=== PATIENT | male | born 1975 | race Caucasian/White ===

== ENCOUNTER 2021-02-04 14:28 | Emergency (ER) | payer OTHER, SELFPAY ==
--- NOTE | ~2021-02-04 | XR_ITS ---
XR chest 1V portable DATE: 02/04/2021 17:57 INDICATION: Cough, fever, shortness of breath TECHNIQUE: Portable AP chest on 02/04/2021 at 1758 hours COMPARISON: None FINDINGS: Normal heart size. No pleural effusion or pulmonary vascular congestion or pneumothorax. Th ere are patchy bilateral pulmonary infiltrates, which more prominent centrally. Differential diagnosi s includes bilateral pneumonia and pulmonary edema.. IMPRESSION: Patchy bilateral pulmonary infiltrates, greater centrally, suggesting bilateral pneumonia or pulmonary edema Reviewed, dictated and finalized at location A. IMPRESSION: Patchy bilateral pulmonary infiltrates, greater centrally, suggesti ng bilateral pneumonia or pulmonary edema
[2021-02-04 14:36] VITALS: BP 121/63; PULSE 83; RESP 18; TEMP 37; O2SAT 96
[2021-02-04 16:51] VITALS: BP 118/70; PULSE 91; RESP 18; O2SAT 99
[2021-02-04 17:44] VITALS: BP 108/84; PULSE 93; RESP 26; O2SAT 95
[2021-02-04 17:45] VITALS: BP 108/84; PULSE 84; RESP 22; TEMP 36.4; O2SAT 95
--- NOTE | 2021-02-04 17:53 | ED.URI ---
HPI - URI/Sore Throat General Chief Complaint: Upper Respiratory Infection Stated Complaint: cough and shortness of breath Time Seen by Provider: 02/04/21 17:43 Source: patient Mode of arrival: ambulatory Limitations: no limitations History of Present Illness HPI Narrative: This is a 45 year old male that presents to the ER for cold symptoms x 3 days. Reports cough, fever and sore throat. Denies chest pain or shortness of breath. Related Data Allergies Allergy/AdvReac Type Severity Reaction Status Date / Time No Known Allergies Allergy Verified 02/04/21 19:01 Review of Systems Review of Systems: Narrative: CONSTITUTIONAL: Reports fever ENT: Reports congestion, sore throat. Denies otalgia. CARDIOVASCULAR: Denies chest pain, or edema. RESPIRATORY: Reports cough. Denies dyspnea. All systems reviewed & are unremarkable except as noted in HPI and below PMFSH Past Medical History Medical History (Updated 02/04/21 @ 19:00 by Shaylee Fiore PA-C) No active medical problems Social History Social History (Updated 02/04/21 @ 17:54 by Shaylee Fiore PA-C) Smoking status: Current every day smoker Gender identity (if verbalized by the patient): Male Exam Narrative: Exam Narrative: GENERAL: Well-appearing, well-nourished, and in no acute distress. HEAD: Normocephalic, atraumatic. EYES: EOMI. ENT: Nares clear, no rhinorrhea or epistaxis. Mucous membranes moist. Oropharynx without tonsillar hypertrophy exudate or other lesions. Bilateral cerumen impaction NECK: Supple. No adenopathy or masses. CHEST: Clear to auscultation. No respiratory distress. No wheezes rales or rhonchi HEART: Regular rate and rhythm. No murmur heard. Normal peripheral pulses. EXTREMITIES: Normal range of motion. No edema. SKIN: Warm, dry, no rash. NEURO: No focal deficits. Alert and oriented x3. PSYCH: Normal mood and affect Course Vital Signs Vital signs: Vital Signs Temperature 98.6 F 02/04/21 14:36 Pulse Rate 83 02/04/21 14:36 Respiratory Rate 18 02/04/21 14:36 Blood Pressure 121/63 02/04/21 14:36 Pulse Oximetry 96 02/04/21 14:36 Temperature 97.6 F 02/04/21 17:45 Pulse Rate 84 02/04/21 17:45 Respiratory Rate 22 H 02/04/21 17:45 Blood Pressure 108/84 02/04/21 17:45 Pulse Oximetry 95 02/04/21 17:45 MDM - URI/Sore Throat MDM Narrative Medical decision making narrative: Patient presents to the emergency department for cold symptoms x3 days. He is afebrile and nontoxic-appearing. Oxygen saturation is normal on room air. CBC does show leukocytosis to 13.3. Also shows mild normocytic anemia with hemoglobin of 13.6. Metabolic panel shows hyponatremia, patient lightly hydrated while in the ED. Influenza screen is negative. Chest x-ray shows patchy bilateral infiltrates. SARS-CoV-2 was sent. Patient was updated on case findings. Will be started on antibiotics for community-acquired pneumonia, pending Covid results. He was instructed to follow-up with primary care doctor. He was given warnings to return to the ER Lab Data Attestation: I reviewed the patient's lab results. Result diagrams: 02/04/21 17:57 02/04/21 17:57 Labs: Lab Results 02/04/21 02/04/21 02/04/21 Range/Units 17:57 17:57 17:57 WBC 13.3 H (4.5-10.0) K/mm3 RBC 4.46 L (4.6-6.20) M/mm3 Hgb 13.6 L (14.0-18.0) g/dL Hct 37.7 L (42.0-52.0) % MCV 84.5 (80-100) fl MCH 30.5 (26-34) pg MCHC 36.1 H (32-36) g/dl RDW 11.6 (11.5-14.5) % Plt Count 191 (150-375) k/mm3 MPV 8.9 (7.4-10.4) fl Immature Gran % (Auto) 0.5 (0-0.5) % Neut % (Auto) 69.2 (45.5-73.1) % Lymph % (Auto) 23.4 (18.3-44.2) % [place] % (Auto) 6.3 (2.6-8.5) % Eos % (Auto) 0.2 (0-4.4) % Baso % (Auto) 0.4 (0.2-1.2) % Lymph # (Auto) 3.11 (0.9-3.2) K/mm3 [place] # (Auto) 0.8 H (0.1-0.6) K/mm3 Eos # (Auto) 0.0 (0-0.3) K/mm3 Baso # (Auto) 0.1 (0.0-0.1) K/mm3 Abs Immat Gran
[2021-02-04 18:13] LABS: Basophils Absolute Auto 0.1 K/mm3 (0.0-0.1); Basophils Percent Auto 0.4 % (0.2-1.2); Eosinophils Percent Auto 0.2 % (0-4.4); Hematocrit 37.7 % (42.0-52.0); Hemoglobin 13.6 g/dL (14.0-18.0); Immature Granulocyte Absolute 0.06 K/mm3 (0.00-0.031); Immature Granulocyte Percent A 0.5 % (0-0.5); Lymphocytes Absolute Auto 3.11 K/mm3 (0.9-3.2); Lymphocytes Percent Auto 23.4 % (18.3-44.2); Mean Corpuscular HGB Conc 36.1 g/dl (32-36); Mean Corpuscular Hemoglobin 30.5 pg (26-34); Mean Corpuscular Volume 84.5 fl (80-100); Mean Platelet Volume 8.9 fl (7.4-10.4); Monocytes Absolute Auto 0.8 K/mm3 (0.1-0.6); Monocytes Percent Auto 6.3 % (2.6-8.5); Neutrophils Absolute Auto 9.2 K/mm3 (1.3-6.7); Neutrophils Percent Auto 69.2 % (45.5-73.1); Platelet Count Result 191 k/mm3 (150-375); Red Blood Count 4.46 M/mm3 (4.6-6.20); Red Cell Distribution Width 11.6 % (11.5-14.5); White Blood Count 13.3 K/mm3 (4.5-10.0)
[2021-02-04 18:23] LABS: Alanine Aminotransferase 65 U/L (4-50); Albumin Level 3.9 g/dL (3.5-5.1); Alkaline Phosphatase 160 U/L (38-126); Anion Gap 5 mmol/L (8-16); Aspartate Amino Transferase 82 U/L (17-59); Bilirubin,Total 0.6 mg/dL (0.2-1.3); Blood Urea Nitrogen 5 mg/dL (9-20); Calcium 8.5 mg/dL (8.4-10.2); Carbon Dioxide 27 mmol/L (22-30); Chloride 97 mmol/L (98-107); Estimated CRCL calculation 132 ml/min; Estimated Glomerular Filt Rate > 60; Glucose 108 mg/dL (75-110); Potassium 3.8 mmol/L (3.4-5.0); Sodium 129 mmol/L (137-145)
[2021-02-04] MEDS: SODIUM CHLORIDE 0.9% IV 500 ML 999 ML IV CONT (18:39)
[2021-02-05 21:08] LABS: SARS-CoV-2 RNA PCR Negative
== END 2021-02-04 19:25 | disposition home or self-care (01) ==
PROVIDERS: Physician Assistant; Emergency Provider Emergency Medicine
DX: J18.9 Pneumonia, unspecified organism (principal); Z20.822 Contact with and (suspected) exposure to COVID-19; E87.1 Hypo-osmolality and hyponatremia; F17.200 Nicotine dependence, unspecified, uncomplicated
CPT/HCPCS: 36415; 71045; 80053; 85025; 87804; 96360; 99283; C9803; J7040; U0003; U0005

== ENCOUNTER 2021-02-06 05:24 | Inpatient (IN) | payer SELFPAY ==
[2021-02-06] VITALS (50 sets, daily range): BP systolic 110–144; BP diastolic 58–86; PULSE 86–124; RESP 18–32; TEMP 36.4–39.2; O2SAT 84–100; BMI 32.8
--- NOTE | ~2021-02-06 | XR_ITS ---
EXAMINATION: XR chest 1V portable EXAM DATE: 02/06/2021 06:18 INDICATION: Shortness of breath. Cough, fever. TECHNIQUE: Portable AP frontal chest x-ray was obtained. Comparison is made to prior examination from 02/04/2021. FINDINGS: There is now extensive bilateral perihilar distribution airspace disease, progression joselito red to 2 days earlier. Normal heart size. Infection and edema should be considered most likely. This would be an atypical distribution for COVID pneumonia, and other etiologies should be considered as w ell. No pneumothorax or pleural effusion. There are no osseous abnormalities identified. IMPRESSION: Progression of bilateral perihilar acute airspace disease, infection or edema. Reviewed, dictated and finalized at location A. IMPRESSION: Progression of bilateral perihilar acute airspace disease, infectio n or edema.
--- NOTE | ~2021-02-06 | XR_ITS ---
XR chest 1V portable 02/17/2021 08:16 Indication: Pneumonia. Dyspnea. Procedure: AP portable chest Comparison: Comparison to multiple prior studies sequentially, with oldest reviewed study dated 02/11. Findings: Improving bilateral airspace disease. No pleural effusion or pneumothorax. Heart size paola l. No acute osseous abnormality. Impression: 1: Improving bilateral airspace disease which may represent resolving pneumonia or edema. Reviewed, dictated and finalized at location B. Impression: 1: Improving bilateral airspace disease which may represent resolving pneumonia or edema.
--- NOTE | ~2021-02-06 | XR_ITS ---
XR chest 1V portable DATE: 02/11/2021 05:38 INDICATION: Pneumonia TECHNIQUE: Portable AP chest on 02/11/2021 at 0516 hours COMPARISON: 02/10/2021 portable AP chest at 0527 hours FINDINGS: There are persistent severe bilateral pulmonary patchy consolidating infiltrates, relativel y stable since 02/10/2021. Normal heart size. No pleural effusion or pneumothorax. IMPRESSION: Persistent severe bilateral pulmonary infiltrates, relatively stable since 02/10/2021 Reviewed, dictated and finalized at location A. IMPRESSION: Persistent severe bilateral pulmonary infiltrates, relatively stabl e since 02/10/2021
--- NOTE | ~2021-02-06 | XR_ITS ---
XR chest 1V portable DATE: 02/10/2021 05:34 INDICATION: Pneumonia TECHNIQUE: Portable AP chest on 02/10/2021 at 0527 hours COMPARISON: 02/09/2021 portable AP chest at 0732 hours FINDINGS: There are severe bilateral pulmonary infiltrates, most prominent centrally, which suggests possible pulmonary edema. Extensive bilateral pneumonia or superimposed pulmonary edema and pneumonia are not excluded. No pleural effusion or pneumothorax. Normal heart size. IMPRESSION: Severe bilateral pulmonary infiltrates, increased since 02/09/2021 Reviewed, dictated and finalized at location A.
--- NOTE | ~2021-02-06 | XR_ITS ---
EXAMINATION: XR chest 1V portable DATE: 02/09/2021 07:40 INDICATION: COVID pneumonia TECHNIQUE: frontal view of the chest was obtained. COMPARISON: Chest radiograph dated 02/08/2021 FINDINGS: Slight decrease in density of bilateral perihilar predominant airspace opacities. No pleural effusion or pneumothorax. The cardiomediastinal silhouette is normal. IMPRESSION: 1. Slight improvement in bilateral perihilar predominant opacities which could represent pulmonary ed selvin or pneumonia. Reviewed, dictated and finalized at location A. IMPRESSION: 1. Slight improvement in bilateral perihilar predominant opacities which could represent pulmonary edema or pneumonia.
--- NOTE | ~2021-02-06 | US_ITS ---
EXAMINATION: US abdomen limited DATE: 02/10/2021 11:55 INDICATION: Abnormal liver function tests. TECHNIQUE: Multiple grayscale and Doppler ultrasound images of the abdomen were obtained. COMPARISON: Chest CT 02/06/2021 FINDINGS: The visualized portions of the head of the pancreas are normal. The liver is normal without focal lesion. No liver surface nodularity. The gallbladder is normal in size. No gallstones or gallb ladder wall thickening. There was no sonographic Lal sign. The common duct is normal and measures 2 mm. IMPRESSION: 1. Normal right upper quadrant ultrasound. Reviewed, dictated and finalized at location B.
--- NOTE | ~2021-02-06 | CT_ITS ---
EXAMINATION: CTA chest PE protocol DATE: 02/15/2021 14:49 INDICATION: Elevated d-dimer. Increased shortness of breath. TECHNIQUE: Computed tomography (CT) of the chest was performed without intravenous contrast. The dose -length product was 797.63 mGy-cm. Automated exposure control and iterative reconstruction technique were employed. COMPARISON: CT dated 02/06/2021 FINDINGS: The study is technically adequate without evidence for pulmonary embolism. There is extensi ve combination of airspace consolidation and patchy groundglass opacification throughout both lungs w ith more consolidation centrally compared with prior study. There is developing bronchiectasis in bot h lungs. Mild mediastinal and hilar lymphadenopathy, likely reactive. IMPRESSION: 1. Extensive combination of airspace consolidation and peripheral groundglass opacification with deve loping bronchiectasis. Findings compatible with pneumonia. 2: No evidence for pulmonary embolism. 3: Bilateral hilar and mediastinal lymphadenopathy, likely reactive. Reviewed, dictated and finalized at location A. IMPRESSION: 1. Extensive combination of airspace consolidation and peripheral groundglass o pacification with developing bronchiectasis. Findings compatible with pneumonia . 2: No evidence for pulmonary embolism. 3: Bilateral hilar and mediastinal lymphadenopathy, likely reactive.
--- NOTE | ~2021-02-06 | XR_ITS ---
XR chest 1V portable DATE: 02/14/2021 05:34 INDICATION: Pneumonia TECHNIQUE: Portable AP chest on 02/14/2021 at 0527 hours COMPARISON: 02/13/2021 portable AP chest at 0515 hours FINDINGS: Again noted are extensive diffuse bilateral pulmonary infiltrates, more prominent centrally , relatively stable since 02/11/2021. No pleural effusion or pneumothorax. Normal heart size. IMPRESSION: Persistent severe bilateral pulmonary infiltrates Reviewed, dictated and finalized at location A.
--- NOTE | ~2021-02-06 | XR_ITS ---
XR chest 1V portable DATE: 02/13/2021 05:17 INDICATION: Pneumonia TECHNIQUE: Portable AP chest on 02/13/2021 at 0515 hours COMPARISON: 02/12/2021 portable AP chest at 0514 hours FINDINGS: There are persistent but slightly improved extensive bilateral pulmonary infiltrates since 02/12/2021. Normal heart size. No pleural effusion or pneumothorax. IMPRESSION: Severe extensive bilateral pulmonary infiltrates, slightly improved Reviewed, dictated and finalized at location A.
--- NOTE | ~2021-02-06 | XR_ITS ---
XR chest 1V portable DATE: 02/12/2021 05:36 INDICATION: Pneumonia TECHNIQUE: Portable AP chest on 02/12/2021 at 0514 hours COMPARISON: 02/11/2021 portable AP chest at 0516 hours FINDINGS: There are persistent diffuse bilateral pulmonary infiltrates, relatively stable since 2020. No pleural effusion. Normal heart size. No pneumothorax. IMPRESSION: No significant change of diffuse extensive bilateral pulmonary infiltrates since 1 Reviewed, dictated and finalized at location A. IMPRESSION: No significant change of diffuse extensive bilateral pulmonary infi ltrates since 02/11/2021
--- NOTE | ~2021-02-06 | CT_ITS ---
EXAMINATION: CTA chest PE protocol EXAM DATE: 02/06/2021 06:46 INDICATION: Dyspnea. Positive d dimer. TECHNIQUE: Spiral CTA of the chest (pulmonary arteries) was performed with 100 cc Omnipaque 350 intr avenous contrast injection. Images were acquired during the pulmonary arterial phase. Coronal maxi mum intensity projection 3D-reconstructions were created by the technologist on dedicated workstation . Axial, coronal and sagittal reformatted images were reviewed. The dose-length product (DLP) for t his examination was 736.10 mGy-cm. The exposure was tailored according to patient size (auto mA exp osure control), and iterative reconstruction (ASIR) was used as additional dose reduction technique. There is no prior study for comparison. FINDINGS: There are no pulmonary emboli in the 1st through 3rd order (central and interlobar) pulmon [place] arteries. Some loss of attenuation in the segmental pulmonary arteries from respiratory motion, some segmental regions not confidently evaluated. No intraluminal filling defects identified. No th oracic aortic dissection. There is bilateral central, perihilar distribution groundglass density likely acute airspace disease. Most likely this is acute infectious process or edema, with more likely be viral pneumonia than bact erial but COVID typically has a peripheral, not central distribution. Chronic considerations would in clude pulmonary alveolar proteinosis. There are no pleural or pericardial effusions. Tracheobronchi al tree is patent. There is no mediastinal, hilar or axillary lymphadenopathy. There is no pneumo thorax. Heart normal in size. No evidence of coronary arterial calcification. Upper abdomen is u nremarkable. The bones are unremarkable. IMPRESSION: 1. Limited basilar segmental evaluation. No central pulmonary emboli. 2. Extensive bilateral perihilar groundglass opacity, more likely infection than edema given normal heart size. Reviewed, dictated and finalized at location A. IMPRESSION: 1. Limited basilar segmental evaluation. No central pulmonary emboli. 2. Extensive bilateral perihilar groundglass opacity, more likely infection th an edema given normal heart size.
--- NOTE | ~2021-02-06 | XR_ITS ---
EXAMINATION: XR chest 1V portable DATE: 02/08/2021 09:50 INDICATION: Desaturation with increasing oxygen requirement. TECHNIQUE: frontal view of the chest was obtained. COMPARISON: Chest radiograph and CT dated 02/06/2021 FINDINGS: Persistent bilateral perihilar predominant consolidation and groundglass opacities with air bronchogr ams. No pleural effusion or pneumothorax. The cardiomediastinal silhouette is normal. Mild thoracic l evocurvature which may be accentuated by mild rightward rotation of the patient. IMPRESSION: 1. Unchanged prominent bilateral perihilar opacities which could represent pulmonary edema or pneumon ia. Reviewed, dictated and finalized at location A. IMPRESSION: 1. Unchanged prominent bilateral perihilar opacities which could represent pulm onary edema or pneumonia.
--- NOTE | 2021-02-06 05:34 | ECG_ITS ---
Measurements Intervals [place] Rate: 114 P: 21 [place]: 147 QRS: 46 QRSD: 85 T: 47 QT: 326 QTc: 449 Interpretive Statements SINUS TACHYCARDIA BASELINE ARTIFACT- I, III, AVL ABNORMAL ECG Electronically Signed On 02-06-2021 7:03:05 CDT by Guillermo Orr D.O.
[2021-02-06] MEDS: methylPREDNISolone SOD SUCC 125 MG VIAL IV PUSH (05:44)
[2021-02-06] MEDS: IPRATROPIUM BR 0.02% INH SOLN 0.5 MG/2.5 ML VIAL INHALATION ×6 (05:47→23:55)
[2021-02-06] MEDS: ALBUTEROL SULFATE NEB 2.5 MG/0.5 ML INH 5 MG INHALATION ×6 (05:47→23:56)
[2021-02-06 05:59] LABS: Basophils Absolute Auto 0.1 K/mm3 (0.0-0.1); Basophils Percent Auto 0.4 % (0.2-1.2); Eosinophils Absolute Auto 0.1 K/mm3 (0-0.3); Eosinophils Percent Auto 0.3 % (0-4.4); Hematocrit 37.4 % (42.0-52.0); Hemoglobin 13.5 g/dL (14.0-18.0); Immature Granulocyte Absolute 0.06 K/mm3 (0.00-0.031); Immature Granulocyte Percent A 0.4 % (0-0.5); Lymphocytes Absolute Auto 1.78 K/mm3 (0.9-3.2); Lymphocytes Percent Auto 10.5 % (18.3-44.2); Mean Corpuscular HGB Conc 36.1 g/dl (32-36); Mean Corpuscular Hemoglobin 30.3 pg (26-34); Mean Platelet Volume 9.4 fl (7.4-10.4); Monocytes Absolute Auto 0.5 K/mm3 (0.1-0.6); Monocytes Percent Auto 2.8 % (2.6-8.5); Neutrophils Absolute Auto 14.6 K/mm3 (1.3-6.7); Neutrophils Percent Auto 85.6 % (45.5-73.1); Platelet Count Result 196 k/mm3 (150-375); Red Blood Count 4.45 M/mm3 (4.6-6.20); Red Cell Distribution Width 11.6 % (11.5-14.5)
[2021-02-06 06:02] LABS: Alveolar/Arterial O2 Gradient 230.5 mmHg; Base Excess ABG -2.9 mEq/l (+/-2.0); Device NASAL CANNULA; Fractional Inspired Oxygen 44 %; HCO3 ABG 18.6 mEq/l (22.0-26.0); Modified Allen's Test Pass; Oxygen Content ABG 17.6 %vol (16.0-22.0); Oxygen Saturation ABG 91.8 % (95.0-100.0); Oxyhemoglobin 90.2 % THb (90.0-100.0); PCO2 ABG 24.6 mmHg (35.0-45.0); PO2 ABG 55.2 mmHg (80.0-100.0); PO2 FiO2 Ratio Arterial Blood 1.25 %; Site Drawn LEFT RADIAL; Total Hemoglobin 13.9 g/dL (12.0-18.0); pH ABG 7.496 (7.350-7.450)
--- NOTE | 2021-02-06 06:04 | ED.GENADULT ---
HPI - General Adult General Chief complaint: Shortness of Breath/Dyspnea Stated complaint: sob Time Seen by Provider: 02/06/21 05:28 History of Present Illness HPI narrative: Patient is a 45-year-old gentleman who presents to the emergency department with chief complaint of shortness of breath fever. The patient was seen in the emergency department in the last 24 hours had a negative Covid test and was diagnosed with pneumonia. The patient has been taking Zithromax using an inhaler and also taking Tessalon Perles the patient states he is continue to have shortness of breath and upon arrival to the emergency department had a room air saturation in the 80s. Patient states that he has still been continually coughing and still feels short of breath as though he cannot get a good breath of air. Related Data Allergies Allergy/AdvReac Type Severity Reaction Status Date / Time No Known Allergies Allergy Verified 02/04/21 19:01 Review of Systems Review of Systems: Narrative: A 10 system review of systems was completed on the patient and is negative except for what is stated in the HPI. Nursing and ancillary documentation was reviewed. PMFSH Past Medical History Medical History No active medical problems Social History Social History Smoking status: Current every day smoker Gender identity (if verbalized by the patient): Male Exam Narrative: Exam Narrative: GENERAL: Well-appearing, well-nourished, and in no acute distress. HEAD: Normocephalic, atraumatic. EYES: PERRLA and EOMI. ENT: Nares clear, no rhinorrhea or epistaxis. Mucous membranes moist. NECK: Supple. CHEST: Clear to auscultation. No respiratory distress. HEART: Regular rate and rhythm. No murmur heard. Normal peripheral pulses. ABDOMEN: Soft, nontender, nondistended, normal active bowel sounds. EXTREMITIES: Normal range of motion. No edema. SKIN: Warm, dry, no rash. NEURO: No focal deficits. Alert and oriented x3. PSYCH: Normal mood and affect. Course Vital Signs Vital signs: Vital Signs Temperature 38.8 C H 02/06/21 05:26 Pulse Rate 111 H 02/06/21 05:26 Respiratory Rate 23 H 02/06/21 05:26 Blood Pressure 129/86 02/06/21 05:26 Pulse Oximetry 94 02/06/21 05:26 Temperature 38.9 C H 02/06/21 07:02 Pulse Rate 117 H 02/06/21 07:02 Respiratory Rate 20 02/06/21 06:49 Blood Pressure 127/74 02/06/21 07:02 Pulse Oximetry 95 02/06/21 07:02 Medical Decision Making Vital Signs Vital Signs: Vital Signs Temperature 38.8 C H 02/06/21 05:26 Pulse Rate 111 H 02/06/21 05:26 Respiratory Rate 23 H 02/06/21 05:26 Blood Pressure 129/86 02/06/21 05:26 Pulse Oximetry 94 02/06/21 05:26 Temperature 38.9 C H 02/06/21 07:02 Pulse Rate 117 H 02/06/21 07:02 Respiratory Rate 20 02/06/21 06:49 Blood Pressure 127/74 02/06/21 07:02 Pulse Oximetry 95 02/06/21 07:02 Lab Data Result diagrams: 02/06/21 05:52 02/06/21 05:52 Labs: Lab Results 02/06/21 02/06/21 02/06/21 Range/Units 05:52 05:52 05:52 WBC 17.0 H (4.5-10.0) K/mm3 RBC 4.45 L (4.6-6.20) M/mm3 Hgb 13.5 L (14.0-18.0) g/dL Hct 37.4 L (42.0-52.0) % MCV 84.0 (80-100) fl MCH 30.3 (26-34) pg MCHC 36.1 H (32-36) g/dl RDW 11.6 (11.5-14.5) % Plt Count 196 (150-375) k/mm3 MPV 9.4 (7.4-10.4) fl Immature Gran % (Auto) 0.4 (0-0.5) % Neut % (Auto) 85.6 H (45.5-73.1) % Lymph % (Auto) 10.5 L (18.3-44.2) % [place] % (Auto) 2.8 (2.6-8.5) % Eos % (Auto) 0.3 (0-4.4) % Baso % (Auto) 0.4 (0.2-1.2) % Lymph # (Auto) 1.78 (0.9-3.2) K/mm3 [place] # (Auto) 0.5 (0.1-0.6) K/mm3 Eos # (Auto) 0.1 (0-0.3) K/mm3 Baso # (Auto) 0.1 (0.0-0.1) K/mm3 Abs Immat Gran (auto) 0.06 H (0.00-0.031) K/mm3 Absolute Neuts (auto) 14.6 H
[2021-02-06 06:10] LABS: Alanine Aminotransferase 52 U/L (4-50); Albumin Level 3.8 g/dL (3.5-5.1); Alkaline Phosphatase 170 U/L (38-126); Anion Gap 9 mmol/L (8-16); Aspartate Amino Transferase 122 U/L (17-59); Bilirubin,Total 1.3 mg/dL (0.2-1.3); Blood Urea Nitrogen 4 mg/dL (9-20); Calcium 8.6 mg/dL (8.4-10.2); Carbon Dioxide 25 mmol/L (22-30); Chloride 93 mmol/L (98-107); Estimated CRCL calculation 149 ml/min; Estimated Glomerular Filt Rate > 60; Glucose 119 mg/dL (75-110); Potassium 3.5 mmol/L (3.4-5.0); Sodium 127 mmol/L (137-145)
[2021-02-06 06:11] LABS: INR 1.1; Prothrombin Time 14.8 Seconds (11.1-14.7)
[2021-02-06 06:12] LABS: Partial Thromboplastin Time 39.9 SECONDS (22.3-36.8)
[2021-02-06 06:14] LABS: D Dimer 3.27 ug/mL (<0.48)
[2021-02-06 06:19] LABS: NT Pro B Type Natriuretic Pept 858 PG/ML (5-100)
[2021-02-06 06:21] LABS: Troponin I < 0.012 ng/mL (0.000-0.034)
[2021-02-06 06:47] LABS: Add Urine Microscopic? YES; Appearance Urine Cloudy (Clear); Bacteria Urine Trace /hpf; Bilirubin Urine Negative (Negative); Blood Urine 2+ (Negative); Color Urine Yellow (Yellow); Glucose Urine UA Negative (Negative); Granular Casts Urine 15-19 /lpf; Ketones Urine 2+ mg/dL (Negative); Leukocyte Esterase Ur Negative LEU/UL (Negative); Mucus Urine Rare /lpf; Nitrate Urine Negative (Negative); Protein Urine 2+ mg/dL (Negative); Specific Grav Ur 1.013 (1.001-1.035); Squamous Epithelial Cell Urine Rare /hpf (Few); WBC Urine 0-3 /hpf
[2021-02-06] MEDS: ACETAMINOPHEN 500 MG TABLET 1000 MG PO (07:25)
--- NOTE | 2021-02-06 08:18 | ADMGEN ---
This patient, Dakotah Christensen, was admitted to [facility] Surg Room 306-01. Patient/family oriented to hospital policies and general routines including ID bracelet, bed and alarms, visiting hours, pain management, procedures, bathroom and other care routines, personal items, smoking policy, room service/diet, and visiting hours. Information on how to activate the Rapid Response Team has been discussed. Patient/Family are encouraged to report perceived risks to care and to ask questions if they do not understand what they are told or what they should do.
[2021-02-06] MEDS: SODIUM CHLORIDE 0.9% IV 1,000 ML 125 ML IV CONT ×2 (08:25→15:45)
--- NOTE | 2021-02-06 09:06 | PM.IMHP ---
H&P: HPI History of Present Illness Date/Time: 02/06/21 09:06 Chief Complaint: shortness of breath Narrative: this is a 45-year-old male with no significant past medical history he smokes 1 pack per day of cigarettes patient presented to the emergency room the day before due to chills rigors cough dry nonproductive of sputum he was tested for COVID test results came back negative and he was discharged home on Tessalon Perles , Zithromax and albuterol inhaler. patient went home and returned to the emergency room due to worsening shortness of breath. repeated chest x-ray was significant for diffuse bilateral infiltrate of the lungs. patient states that he has had chills or rigors fevers generalized malaise fatigue poor appetite, no nausea no vomiting no diarrhea, no abdominal pain, no pain or burning with urination, no leg swelling, no hemoptysis. a CTA showed no pulmonary emboli but extensive ground-glass opacities. in the emergency room patient was saturating on 85% on room air according to his pulse ox was initially placed on 6 L of oxygen by nasal cannula. Review of Systems Review of Systems: Narrative: patient presented to the emergency room due to generalized malaise chills rigors shortness of breath dry cough for close to a week he had been seen the day before but came back due to worsening shortness of breath Constitutional: Constitutional: Reports body ache(s), Reports chills, Reports fatigue, Reports fever(s) and Reports poor appetite Eyes: Comments: no vision changes ENT: Comments: no earache no sore throat no nasal congestion Cardiovascular: Comments: no chest pain no PND no orthopnea no leg swelling Respiratory: Comments: dry cough shortness of breath Gastrointestinal: Comments: no nausea no vomiting no abdominal pain no diarrhea Genitourinary: Comments: no pain or burning with urination Musculoskeletal: Comments: muscle aches and pains Integumentary/Breasts: Comments: no rash Neurologic: Comments: no sensorimotor deficit Endocrine: Comments: no heat or cold intolerance no polydipsia polyphagia or polyuria Hematologic/Lymphatic: Comments: no lymphadenopathies PMFSH Past Medical History Medical History No active medical problems Social History Social History Years smoked: 15 Smoking status: Former smoker Smoking end date: 01/31/21 Alcohol intake: never Substance use: never Gender identity (if verbalized by the patient): Male Spiritual care concerns: No Meds Home Medications and Allergies Home Medications Medication Instructions Recorded Confirmed Type albuterol sulfate 2 inh INHALATION Q4-6H PRN #1 ea 02/04/21 02/06/21 Rx azithromycin See Rx Instructions .ROUTE 02/04/21 02/06/21 Rx .COMPLEX #6 tablet benzonatate [Tessalon Perles] 100 mg PO BID PRN #10 cap 02/04/21 02/06/21 Rx Allergies Allergy/AdvReac Type Severity Reaction Status Date / Time No Known Allergies Allergy Verified 02/06/21 08:47 Vital Signs Vital Signs - 24 hr 02/06/21 05:26 02/06/21 05:56 02/06/21 06:08 Temperature 102 F H Pulse Rate 111 H 108 H 123 H Respiratory Rate 23 H 27 H 32 H Blood Pressure 129/86 Pulse Oximetry 94 02/06/21 06:16 02/06/21 06:20 02/06/21 06:21 Temperature 102 F H Pulse Rate 119 H 114 H 120 H Respiratory Rate 26 H 24 H Blood Pressure 144/69 H Pulse Oximetry 95 95 97 02/06/21 06:30 02/06/21 06:49 02/06/21 06:50 Temperature Pulse Rate 116 H 114 H 112 H Respiratory Rate 20 Blood Pressure 141/73 H Pulse Oximetry 95 96 92 02/06/21 07:00 02/06/21 07:01 02/06/21 07:02 Temperature 102.1 F H Pulse Rate 111 H 112 H 117 H Respiratory Rate Blood Pressure 127/74 127/74 Pulse Oximetry 96 94 95 02/06/21 07:25 02/06/21 07:30 02/06/21 08:00 Temperature 102.5 F H Pulse Rate 105 H Respiratory Ra
[2021-02-06] MEDS: NICOTINE (*PBKC) 21 MG PATCH 1 PATCH TRANSDERM (10:07)
[2021-02-06] MEDS: BENZONATATE 100 MG CAPSULE PO ×3 (10:15→21:56)
[2021-02-06] MEDS: ACETAMINOPHEN 325 MG TABLET 650 MG PO ×2 (12:11→17:41)
[2021-02-06] MEDS: ALBUTEROL SULFATE NEB 2.5 MG/0.5 ML INH 20 MG (16:48)
[2021-02-06 17:32] LABS: Alanine Aminotransferase 51 U/L (4-50); Estimated CRCL calculation 147 ml/min; Estimated Glomerular Filt Rate > 60
[2021-02-06 18:01] LABS: Alveolar/Arterial O2 Gradient 623.1 mmHg; Base Excess ABG -2.8 mEq/l (+/-2.0); Fractional Inspired Oxygen 100 %; HCO3 ABG 19.8 mEq/l (22.0-26.0); Oxygen Content ABG 17.1 %vol (16.0-22.0); Oxygen Saturation ABG 93.1 % (95.0-100.0); Oxyhemoglobin 91.4 % THb (90.0-100.0); PCO2 ABG 28.6 mmHg (35.0-45.0); PO2 ABG 61.3 mmHg (80.0-100.0); PO2 FiO2 Ratio Arterial Blood 0.61 %; Total Hemoglobin 13.3 g/dL (12.0-18.0); pH ABG 7.459 (7.350-7.450)
[2021-02-06 18:02] LABS: Modified Allen's Test Pass; Site Drawn LEFT RADIAL
[2021-02-06 18:03] LABS: Device HIGH FLOW NASAL CANN
--- NOTE | 2021-02-06 18:59 | PC.NURSE ---
report given to C[place] in IMU at 1825. all questions answered. patient transferred per bed with 15 L oxygen to room 232. Jeannie (patient's ) aware of transfer and all questions answered at this time.
[2021-02-06] MEDS: REMDESIVIR 200 MG/NS 250 ML 200 MG/250 ML BAG 250 MG IVPB (21:53)
--- NOTE | 2021-02-06 22:07 | PC.NURSE ---
Jeremy Christensen (patient's brother) called and is requesting that patient be transferred to [facility]. I spoke with the patient at length and he does not want to be transferred. He is feeling better and wants to stay at [facility]. Patient will text his brother and talk to him about it.
[2021-02-07] VITALS (30 sets, daily range): BP systolic 99–130; BP diastolic 52–76; PULSE 75–117; RESP 20–38; TEMP 36.6–37.2; O2SAT 93–100
[2021-02-07] MEDS: SODIUM CHLORIDE 0.9% IV 1,000 ML 125 ML IV CONT ×3 (01:16→18:50)
[2021-02-07] MEDS: IPRATROPIUM BR 0.02% INH SOLN 0.5 MG/2.5 ML VIAL INHALATION ×5 (03:09→20:06)
[2021-02-07] MEDS: ALBUTEROL SULFATE NEB 2.5 MG/0.5 ML INH 5 MG INHALATION ×5 (03:09→20:06)
[2021-02-07 04:55] LABS: Basophils Absolute Auto 0.1 K/mm3 (0.0-0.1); Basophils Percent Auto 0.2 % (0.2-1.2); Hematocrit 33.3 % (42.0-52.0); Hemoglobin 11.8 g/dL (14.0-18.0); Immature Granulocyte Absolute 0.17 K/mm3 (0.00-0.031); Immature Granulocyte Percent A 0.7 % (0-0.5); Lymphocytes Absolute Auto 1.97 K/mm3 (0.9-3.2); Lymphocytes Percent Auto 8.6 % (18.3-44.2); Mean Corpuscular HGB Conc 35.4 g/dl (32-36); Mean Corpuscular Hemoglobin 30.3 pg (26-34); Mean Corpuscular Volume 85.6 fl (80-100); Mean Platelet Volume 9.4 fl (7.4-10.4); Monocytes Absolute Auto 0.7 K/mm3 (0.1-0.6); Neutrophils Absolute Auto 20.2 K/mm3 (1.3-6.7); Neutrophils Percent Auto 87.5 % (45.5-73.1); Platelet Count Result 230 k/mm3 (150-375); Red Blood Count 3.89 M/mm3 (4.6-6.20); Red Cell Distribution Width 11.9 % (11.5-14.5)
[2021-02-07 06:48] LABS: Anion Gap 4 mmol/L (8-16); Blood Urea Nitrogen 5 mg/dL (9-20); Calcium 8.1 mg/dL (8.4-10.2); Carbon Dioxide 28 mmol/L (22-30); Chloride 100 mmol/L (98-107); Estimated CRCL calculation 147 ml/min; Estimated Glomerular Filt Rate > 60; Glucose 138 mg/dL (75-110); Potassium 3.6 mmol/L (3.4-5.0); Sodium 132 mmol/L (137-145)
[2021-02-07 09:25] LABS: Alanine Aminotransferase 43 U/L (4-50)
[2021-02-07] MEDS: DEXAMETHASONE SOD PHOS INJ 4 MG/ML VIAL 6 MG IV PUSH (09:30)
[2021-02-07] MEDS: NICOTINE (*PBKC) 21 MG PATCH 1 PATCH TRANSDERM (09:30)
--- NOTE | 2021-02-07 10:47 | PM.IMPN ---
Progress Note: A&P Assessment and Plan (1) Acute respiratory failure with hypoxia: Code(s): J96.01 - Acute respiratory failure with hypoxia Status: Acute Assessment and Plan: PATIENT WAS ON BIPAP OVERNIGHT IMPROVED CONTINUE TO WEAN OFF OF OXYGEN TRY AND KEEP O2 SATS AT 94% ACAPELLA INCENTIVE SPIROMETER CONTINUE TO MONITOR (2) Community acquired pneumonia: Qualifiers: Laterality: unspecified laterality Qualified Code(s): J18.9 - Pneumonia, unspecified organism Code(s): J18.9 - Pneumonia, unspecified organism Status: Acute Assessment and Plan: PATIENT ON CEFTRIAXONE AND AZITHROMYCIN REMDESIVIR and DEXAMETHASONE SUPPORTIVE CARE AWAITING COVID 19 PCR (3) Tobacco dependence: Code(s): F17.200 - Nicotine dependence, unspecified, uncomplicated Status: Acute Assessment and Plan: NICOTINE PATCH Subjective Date/time seen: 02/07/21 10:47 I FEEL MUCH BETTER I HAVE BEEN COUGHING UP LOT OF STUFF Review of Systems Review of Systems: Narrative: COUGHING UP A LOT OF EXPECTORATION Constitutional: Comments: NO FEVERS NO RIGORS NO CHILLS Cardiovascular: Comments: NO CHEST PAIN NO PND NO ORTHOPNEA Respiratory: Comments: PRODUCTIVE COUGH. Gastrointestinal: Comments: NO NAUSEA NO VOMITING NO DIARRHEA NO CONSTIPATION Musculoskeletal: Comments: NO MUSCLE ACHE OR JOINT PAIN Integumentary/Breasts: Comments: NO RASHES Neurologic: Comments: NO SENSORIMOTOR DEFICIT Exam Narrative: Exam Narrative: PATIENT IS SITTING IN BED Const: General: comfortable, no acute distress, well developed, alert, awake and other (WELL-APPEARING) Nutritional Appearance: average body habitus Orientation/consciousness: patient oriented x3 HENMT: Head: normal to inspection, normocephalic and atraumatic Ears: hearing grossly normal bilaterally Face and sinus: normal facial exam Eyes: General: appearance normal, both eyes and all related structures Pupils: Equal, round and reactive pupils present EOM: EOMs intact bilaterally Neck: Neck: full ROM, no lymphadenopathy and no JVD Thyroid: thyroid normal Lymphatic: no lymphadenopathy noted Resp: Effort & Inspection: normal respiratory effort and able to speak in complete sentences Auscultation: clear to auscultation bilaterally Cardio: Jugular venous distension: no JVD Rate: regular rate Rhythm: regular rhythm Heart sounds: S1 normal heart sound present and S2 normal heart sound present GI: GI Palp: Yes Soft to palpation and Yes No hepatosplenomegaly present : General: Yes deferred Skin: Rashes: no rashes Wounds: no wounds Neuro: General: patient oriented x3 and CN's II-XI intact bilaterally Cranial nerves: Yes CN's II-XII intact bilaterally and Yes Equal, round and reactive pupils present Cognition (Neuro): normal cognition Speech: normal speech Gait exam (Neuro): Normal gait present Motor exam (neuro): 5/5 motor strength present throughout Extrem: General: normal to inspection, full ROM, no joint enlargement and no pedal edema Objective Data Vital Signs Vital Signs: Vital Signs - 24 hr 02/06/21 12:01 02/06/21 12:11 02/06/21 12:41 Temperature 100.0 F H 100 F H Pulse Rate 87 90 Respiratory Rate 22 H 20 Blood Pressure 117/64 Pulse Oximetry 96 94 02/06/21 12:51 02/06/21 13:10 02/06/21 14:45 Temperature 97.5 F L Pulse Rate 96 Respiratory Rate 20 Blood Pressure Pulse Oximetry 96 84 L 02/06/21 14:50 02/06/21 14:58 02/06/21 15:46 Temperature Pulse Rate Respiratory Rate Blood Pressure Pulse Oximetry 89 L 92 95 02/06/21 16:00 02/06/21 16:22 02/06/21 16:32 Temperature 99.2 F Pulse Rate 91 105 H 112 H Respiratory Rate 24 H 22 H 22 H Blood Pressure 110/64 Pulse Oximetry 95 92 02/06/21 16:48 02/06/21 17:40 02/06/21 17:41 Temperature 99.8 F H Pulse Rate 107 H Respiratory Rate 22 H Blood Pressure Pulse Oximetry 85 L 02/06/21 17:44 02/06/21
[2021-02-07] MEDS: SODIUM CHLORIDE 0.9% IV 250 ML 30 ML IV CONT (14:50)
[2021-02-07] MEDS: ACETAMINOPHEN 325 MG TABLET 650 MG PO (15:11)
[2021-02-07] MEDS: BENZONATATE 100 MG CAPSULE PO ×2 (15:32→21:41)
[2021-02-07] MEDS: TUBING, BLOOD PLUM PUMP TUBING 1 EACH XX (17:25)
[2021-02-07] MEDS: WATER FOR IRRIGATION, STERILE 1,000 ML BOTTLE 1000 ML (17:25)
[2021-02-07 19:39] LABS: SARS-CoV-2 RNA PCR Negative
[2021-02-07] MEDS: REMDESIVIR 100 MG/NS 250 ML 100 MG/250 ML BAG 250 MG IVPB (20:30)
[2021-02-08] VITALS (32 sets, daily range): BP systolic 114–148; BP diastolic 63–72; PULSE 66–112; RESP 18–40; TEMP 36.6–37.9; O2SAT 92–100
--- NOTE | 2021-02-08 | ECHO_ITS ---
Patient Info Name: Dakotah Christensen Age: 45 years : 1975 Gender: Male Ht: 72 in Wt: 242 lbs BSA: 2.39 m2 HR: 112 bpm BP: 124 / 66 mmHg Heart Rhythm: Sinus Rhythm Technical Quality: Poor Exam Date: 02/08/2021 12:35 PM Exam Location: [facility] Pulmonary Patient Status: Inpatient Admit Date: 02/06/2021 Staff Ordering Physician: Tali Gardner MD Development Technical Lead: Mia Baez RDCS Attending Provider: Janie Francisco MD Referring Physician: Jj PEARCE; Exam Type: CA echo dop color flow w con Study Info Complete two-dimensional, color flow and Doppler transthoracic echocardiogram is performed with contrast to opacify the left ventricle and to improve the deliniation of the left ventricle endocardial borders. Contrast/Agitated Saline Contrast/Ag. Saline: Definity Amount: 4.00 ml Summary 1. Left ventricular chamber size, wall thickness, systolic and diastolic function are normal with no regional wall motion abnormalities with an estimated ejection fraction of 60-65%. 2. The distal ascending aorta and aortic arch are not well seen but appear abnormal; there is probably moderate aortic atherosclerosis. There was some aliasing of color flow in this area, but Doppler velocities were normal suggesting no severe narrowing of the aorta. The aortic root and proximal ascending aorta appear normal. 3. No significant valve disease. 4. Normal sinus rhythm. 5. Technically difficult study; definity echo contrast used to identify endocardial borders. Left Ventricle Left ventricular chamber size, wall thickness, systolic and diastolic function are normal with no regional wall motion abnormalities with an estimated ejection fraction of 60-65%. Left ventricular chamber dimension is normal. Left ventricular systolic function is normal, estimated at 60-65%. There is no increased left ventricular wall thickness. Left ventricular septal wall motion is normal. The left ventricular diastolic function is normal. Right Ventricle Right ventricular chamber dimension is normal. Right ventricular systolic function is normal. Left Atria Left atrial chamber dimension is normal. Right Atria Right atrial chamber dimension is normal. Aortic Valve The aortic valve is trileaflet. There is no aortic valve sclerosis. There is no aortic valve stenosis. There is no aortic valve regurgitation. Pulmonic Valve The pulmonic valve is normal. There is no pulmonic valve stenosis. There is no pulmonic regurgitation. Mitral Valve The mitral valve has normal leaflets. There is no mitral valve stenosis. There is trace mitral valve regurgitation. Tricuspid Valve The tricuspid valve leaflets are normal. There is no significant tricuspid valve stenosis. There is trace tricuspid valve regurgitation. No pulmonary hypertension, estimated pulmonary arterial systolic pressure is Empty. Pericardium/Pleural The pericardium appears normal. There is no pericardial effusion. Inferior Vena Cava Normal inferior vena cava with >50% collapse upon inspiration consistent with Empty right atrial pressure, Empty. Aorta The aortic root size at the sinus of Valsalva is normal. The prox ascending aorta size is normal. The distal ascending aorta and aortic arch are not well seen but appear abnormal; there is probably moderate aortic atherosclerosis. There was some aliasing of color flow in this area, but Doppler velocities were normal suggesting no
[2021-02-08] MEDS: IPRATROPIUM BR 0.02% INH SOLN 0.5 MG/2.5 ML VIAL INHALATION ×7 (01:10→23:46)
[2021-02-08] MEDS: ALBUTEROL SULFATE NEB 2.5 MG/0.5 ML INH 5 MG INHALATION ×7 (01:10→23:46)
[2021-02-08] MEDS: SODIUM CHLORIDE 0.9% IV 1,000 ML 125 ML IV CONT (03:27)
[2021-02-08] MEDS: ACETAMINOPHEN 325 MG TABLET 650 MG PO ×4 (05:23→21:28)
[2021-02-08 05:54] LABS: Alanine Aminotransferase 50 U/L (4-50); Estimated CRCL calculation 169 ml/min; Estimated Glomerular Filt Rate > 60
[2021-02-08] MEDS: BENZONATATE 100 MG CAPSULE PO ×2 (09:06→17:04)
[2021-02-08] MEDS: DEXAMETHASONE SOD PHOS INJ 4 MG/ML VIAL 6 MG IV PUSH (09:06)
[2021-02-08] MEDS: NICOTINE (*PBKC) 21 MG PATCH 1 PATCH TRANSDERM (09:06)
[2021-02-08 10:02] LABS: Alveolar/Arterial O2 Gradient 309.1 mmHg; Base Excess ABG 1.5 mEq/l (+/-2.0); Device HIGH FLOW NASAL CANN; Fractional Inspired Oxygen 60 %; HCO3 ABG 24.8 mEq/l (22.0-26.0); Modified Allen's Test Pass; Oxygen Content ABG 19.1 %vol (16.0-22.0); Oxygen Saturation ABG 96.5 % (95.0-100.0); Oxyhemoglobin 95.4 % THb (90.0-100.0); PCO2 ABG 34.9 mmHg (35.0-45.0); PO2 ABG 80.3 mmHg (80.0-100.0); PO2 FiO2 Ratio Arterial Blood 1.34 %; Site Drawn RIGHT RADIAL; Total Hemoglobin 14.2 g/dL (12.0-18.0); pH ABG 7.469 (7.350-7.450)
--- NOTE | 2021-02-08 10:38 | PM.IMPN ---
Progress Note: A&P Assessment and Plan (1) Acute respiratory failure with hypoxia: Code(s): J96.01 - Acute respiratory failure with hypoxia Status: Acute Assessment and Plan: Patient on BiPAP at nighttime On taping L of oxygen by nasal cannula during the daytime Which switched to vancomycin and Zosyn Consulted supervisor plasma for possible transfer to intensive care unit should the patient get worse. (2) Community acquired pneumonia: Qualifiers: Laterality: unspecified laterality Qualified Code(s): J18.9 - Pneumonia, unspecified organism Code(s): J18.9 - Pneumonia, unspecified organism Status: Acute Assessment and Plan: Patient has been on Remdesivir and Dexamethasone however has tested negative for COVID x2 Was on ceftriaxone and Rocephin Will switch to Zosyn and vanc (3) Tobacco dependence: Code(s): F17.200 - Nicotine dependence, unspecified, uncomplicated Status: Acute Assessment and Plan: Nicotine patch Subjective Date/time seen: 02/08/21 10:38 I feel short of breath Review of Systems Review of Systems: ROS unobtainable: Yes unobtainable due to medical condition (The patient gets very short of breath with long sentences) Exam Narrative: Exam Narrative: Sitting in bed mild respiratory distress on high-flow nasal cannula Const: General: comfortable, well developed, alert, awake, acute distress mild and respiratory and anxious Nutritional Appearance: average body habitus Orientation/consciousness: patient oriented x3 HENMT: Head: normal to inspection, normocephalic and atraumatic Ears: hearing grossly normal bilaterally Face and sinus: normal facial exam Eyes: General: appearance normal, both eyes and all related structures Pupils: Equal, round and reactive pupils present EOM: EOMs intact bilaterally Neck: Neck: full ROM, no lymphadenopathy and no JVD Thyroid: thyroid normal Lymphatic: no lymphadenopathy noted Resp: Effort & Inspection: tachypneic Auscultation: clear to auscultation bilaterally and diminished lung sounds Cardio: Jugular venous distension: no JVD Rate: regular rate Rhythm: regular rhythm Heart sounds: S1 normal heart sound present and S2 normal heart sound present GI: GI Palp: Yes Soft to palpation and Yes No hepatosplenomegaly present : General: Yes deferred Skin: Rashes: no rashes Wounds: no wounds Neuro: General: patient oriented x3 and CN's II-XI intact bilaterally Cranial nerves: Yes CN's II-XII intact bilaterally and Yes Equal, round and reactive pupils present Cognition (Neuro): normal cognition Speech: normal speech Gait exam (Neuro): Normal gait present Motor exam (neuro): 5/5 motor strength present throughout Extrem: General: normal to inspection, full ROM, no joint enlargement and no pedal edema Objective Data Vital Signs Vital Signs: Vital Signs - 24 hr 02/07/21 12:00 02/07/21 14:00 02/07/21 14:45 Temperature 98.3 F 98.3 F Pulse Rate 87 100 94 Respiratory Rate 20 20 Blood Pressure 120/66 110/64 Pulse Oximetry 94 93 95 02/07/21 15:05 02/07/21 15:40 02/07/21 15:53 Temperature 99 F Pulse Rate 100 104 H 110 H Respiratory Rate 24 H 20 20 Blood Pressure 104/59 L Pulse Oximetry 93 02/07/21 16:00 02/07/21 16:05 02/07/21 16:30 Temperature 98.2 F 98.2 F 98 F Pulse Rate 102 H 108 H 101 H Respiratory Rate 26 H 26 H 26 H Blood Pressure 110/59 L 110/59 L 99/57 L Pulse Oximetry 93 95 93 02/07/21 18:45 02/07/21 20:00 02/07/21 20:05 Temperature 98.3 F Pulse Rate 89 96 Respiratory Rate 24 H Blood Pressure 122/76 Pulse Oximetry 94 95 02/07/21 20:06 02/07/21 20:16 02/07/21 22:00 Temperature Pulse Rate 86 90 96 Respiratory Rate 20 20 Blood Pressure Pulse Oximetry 02/07/21 23:15 02/08/21 00:00 02/08/21 01:10 Temperature 98 F Pulse Rate 97 81 91 Respiratory Rate 27 H 25 H 24 H Blood Pressure 114/67 Pulse Oximetry 95 99 92 02/08/21 01:12 02/08
--- NOTE | 2021-02-08 11:05 | WPDCNINT ---
Assessment and Plan Assessment and plan (1) Acute respiratory failure with hypoxia: Code(s): J96.01 - Acute respiratory failure with hypoxia Status: Acute Assessment and Plan: Acute respiratory failure secondary to pneumonia, possible COVID-19 but SARS-CoV-2 PCR has been negative x2 -will repeat oropharyngeal SARs swab -will place patient on Airvo -continue albuterol, Atrovent nebs, add pulmicort -switched to vancomycin and Zosyn - CTA chest and CXR and ABGs reviewed (2) Community acquired pneumonia: Qualifiers: Laterality: unspecified laterality Qualified Code(s): J18.9 - Pneumonia, unspecified organism Code(s): J18.9 - Pneumonia, unspecified organism Status: Acute Assessment and Plan: Bacterial versus viral pneumonia -repeat COVID-19 swab -continue antibiotics and bronchodilators the above (3) Tobacco dependence: Code(s): F17.200 - Nicotine dependence, unspecified, uncomplicated Status: Acute Assessment and Plan: Patient stop smoking about 12 days ago prior to which he was smoking 1 packet for 25 years -he is going to quit smoking (4) Suspected 2019 novel coronavirus infection: Code(s): Z20.822 - Contact with and (suspected) exposure to COVID-19 Status: Acute Assessment and Plan: SARS-CoV-2 PCR PCR negative x2 -will decrease swabbed him -will obtain inflammatory markers and trend if elevated (5) DVT prophylaxis: Code(s): Z29.9 - Encounter for prophylactic measures, unspecified Status: Acute Assessment and Plan: Lovenox (6) Dietary counseling and surveillance: Code(s): Z71.3 - Dietary counseling and surveillance Status: Acute Assessment and Plan: Continue heart healthy diet Additional Plan Discussed with patient updated with his condition and plan of care. Have answered all his questions, he is aware that he will be going on the Airvo. He stated he does not like the BiPAP. Also discussed with him if his oxygen requirements increased is respiratory rate increases he might need intubation to which he is agreeable Code status: Full code Critical care time spent: 47 minutes This dictation may have been done utilizing a voice recognition system. Attempts have been made to correct errors. However, there may be uncorrected grammatical, spelling, and recognition errors present. Due to a high probability of clinically significant, life threatening deterioration, the patient required my highest level of preparedness to intervene emergently and I personally spent this critical care time directly and personally managing the patient. This critical care time included obtaining a history; examining the patient; pulse oximetry; ordering and review of studies; arranging urgent treatment with development of a management plan; evaluation of patient's response to treatment; frequent reassessment; and discussions with other providers. It was exclusive of separately billable procedures and treating other patients and teaching time. Please see Assessment and Plan section and the rest of the note for further information on patient assessment and treatment Accounting Coordinator Consult Note Consult date: 02/08/21 Time Seen: 09:55 Reason for consult: Acute hypoxic respiratory failure severe pneumonia, leukocytosis HPI: Dakotah Christensen is a 45 year old male with history of tobacco abuse and no other significant medical problems presented to the ER on 02/06/2021. Patient was seen on 02/04/2021 in the ER and was negative for SARS-CoV-2 PCR PCR and was diagnosed with pneumonia in sent home on azithromycin, albuterol and Tessalon Perles, only to return on 02/06 with increasing shortness of breath. In the ER patient's O2 sats were in the 80s on room air he also complains of chills and rigors with general malaise, fatigue, poor appetite. Denies any nausea, vomiting or diarrhea. Denies any abdominal pain, chest pain, leg swelling. Chest CTA
--- NOTE | 2021-02-08 11:32 | PC.NURSE ---
Orders to transfer to ICU- report given to Gloria RN- pt transferred via bed with O2 to room ICU 1- belongings with pt; notified of transfer
[2021-02-08 12:29] LABS: Lactic Acid Reflex 2.4 mmol/L (0.7-2.1)
--- NOTE | 2021-02-08 12:30 | PC.NURSE ---
This patient, Dakotah Christensen, was received from [[id number]] on 02/08/21 at 1130, into ICU-1. Report received from HUMAIRA Cano @ [id number]. Patient/family oriented to unit policies and routines
[2021-02-08 12:32] LABS: Lactate Dehydrogenase 1136 U/L (313-618)
[2021-02-08 12:38] LABS: D Dimer 2.81 ug/mL (<0.48)
[2021-02-08] MEDS: SODIUM CHLORIDE 0.9% IV 1,000 ML 50 ML IV CONT (12:59)
[2021-02-08 15:19] LABS: Reflex Lactic Acid Yes or No Add Lactic
[2021-02-08 16:15] LABS: Lactic Acid 1.5 mmol/L (0.7-2.1)
--- NOTE | 2021-02-08 20:11 | PC.NURSE ---
02/08/21 1950 Son Obed called stating that he and his step mother would like Dakotah transferred to [facility] because they have friends and family there. Cesilia De La Rosa RN spoke with patient and he states he does not wish to transfer at this time and if he makes that decision he will let his family know and to please tell them to call him with any further concerns. Spoke with Obed who verbally disagreed and stepmother in the background stated I have a text that says differently . Explained the patient is alert and oriented and able to make his own decisions and we will follow his wishes. Son's phone call transferred into pt room.
[2021-02-08] MEDS: BUDESONIDE RESPULE NEB 0.5 MG/2 ML AMP INHALATION (20:37)
[2021-02-08] MEDS: REMDESIVIR 100 MG/NS 250 ML 100 MG/250 ML BAG 250 MG IVPB (21:28)
[2021-02-09] VITALS (35 sets, daily range): BP systolic 110–130; BP diastolic 58–78; PULSE 78–108; RESP 16–40; TEMP 37.1–38.2; O2SAT 90–100
[2021-02-09 01:17] LABS: SARS-CoV-2 RNA PCR Negative
[2021-02-09] MEDS: ACETAMINOPHEN 325 MG TABLET 650 MG PO ×4 (03:15→20:44)
[2021-02-09] MEDS: ALBUTEROL SULFATE NEB 2.5 MG/0.5 ML INH 5 MG INHALATION ×6 (03:58→23:45)
[2021-02-09] MEDS: IPRATROPIUM BR 0.02% INH SOLN 0.5 MG/2.5 ML VIAL INHALATION ×6 (03:59→23:45)
[2021-02-09] MEDS: BENZONATATE 100 MG CAPSULE PO ×2 (06:03→15:55)
[2021-02-09 06:21] LABS: Alanine Aminotransferase 80 U/L (4-50); Estimated CRCL calculation 147 ml/min; Estimated Glomerular Filt Rate > 60
[2021-02-09 06:29] LABS: CRP 8.6 mg/dL (<1.0); Lactate Dehydrogenase 1145 U/L (313-618)
[2021-02-09 06:44] LABS: D Dimer 3.91 ug/mL (<0.48)
[2021-02-09 07:52] LABS: Alanine Aminotransferase 84 U/L (4-50); Albumin Level 2.9 g/dL (3.5-5.1); Alkaline Phosphatase 117 U/L (38-126); Anion Gap 4 mmol/L (8-16); Aspartate Amino Transferase 118 U/L (17-59); Bilirubin,Total 0.5 mg/dL (0.2-1.3); Blood Urea Nitrogen 5 mg/dL (9-20); Carbon Dioxide 29 mmol/L (22-30); Chloride 96 mmol/L (98-107); Estimated CRCL calculation 169 ml/min; Estimated Glomerular Filt Rate > 60; Glucose 101 mg/dL (75-110); Magnesium 1.7 mg/dL (1.6-2.3); Phosphorus 3.1 mg/dL (2.5-4.5); Potassium 3.1 mmol/L (3.4-5.0); Sodium 129 mmol/L (137-145)
[2021-02-09 08:04] LABS: Basophils Percent Auto 0.1 % (0.2-1.2); Eosinophils Absolute Auto 0.2 K/mm3 (0-0.3); Eosinophils Percent Auto 1.8 % (0-4.4); Hematocrit 30.1 % (42.0-52.0); Hemoglobin 10.7 g/dL (14.0-18.0); Immature Granulocyte Absolute 0.12 K/mm3 (0.00-0.031); Immature Granulocyte Percent A 1.3 % (0-0.5); Lymphocytes Absolute Auto 2.09 K/mm3 (0.9-3.2); Lymphocytes Percent Auto 23.3 % (18.3-44.2); Mean Corpuscular HGB Conc 35.5 g/dl (32-36); Mean Corpuscular Hemoglobin 30.5 pg (26-34); Mean Corpuscular Volume 85.8 fl (80-100); Monocytes Absolute Auto 0.2 K/mm3 (0.1-0.6); Neutrophils Absolute Auto 6.4 K/mm3 (1.3-6.7); Neutrophils Percent Auto 71.5 % (45.5-73.1); Platelet Count Result 223 k/mm3 (150-375); Red Blood Count 3.51 M/mm3 (4.6-6.20); Red Cell Distribution Width 12.6 % (11.5-14.5)
[2021-02-09] MEDS: BUDESONIDE RESPULE NEB 0.5 MG/2 ML AMP INHALATION ×2 (08:05→19:50)
[2021-02-09 08:14] LABS: Lactic Acid Reflex 0.9 mmol/L (0.7-2.1)
--- NOTE | 2021-02-09 08:20 | WPDINTPN ---
Progress Note: A&P Assessment and Plan (1) Acute respiratory failure with hypoxia: Code(s): J96.01 - Acute respiratory failure with hypoxia Status: Acute Assessment and Plan: Acute respiratory failure secondary to pneumonia, possible COVID-19 but SARS-CoV-2 PCR has been negative x2 -repeat SARS-CoV-2 PCR negative for the 3rd time -patient is feeling better on Airvo 45% FiO2 and 40 L flow rate -continue albuterol, Atrovent nebs, add pulmicort -continue vancomycin and Zosyn (initiated on 02/08/2021) for coverage of MRSA and Pseudomonas - CTA chest and CXR and ABGs reviewed (2) Community acquired pneumonia: Qualifiers: Laterality: unspecified laterality Qualified Code(s): J18.9 - Pneumonia, unspecified organism Code(s): J18.9 - Pneumonia, unspecified organism Status: Acute Assessment and Plan: Bacterial versus viral pneumonia -continue antibiotics and bronchodilators the above -will have Infectious Disease evaluate the patient (3) Severe sepsis: Code(s): A41.9 - Sepsis, unspecified organism; R65.20 - Severe sepsis without septic shock Status: Acute Assessment and Plan: Patient presented with leukocytosis, lactic acidosis, tachypnea, tachycardia -likely source is the lungs -blood cultures negative x2 -sputum cultures pending -on vancomycin and Zosyn as above -will have infectious disease following the patient -lactic acid has resolved (4) Hyponatremia: Code(s): E87.1 - Hypo-osmolality and hyponatremia Status: Acute Assessment and Plan: Patient with polydipsia, polyuria hypo natremia, could be related to SIADH due to severe pneumonia/infection -check urine lytes, urine and serum osmolality -nephrology has been consulted (5) Suspected 2019 novel coronavirus infection: Code(s): Z20.822 - Contact with and (suspected) exposure to COVID-19 Status: Acute Assessment and Plan: SARS-CoV-2 PCR PCR negative x2 -COVID-19 swab negative for the 3rd time --elevated inflammatory markers, continue to trend, - continue droplet, airborne and contact isolation/precautions (6) Tobacco dependence: Code(s): F17.200 - Nicotine dependence, unspecified, uncomplicated Status: Acute Assessment and Plan: Patient stop smoking about 12 days ago prior to which he was smoking 1 packet for 25 years -he is going to quit smoking (7) Dietary counseling and surveillance: Code(s): Z71.3 - Dietary counseling and surveillance Status: Acute Assessment and Plan: Continue heart healthy diet (8) DVT prophylaxis: Code(s): Z29.9 - Encounter for prophylactic measures, unspecified Status: Acute Assessment and Plan: Lovenox Additional Plan Discussed with patient updated with his condition and plan of care. Have answered all his questions, he is aware that he will be going on the Airvo. He stated he does not like the BiPAP. Also discussed with him if his oxygen requirements increased is respiratory rate increases he might need intubation to which he is agreeable Code status: Full code Critical care time spent: 34 minutes This dictation may have been done utilizing a voice recognition system. Attempts have been made to correct errors. However, there may be uncorrected grammatical, spelling, and recognition errors present. Due to a high probability of clinically significant, life threatening deterioration, the patient required my highest level of preparedness to intervene emergently and I personally spent this critical care time directly and personally managing the patient. This critical care time included obtaining a history; examining the patient; pulse oximetry; ordering and review of studies; arranging urgent treatment with development of a management plan; evaluation of patient's response to treatment; frequent reassessment; and discussions with other providers. It was exclusive of separately billable proce
[2021-02-09] MEDS: DEXAMETHASONE SOD PHOS INJ 4 MG/ML VIAL 6 MG IV PUSH (08:38)
[2021-02-09] MEDS: ENOXAPARIN 40 MG/0.4 ML SYRINGE SUB-Q (08:38)
[2021-02-09] MEDS: NICOTINE (*PBKC) 21 MG PATCH 1 PATCH TRANSDERM (08:38)
[2021-02-09] MEDS: POTASSIUM CHLORIDE 20 MEQ TABLET 40 MEQ PO (08:47)
[2021-02-09 10:23] LABS: Hemoglobin A1C 5.5 % (<5.7)
[2021-02-09 10:57] LABS: Creatinine Urine 33.5 mg/dL
[2021-02-09 11:05] LABS: Potassium Urine Random 2.8 meq/L; Sodium Urine Random 60 meq/L
[2021-02-09] MEDS: ALPRAZolam (*CRX) 0.5 MG TABLET PO ×2 (11:35→20:45)
--- NOTE | 2021-02-09 12:06 | PC.NURSE ---
Updated spouse via telephone on patient condition and plan of care today.
--- NOTE | 2021-02-09 13:13 | PM.CNNEP ---
Assessment and Plan Assessment and plan (1) Hyponatremia: Code(s): E87.1 - Hypo-osmolality and hyponatremia Status: Acute Assessment and Plan: etiology possibly SIADH from significant lung disease? no medication culprits... follow-up on urine testing and osmolality for completeness, check TSH, cortisol, and SPEP/UPEP follow trend of sodium (2) Acute respiratory failure with hypoxia: Code(s): J96.01 - Acute respiratory failure with hypoxia Status: Acute Assessment and Plan: due to bacterial versus viral pneumonia on antibiotic therapy follow cultures supplemental oxygen (3) Sepsis: Code(s): A41.9 - Sepsis, unspecified organism Status: Acute Assessment and Plan: as noted by his presentation with leukocytosis, lactic acidosis, tachypnea, and tachycardia follow cultures on broad spectrum antibiotics follow hemodynamics (BP stable at this time) (4) Pneumonia: Code(s): J18.9 - Pneumonia, unspecified organism Status: Acute Assessment and Plan: bacterial versus viral? Infectious Disease consulted follow-up on culture date (5) Suspected 2019 novel coronavirus infection: Code(s): Z20.822 - Contact with and (suspected) exposure to COVID-19 Status: Acute Assessment and Plan: COVD-19 testing negative x 2 follow inflammatory markes remains on isolation Will continue to follow. History of Present Illness Reason for Consult Consult date: 02/10/21 Reason for consult: hyponatremia Chief Complaint Chief complaint: pneumonia,hypoxia History of Present Illness Narrative: The patient is a 45 year old male with a past medical history as outlined below who presented to [facility] ER with worsening shortness of breath. The patient initially presented to [facility] ER on 02/04/2021 with the same symptoms and at that time, evaluation was significant for a negative COVID-19 PCR but his chest x-ray did show evidence of pneumonia. He was discharged home on a course of azithromycin, albuterol inhaler, and Tessalon Perles. Unfortunately, he presented back to the hospital ER again on 02/06/2021 with worsening shortness of breath. Associated with the worsening shortness of breath were chills and rigors along with generalized malaise fatigue and poor appetite. He denied any nausea, vomiting, diarrhea, abdominal pain, chest pain, or lower extremity edema. Workup and evaluation emergency room demonstrated the patient to be hemodynamically stable but he was found to be quite hypoxic with oxygen saturations of 80% on room air along with tachycardia and tachypnea. Routine blood test demonstrated an elevated white blood cell count by his CBC and a low sodium level by his chemistry. His chest x-ray was suggestive of pneumonia but a CT scan of his chest with contrast demonstrated no central pulmonary emboli but extensive bilateral perihilar ground-glass opacities more likely infection and edema given his normal heart size. Given these findings, appropriate cultures were obtained, he was started on IV ceftriaxone and azithromycin, and placed on supplemental oxygen with admission to the hospital for further evaluation and treatment. Since his admission, his respiratory status deteriorated to the point where he was requiring 10 L of oxygen via nasal cannula. BiPAP was attempted but he was unable to tolerate it any more than 4 hours. He was eventually transferred to the intensive care unit for closer monitoring of his respiratory status. Although his COVID-19 testing has been negative x2, he is being treated as if he was COVID-19 positive with respiratory isolation and high-dose oxygen support. I believe at 1 point he was started on remdesivir and dexamethasone but this has since been discontinued. He remains on IV antibiotic therapy to the presumed pneumonia. Renal consultation was requested due to the a for mentioned hypo
[2021-02-09] MEDS: SODIUM CHLORIDE 0.9% IV 1,000 ML 50 ML IV CONT (14:57)
[2021-02-09] MEDS: ONDANSETRON INJ 4 MG/2 ML VIAL IV PUSH (17:29)
--- NOTE | 2021-02-09 20:25 | PC.NURSE ---
Spoke with Dr. Gardner regarding excessive coughing related to Covid. Okay to order Guaifenesin with codeine. Continue to monitor.
[2021-02-09] MEDS: REMDESIVIR 100 MG/NS 250 ML 100 MG/250 ML BAG 250 MG IVPB (20:44)
[2021-02-09] MEDS: guaiFENesin/CODEINE (*CRX) 200/20 MG 10 ML SYRUP PO (20:44)
[2021-02-10] VITALS (32 sets, daily range): BP systolic 101–132; BP diastolic 65–88; PULSE 82–112; RESP 16–37; TEMP 37.1–39.4; O2SAT 92–100
[2021-02-10] MEDS: guaiFENesin/CODEINE (*CRX) 200/20 MG 10 ML SYRUP PO ×2 (00:03→04:18)
[2021-02-10] MEDS: BENZONATATE 100 MG CAPSULE PO ×2 (02:03→13:42)
[2021-02-10] MEDS: ACETAMINOPHEN 325 MG TABLET 650 MG PO ×3 (02:03→19:39)
[2021-02-10 02:28] LABS: Hematocrit 34.8 % (42.0-52.0); Hemoglobin 11.9 g/dL (14.0-18.0); Mean Corpuscular HGB Conc 34.2 g/dl (32-36); Mean Corpuscular Hemoglobin 29.8 pg (26-34); Mean Platelet Volume 8.9 fl (7.4-10.4); Platelet Count Result 260 k/mm3 (150-375); Red Cell Distribution Width 12.6 % (11.5-14.5); White Blood Count 9.9 K/mm3 (4.5-10.0)
[2021-02-10 02:38] LABS: Lactic Acid Reflex 1.3 mmol/L (0.7-2.1)
[2021-02-10 02:39] LABS: Alanine Aminotransferase 121 U/L (4-50); Albumin Level 3.1 g/dL (3.5-5.1); Alkaline Phosphatase 141 U/L (38-126); Anion Gap 3 mmol/L (8-16); Aspartate Amino Transferase 143 U/L (17-59); Bilirubin,Total 0.7 mg/dL (0.2-1.3); Blood Urea Nitrogen 5 mg/dL (9-20); Calcium 8.1 mg/dL (8.4-10.2); Carbon Dioxide 33 mmol/L (22-30); Chloride 92 mmol/L (98-107); Estimated CRCL calculation 147 ml/min; Estimated Glomerular Filt Rate > 60; Glucose 94 mg/dL (75-110); Magnesium 1.7 mg/dL (1.6-2.3); Phosphorus 3.2 mg/dL (2.5-4.5); Potassium 3.4 mmol/L (3.4-5.0); Sodium 128 mmol/L (137-145)
[2021-02-10 03:36] LABS: Vancomycin Trough < 5.0 ug/mL (10.0-20.0)
[2021-02-10] MEDS: ALBUTEROL SULFATE NEB 2.5 MG/0.5 ML INH 5 MG INHALATION ×6 (04:23→23:53)
[2021-02-10] MEDS: IPRATROPIUM BR 0.02% INH SOLN 0.5 MG/2.5 ML VIAL INHALATION ×6 (04:24→23:53)
--- NOTE | 2021-02-10 06:47 | PC.NURSE ---
Patient intermittently confused this morning. Patient had ripped all IV's out and took off oxygen walking around bed. Patient reoriented. O2 placed back on, bed alarm on, 20g to RAC inserted. Guaifenesin and Xanax Dc'd.
[2021-02-10] MEDS: COSYNTROPIN 0.25 MG/ML VIAL IV PUSH (07:47)
[2021-02-10] MEDS: BUDESONIDE RESPULE NEB 0.5 MG/2 ML AMP INHALATION ×2 (07:50→19:54)
[2021-02-10 07:55] LABS: Alveolar/Arterial O2 Gradient 235.6 mmHg; Base Excess ABG 4.7 mEq/l (+/-2.0); Fractional Inspired Oxygen 50 %; Oxygen Content ABG 15.8 %vol (16.0-22.0); Oxygen Saturation ABG 96.7 % (95.0-100.0); Oxyhemoglobin 94.8 % THb (90.0-100.0); PCO2 ABG 36.8 mmHg (35.0-45.0); PO2 ABG 79.5 mmHg (80.0-100.0); PO2 FiO2 Ratio Arterial Blood 1.59 %; Total Hemoglobin 11.8 g/dL (12.0-18.0); pH ABG 7.499 (7.350-7.450)
[2021-02-10 07:56] LABS: Device HIGH FLOW THERAPY; Modified Allen's Test Pass; Site Drawn LEFT RADIAL
[2021-02-10] MEDS: DEXAMETHASONE SOD PHOS INJ 4 MG/ML VIAL 6 MG IV PUSH (08:26)
[2021-02-10] MEDS: POTASSIUM CHLORIDE 20 MEQ TABLET 40 MEQ PO (08:26)
[2021-02-10] MEDS: ENOXAPARIN 40 MG/0.4 ML SYRINGE SUB-Q (08:26)
[2021-02-10] MEDS: NICOTINE (*PBKC) 21 MG PATCH 1 PATCH TRANSDERM (08:26)
--- NOTE | 2021-02-10 08:31 | WPDINTPN ---
Progress Note: A&P Assessment and Plan (1) Acute respiratory failure with hypoxia: Code(s): J96.01 - Acute respiratory failure with hypoxia Status: Acute Assessment and Plan: Acute respiratory failure secondary to pneumonia, possible COVID-19 but SARS-CoV-2 PCR has been negative x2 -repeat SARS-CoV-2 PCR negative x3 -patient is feeling better on Airvo 50 % FiO2 and 45 L flow rate -continue albuterol, Atrovent nebs, add pulmicort -continue vancomycin and Zosyn (initiated on 02/08/2021) for coverage of MRSA and Pseudomonas -chest x-ray worse this morning with increased bilateral infiltrates (2) Community acquired pneumonia: Qualifiers: Laterality: unspecified laterality Qualified Code(s): J18.9 - Pneumonia, unspecified organism Code(s): J18.9 - Pneumonia, unspecified organism Status: Acute Assessment and Plan: Bacterial versus viral pneumonia -continue antibiotics and bronchodilators the above -will have Infectious Disease evaluate the patient (3) Severe sepsis: Code(s): A41.9 - Sepsis, unspecified organism; R65.20 - Severe sepsis without septic shock Status: Acute Assessment and Plan: Patient presented with leukocytosis, lactic acidosis, tachypnea, tachycardia -likely source is the lungs -leukocytosis normalized -blood cultures negative x2 -sputum cultures inconclusive as the sputum sample was contaminated -on vancomycin and Zosyn as above -will have infectious disease following the patient -lactic acid has resolved (4) Hyponatremia: Code(s): E87.1 - Hypo-osmolality and hyponatremia Status: Acute Assessment and Plan: Patient with polydipsia, polyuria hypo natremia, could be related to SIADH due to severe pneumonia/infection, possible psychogenic polydipsia. Patient has been drinking fluids for a very long time -appreciate Nephrology evaluation recommendation -discontinue all IV fluids, patient has been asked to restrict his fluid intake -will continue to monitor (5) Suspected 2019 novel coronavirus infection: Code(s): Z20.822 - Contact with and (suspected) exposure to COVID-19 Status: Acute Assessment and Plan: SARS-CoV-2 PCR PCR negative x2 -COVID-19 swab negative for the 3rd time --elevated inflammatory markers, continue to trend, - continue droplet, airborne and contact isolation/precautions (6) Tobacco dependence: Code(s): F17.200 - Nicotine dependence, unspecified, uncomplicated Status: Acute Assessment and Plan: Patient stop smoking about 12 days ago prior to which he was smoking 1 packet for 25 years -he is going to quit smoking (7) Dietary counseling and surveillance: Code(s): Z71.3 - Dietary counseling and surveillance Status: Acute Assessment and Plan: Continue heart healthy diet (8) DVT prophylaxis: Code(s): Z29.9 - Encounter for prophylactic measures, unspecified Status: Acute Assessment and Plan: Lovenox Additional Plan Discussed with patient updated with his condition and plan of care. I answered all questions, patient states he feels much better was asking when he can leave, I did update him regarding his chest x-ray being was this morning and that he has been requiring increasing oxygen levels. Also that infectious Disease is going to follow him. Code status: Full code Critical care time spent: 35 minutes This dictation may have been done utilizing a voice recognition system. Attempts have been made to correct errors. However, there may be uncorrected grammatical, spelling, and recognition errors present. Due to a high probability of clinically significant, life threatening deterioration, the patient required my highest level of preparedness to intervene emergently and I personally spent this critical care time directly and personally managing the patient. This critical care time included obtaining a history; examining the patient; pulse oxi
--- NOTE | 2021-02-10 08:32 | PM.PNNEP ---
Progress Note: A&P Assessment and Plan (1) Hyponatremia: Code(s): E87.1 - Hypo-osmolality and hyponatremia Status: Acute Assessment and Plan: he has hyponatremia. TSH is okay. cortisol level is a little low so will check a Cortrosyn stim test. Since he is drinking so much water and his sodium is on the low side I suspect that much of this is just excessive water drinking. He says he is been drinking this much fluid for the last 8 years. We do not have any labs from before to see whether not his sodium has been like this for 8 years or whether it has been normal. Normal kidneys usually can tolerate upto 16L of fluid per day and so I suspect that his serum sodium may be normal at home when he is feeling fine but now with the pulmonary disease he has a small amount of SIADH leading to lower ability to clear free water. I asked him to cut back to 3 bottles per day instead of 4. IV fluids have been discontinued. (2) Acute respiratory failure with hypoxia: Code(s): J96.01 - Acute respiratory failure with hypoxia Status: Acute Assessment and Plan: due to bacterial versus viral pneumonia on antibiotic therapy follow cultures supplemental oxygen (3) Sepsis: Code(s): A41.9 - Sepsis, unspecified organism Status: Acute Assessment and Plan: as noted by his presentation with leukocytosis, lactic acidosis, tachypnea, and tachycardia follow cultures on broad spectrum antibiotics follow hemodynamics (BP stable at this time) (4) Pneumonia: Code(s): J18.9 - Pneumonia, unspecified organism Status: Acute Assessment and Plan: bacterial versus viral? Infectious Disease consulted follow-up on culture date (5) Suspected 2019 novel coronavirus infection: Code(s): Z20.822 - Contact with and (suspected) exposure to COVID-19 Status: Acute Assessment and Plan: COVD-19 testing negative x 2 follow inflammatory markes remains on isolation Subjective Date/time seen: 02/10/21 08:32 Interval history: Patient feels about the same today. Still has cough and some shortness of breath. On high-flow nasal cannula. He drinks a lot of water. He brings his own [place] water in and drinks 4 of those bottles per day which look like there about 1L. He drinks other water as well along with his tray. He says he has been doing this for about 8 years. He is not specially thirsty but he just enjoys the water. Review of Systems Cardiovascular: Cardiovascular: Reports no additional cardiovascular complaints Respiratory: Respiratory: Reports no additional respiratory complaints Gastrointestinal: Gastrointestinal: Reports no additional gastrointestinal complaints Genitourinary: Genitourinary: Reports no additional male genitourinary complaints Exam Narrative: Exam Narrative: WDWN in NAD skin no rash head ncat lungs clear cor reg no rub abd BS+ nontender and soft ext no edema. Objective Data Vital Signs Vital Signs: Vital Signs - 24 hr 02/09/21 10:00 02/09/21 12:00 02/09/21 14:00 Temperature 37.7 C H 37.7 C H Pulse Rate 97 96 93 Respiratory Rate 32 H 40 H 32 H Blood Pressure 114/63 130/60 123/75 Pulse Oximetry 96 95 94 02/09/21 14:15 02/09/21 15:59 02/09/21 16:00 Temperature 38.2 C H 38.2 C H Pulse Rate 82 90 Respiratory Rate 20 19 Blood Pressure 127/78 Pulse Oximetry 95 02/09/21 16:59 02/09/21 17:07 02/09/21 17:14 Temperature 37.3 C Pulse Rate 92 97 Respiratory Rate 18 24 H Blood Pressure Pulse Oximetry 02/09/21 18:00 02/09/21 19:50 02/09/21 19:53 Temperature Pulse Rate 99 90 83 Respiratory Rate 26 H 30 H 33 H Blood Pressure 112/66 Pulse Oximetry 94 96 02/09/21 20:00 02/09/21 20:04 02/09/21 21:02 Temperature 37.1 C Pulse Rate 97 98 96 Respiratory Rate 24 H 23 H 26 H Blood Pressure 110/73 Pulse Oximetry 96 92 02/09/21 21:34 02/09/21 22:00 01/23
[2021-02-10 09:13] LABS: Hepatitis B Surface Antigen Negative (Negative)
[2021-02-10 09:19] LABS: HAV RESULT Negative (Negative); Hepatitis B Core IgM Result Negative (Negative)
[2021-02-10 09:30] LABS: Hepatitis C Virus Antibody Negative (Negative)
--- NOTE | 2021-02-10 12:42 | WPDINFPN2 ---
Progress Note: A&P Assessment and Plan (1) Pneumonia: Code(s): J18.9 - Pneumonia, unspecified organism Status: Acute Assessment and Plan: Lung infiltrates, pneumonia likely REC Kirsten and Demar, further studies see orders Subjective Date/time seen: 02/10/21 12:42 Objective Data Vital Signs Vital Signs: Vital Signs - 24 hr 02/09/21 14:00 02/09/21 14:15 02/09/21 15:59 Temperature 38.2 C H Pulse Rate 93 82 Respiratory Rate 32 H 20 Blood Pressure 123/75 Pulse Oximetry 94 02/09/21 16:00 02/09/21 16:59 02/09/21 17:07 Temperature 38.2 C H 37.3 C Pulse Rate 90 92 Respiratory Rate 19 18 Blood Pressure 127/78 Pulse Oximetry 95 02/09/21 17:14 02/09/21 18:00 02/09/21 19:50 Temperature Pulse Rate 97 99 90 Respiratory Rate 24 H 26 H 30 H Blood Pressure 112/66 Pulse Oximetry 94 02/09/21 19:53 02/09/21 20:00 02/09/21 20:04 Temperature 37.1 C Pulse Rate 83 97 98 Respiratory Rate 33 H 24 H 23 H Blood Pressure 110/73 Pulse Oximetry 96 96 02/09/21 21:02 02/09/21 21:34 02/09/21 22:00 Temperature Pulse Rate 96 84 94 Respiratory Rate 26 H 29 H 21 H Blood Pressure 116/58 L Pulse Oximetry 92 93 90 02/09/21 23:18 02/09/21 23:20 02/09/21 23:45 Temperature Pulse Rate 91 78 83 Respiratory Rate 25 H 18 28 H Blood Pressure Pulse Oximetry 90 92 02/09/21 23:49 02/09/21 23:56 02/10/21 00:00 Temperature 37.2 C Pulse Rate 86 87 105 H Respiratory Rate 27 H 16 19 Blood Pressure 103/76 Pulse Oximetry 100 97 02/10/21 01:30 02/10/21 02:00 02/10/21 02:03 Temperature 39.4 C H 39.4 C H Pulse Rate 103 H 105 H Respiratory Rate 30 H 35 H Blood Pressure 132/81 Pulse Oximetry 98 97 02/10/21 03:07 02/10/21 04:00 02/10/21 04:24 Temperature 37.8 C H Pulse Rate 112 H 101 H 93 Respiratory Rate 28 H 35 H 33 H Blood Pressure 115/69 Pulse Oximetry 95 95 02/10/21 04:32 02/10/21 06:00 02/10/21 06:34 Temperature 38.4 C H Pulse Rate 95 84 Respiratory Rate 29 H 28 H Blood Pressure 110/69 Pulse Oximetry 92 02/10/21 07:34 02/10/21 07:50 02/10/21 08:00 Temperature 37.6 C H 37.5 C Pulse Rate 91 94 Respiratory Rate 20 24 H Blood Pressure 101/65 Pulse Oximetry 98 98 02/10/21 08:02 02/10/21 10:00 02/10/21 11:47 Temperature Pulse Rate 98 87 89 Respiratory Rate 20 27 H 16 Blood Pressure 105/72 Pulse Oximetry 94 02/10/21 11:58 02/10/21 12:00 Temperature 37.1 C Pulse Rate 93 97 Respiratory Rate 16 21 H Blood Pressure 124/70 Pulse Oximetry 98 Intake/Output Intake/Output: Intake & Output 02/07/21 02/08/21 02/09/21 02/10/21 23:59 23:59 23:59 23:59 Intake Total 5773 8012 76661 3140 Output Total 4353 7008 50857 6200 Balance [phone] -[phone] -[id number] Meds/Results Medications: Active Medications Generic Name Dose Route Start Last Admin Trade Name Freq PRN Reason Stop Dose Admin Acetaminophen 650 mg 02/06/21 07:21 02/10/21 06:34 Acetaminophen 325 Mg Tablet PO 650 mg Q4H PRN Administration Mild Pain (1-3) or Fever Albuterol 2 puff 02/06/21 09:18 Albuterol Sulfate (*Sp) Aerosol 1 Puff INHALATION Q4-6H PRN shortness of breath or wheezing Albuterol 5 mg 02/06/21 12:00 02/10/21 11:46 Albuterol Sulfate Neb 2.5 Mg/0.5 Ml Inh INHALATION 5 mg Q4HRT JOHN Administration Benzonatate 100 mg 02/09/21 15:04 02/10/21 02:03 Benzonatate 100 Mg Capsule PO 100 mg TID PRN Administration cough Budesonide 0.5 mg 02/08/21 20:00 02/10/21 07:50 Budesonide Respule Neb 0.5 Mg/2 Ml Amp INHALATION 0.5 mg Q12HRT JOHN Administration Dexamethasone Sodium Phosphate 6 mg 02/07/21 09:00 02/10/21 08:26 Dexamethasone Sod Phos Inj 4 Mg/Ml Vial IV PUSH 02/16/21 09:01 6 mg DAILY JOHN Administration Enoxaparin Sodium 40 mg 02/09/21 09:00 02/10/21 08:26 Enoxaparin 40 Mg/0.4 Ml Syringe SUB-Q 40 mg DAILY JOHN Administration Pipe
[2021-02-10 13:51] LABS: Influenza Control Positive
[2021-02-10] MEDS: CALCIUM CARBONATE (TUMS) 500 MG (200 MG ELEMENTAL) PO ×2 (15:21→19:39)
--- NOTE | 2021-02-10 15:23 | PM.IMPN ---
Progress Note: A&P Assessment and Plan (1) Acute respiratory failure with hypoxia: Code(s): J96.01 - Acute respiratory failure with hypoxia Status: Acute (2) Suspected 2019 novel coronavirus infection: Code(s): Z20.822 - Contact with and (suspected) exposure to COVID-19 Status: Acute (3) Tobacco dependence: Code(s): F17.200 - Nicotine dependence, unspecified, uncomplicated Status: Acute (4) Community acquired pneumonia: Qualifiers: Laterality: unspecified laterality Qualified Code(s): J18.9 - Pneumonia, unspecified organism Code(s): J18.9 - Pneumonia, unspecified organism Status: Acute (5) Hyponatremia: Code(s): E87.1 - Hypo-osmolality and hyponatremia Status: Acute Subjective Date/time seen: 02/10/21 15:23 I feel well Review of Systems Review of Systems: Narrative: Patient states that he feels well. Constitutional: Comments: No fevers no rigors no chills Cardiovascular: Comments: No chest pain Respiratory: Comments: Cough productive Gastrointestinal: Comments: No nausea no vomiting no abdominal pain no diarrhea Musculoskeletal: Comments: No joint pain or muscle pain Integumentary/Breasts: Comments: No rashes Neurologic: Comments: No sensorimotor deficit Exam Narrative: Exam Narrative: Patient is standing by the side of the bed high-flow nasal cannula Airvo on Const: General: comfortable, no acute distress, well developed, alert, awake and ill appearing acutely Nutritional Appearance: average body habitus Orientation/consciousness: patient oriented x3 HENMT: Head: normal to inspection, normocephalic and atraumatic Ears: hearing grossly normal bilaterally Face and sinus: normal facial exam Eyes: General: appearance normal, both eyes and all related structures Pupils: Equal, round and reactive pupils present EOM: EOMs intact bilaterally Neck: Neck: full ROM, no lymphadenopathy and no JVD Thyroid: thyroid normal Lymphatic: no lymphadenopathy noted Resp: Effort & Inspection: normal respiratory effort and able to speak in complete sentences Auscultation: clear to auscultation bilaterally Cardio: Jugular venous distension: no JVD Rate: regular rate Rhythm: regular rhythm Heart sounds: S1 normal heart sound present and S2 normal heart sound present GI: GI Palp: Yes Soft to palpation and Yes No hepatosplenomegaly present : General: Yes deferred Skin: Rashes: no rashes Wounds: no wounds Neuro: General: patient oriented x3 and CN's II-XI intact bilaterally Cranial nerves: Yes CN's II-XII intact bilaterally and Yes Equal, round and reactive pupils present Cognition (Neuro): normal cognition Speech: normal speech Gait exam (Neuro): Normal gait present Motor exam (neuro): 5/5 motor strength present throughout Extrem: General: normal to inspection, full ROM, no joint enlargement and no pedal edema Objective Data Vital Signs Vital Signs: Vital Signs - 24 hr 02/09/21 15:59 02/09/21 16:00 02/09/21 16:59 Temperature 100.7 F H 100.7 F H 99.2 F Pulse Rate 90 Respiratory Rate 19 Blood Pressure 127/78 Pulse Oximetry 95 02/09/21 17:07 02/09/21 17:14 02/09/21 18:00 Temperature Pulse Rate 92 97 99 Respiratory Rate 18 24 H 26 H Blood Pressure 112/66 Pulse Oximetry 94 02/09/21 19:50 02/09/21 19:53 02/09/21 20:00 Temperature 98.8 F Pulse Rate 90 83 97 Respiratory Rate 30 H 33 H 24 H Blood Pressure 110/73 Pulse Oximetry 96 96 02/09/21 20:04 02/09/21 21:02 02/09/21 21:34 Temperature Pulse Rate 98 96 84 Respiratory Rate 23 H 26 H 29 H Blood Pressure Pulse Oximetry 92 93 02/09/21 22:00 02/09/21 23:18 02/09/21 23:20 Temperature Pulse Rate 94 91 78 Respiratory Rate 21 H 25 H 18 Blood Pressure 116/58 L Pulse Oximetry 90 90 92 02/09/21 23:45 02/09/21 23:49 02/09/21 23:56 Temperature Pulse Rate 83 86 87 Respiratory Rate 28 H 27 H 16 Blood Pressure Pulse
[2021-02-10] MEDS: PANTOPRAZOLE SODIUM IV 40 MG VIAL IV PUSH (15:53)
[2021-02-10 16:07] LABS: HIV 1/2 Ab P24 Ag Result Reactive (Negative)
[2021-02-10 16:12] LABS: HIV 1/2 Ab P24 Ag 3.04
[2021-02-10 16:13] LABS: HIVc Retest 1 3.04
[2021-02-10 16:14] LABS: HIVc Retest 2 3.04
--- NOTE | 2021-02-10 17:30 | CONS_ITS ---
DATE OF CONSULTATION: 02/10/2021 REASON FOR CONSULTATION: Pneumonia. HISTORY OF PRESENT ILLNESS: A 45-year-old male had pneumonia about 10 years ago. He was never told the underlying etiology for his infection nor the responsible organism. He remembers full recovery without sequelae. He has not been at this hospital in recent years. If ever, and presented to the emergency room on February 04, 3 days of fever, cough, and sore throat. He has been on variety of antimicrobials while here, and consultation requested. He is on high-flow O2. He has not required mechanical ventilation. He has not required any surgical intervention. He has a cough, which is minimally productive. No chest pain. He has dyspnea on exertion, including with speaking. He was on antibiotic of unknown identity sometime in the last month for dental infection, perhaps amoxicillin or 1 of its derivatives. The patient works for a [employer] company. Has no exposure to noxious chemicals. He enjoys motorcycle riding, also hunting and fishing, though has not done the latter so far this spring. He has had no household contacts. He has 3 dogs and a cat at home, all 4 more healthy. No close exposure to livestock nor wild animals. He has no previously lung disease except as above. He reports being exposed to tuberculosis when [place] in the past and reports every other year tuberculosis testing, which has always been negative. He reports a negative HIV test 8 years ago. PRESENT MEDICATIONS: List reviewed in full. Includes dexamethasone. HABITS: One pack per day smoker, active until the time of the present admission. No marijuana use, though his does smoke the same. He denies illicit drugs. He has had multiple tattoos, none recently. FAMILY HISTORY: Not pertinent to his present illness. SOCIAL HISTORY: . Works as above. No family at the bedside. PAST MEDICAL HISTORY: Denies any chronic medical illnesses or past surgeries except as above. REVIEW OF SYSTEMS: 14-point review otherwise negative. PHYSICAL EXAMINATION: GENERAL: Middle-aged male, who appears in mild respiratory distress, his actual age. VITAL SIGNS: Since arrival, he was afebrile on admission, T-max on the 15th, up to 39.2 and on the 17th up to 37.9. In the last 24 hours, T-max 39.4 early this morning, 124/70, 92, 21, 98% on HFNC. SKIN: Multiple tattoos, torso, arms, and legs. He has no rashes. Warm and dry. NODES: He has no cervical adenopathy. EENT: Conjunctivae are normal. There is no icterus. Pupils are equal, round, and reactive to light. Oropharynx, oral mucosa normal. Teeth in excellent repair. No sinus tenderness, erythema, edema. NECK: Without meningismus, mass, thyromegaly. There is no stridor. LUNGS: Mildly diminished breath sounds, vesicular, clear to percussion. No rales or wheezes. He has no egophony, no fremitus changes. CARDIAC: Distant S1, S2. No murmurs or gallops. He has no heaves. PMI is not displaced. ABDOMEN: Morbidly obese. No masses, tenderness, or organomegaly. He has normal bowel sounds. EXTREMITIES: No venous varicosities, calf tenderness, clubbing, cyanosis, edema. NEUROLOGIC: He is awake, alert, oriented, appropriate and cooperative. MUSCULOSKELETAL: Normal to inspection, all joints and no muscle tenderness. LABORATORY DATA: The sputum culture was rejected as inadequate. Blood cultures, no growth after 4 days incubation. No prior microbiology is available. White blood cell count on arrival 13.3, 23.0 on the 16th, now 9.9, hemoglobin 11.9, which is stable; platelets 260, differential minimal left shift. Blood gases 7.50 37, 80, 28, 97% on the supplemental O2 estimated at 50%. He has hyponatremia. BUN 5, creatinine 0.7, similar to previous values. His glucose
--- NOTE | 2021-02-10 18:30 | PM.IMPN ---
Progress Note: A&P Assessment and Plan (1) Community acquired pneumonia: Qualifiers: Laterality: unspecified laterality Qualified Code(s): J18.9 - Pneumonia, unspecified organism Code(s): J18.9 - Pneumonia, unspecified organism Status: Acute Assessment and Plan: Patient on broad-spectrum antibiotics however no resolution of infiltrates actually worsened infiltrates on repeat imaging. Patient with a positive screening for HIV Have discussed case with [facility] who is accepting the patient. Awaiting bed (2) Acute respiratory failure with hypoxia: Code(s): J96.01 - Acute respiratory failure with hypoxia Status: Acute Assessment and Plan: Continue on high-flow nasal cannula Airvo 50% saturating at 96% (3) Hyponatremia: Code(s): E87.1 - Hypo-osmolality and hyponatremia Status: Acute Assessment and Plan: Likely combination of is IADH and potomania Free water restriction Repeat BMP in the morning (4) Suspected 2019 novel coronavirus infection: Code(s): Z20.822 - Contact with and (suspected) exposure to COVID-19 Status: Acute Assessment and Plan: Patient has tested negative x2 as per our records (5) Tobacco dependence: Code(s): F17.200 - Nicotine dependence, unspecified, uncomplicated Status: Acute Assessment and Plan: Patient was a current everyday smoker at time of admission Patient is planning on quitting Nicotine patch Subjective Date/time seen: 02/10/21 18:30 Patient states that he feels fine Review of Systems Review of Systems: Narrative: Shortness of breath and cough Constitutional: Comments: No fever no chills no rigors Cardiovascular: Comments: No chest pain no PND no orthopnea Respiratory: Comments: Shortness of breath Gastrointestinal: Comments: No nausea no vomiting no diarrhea no constipation Musculoskeletal: Comments: Muscle aches or pains Integumentary/Breasts: Comments: No rashes Neurologic: Comments: No sensorimotor deficit Exam Narrative: Exam Narrative: Patient is sitting in bed acutely ill-looking Const: General: comfortable, no acute distress, well developed, alert and awake Nutritional Appearance: average body habitus Orientation/consciousness: patient oriented x3 HENMT: Head: normal to inspection, normocephalic and atraumatic Ears: hearing grossly normal bilaterally Face and sinus: normal facial exam Eyes: General: appearance normal, both eyes and all related structures Pupils: Equal, round and reactive pupils present EOM: EOMs intact bilaterally Neck: Neck: full ROM, no lymphadenopathy and no JVD Thyroid: thyroid normal Lymphatic: no lymphadenopathy noted Resp: Effort & Inspection: normal respiratory effort and able to speak in complete sentences Auscultation: clear to auscultation bilaterally Cardio: Jugular venous distension: no JVD Rate: regular rate Rhythm: regular rhythm Heart sounds: S1 normal heart sound present and S2 normal heart sound present GI: GI Palp: Yes Soft to palpation and Yes No hepatosplenomegaly present : General: Yes deferred Skin: Rashes: no rashes Wounds: no wounds Neuro: General: patient oriented x3 and CN's II-XI intact bilaterally Cranial nerves: Yes CN's II-XII intact bilaterally and Yes Equal, round and reactive pupils present Cognition (Neuro): normal cognition Speech: normal speech Gait exam (Neuro): Normal gait present Motor exam (neuro): 5/5 motor strength present throughout Extrem: General: normal to inspection, full ROM, no joint enlargement and no pedal edema Objective Data Vital Signs Vital Signs: Vital Signs - 24 hr 02/09/21 19:50 02/09/21 19:53 02/09/21 20:00 Temperature 98.8 F Pulse Rate 90 83 97 Respiratory Rate 30 H 33 H 24 H Blood Pressure 110/73 Pulse Oximetry 96 96 02/09/21 20:04 02/09/21 21:02 02/09/21 21:34 Temperature Pulse Rate 98 96 84 Respiratory Rate 23 H 26 H 29 H Blood
[2021-02-11] VITALS (34 sets, daily range): BP systolic 108–126; BP diastolic 61–75; PULSE 84–109; RESP 20–29; TEMP 37.2–38.5; O2SAT 92–99
[2021-02-11] MEDS: ACETAMINOPHEN 325 MG TABLET 650 MG PO ×6 (00:11→23:38)
[2021-02-11] MEDS: BENZONATATE 100 MG CAPSULE PO ×3 (00:11→19:29)
[2021-02-11] MEDS: ALBUTEROL SULFATE NEB 2.5 MG/0.5 ML INH 5 MG INHALATION ×5 (04:16→20:11)
[2021-02-11] MEDS: IPRATROPIUM BR 0.02% INH SOLN 0.5 MG/2.5 ML VIAL INHALATION ×5 (04:16→20:12)
[2021-02-11 04:58] LABS: Hemoglobin 10.8 g/dL (14.0-18.0); Mean Corpuscular HGB Conc 34.8 g/dl (32-36); Mean Corpuscular Hemoglobin 29.8 pg (26-34); Mean Corpuscular Volume 85.6 fl (80-100); Platelet Count Result 222 k/mm3 (150-375); Red Blood Count 3.62 M/mm3 (4.6-6.20); Red Cell Distribution Width 12.5 % (11.5-14.5); White Blood Count 8.6 K/mm3 (4.5-10.0)
[2021-02-11 05:20] LABS: Alanine Aminotransferase 93 U/L (4-50); Albumin Level 2.8 g/dL (3.5-5.1); Alkaline Phosphatase 124 U/L (38-126); Anion Gap 4 mmol/L (8-16); Aspartate Amino Transferase 98 U/L (17-59); Bilirubin,Total 0.6 mg/dL (0.2-1.3); Blood Urea Nitrogen 5 mg/dL (9-20); Calcium 7.7 mg/dL (8.4-10.2); Carbon Dioxide 30 mmol/L (22-30); Chloride 91 mmol/L (98-107); Estimated CRCL calculation 169 ml/min; Estimated Glomerular Filt Rate > 60; Glucose 117 mg/dL (75-110); Lactate Dehydrogenase 1078 U/L (313-618); Magnesium 1.6 mg/dL (1.6-2.3); Potassium 3.3 mmol/L (3.4-5.0); Sodium 125 mmol/L (137-145)
[2021-02-11 05:40] LABS: D Dimer 2.19 ug/mL (<0.48)
[2021-02-11 05:58] LABS: CRP 15.1 mg/dL (<1.0)
[2021-02-11] MEDS: NICOTINE (*PBKC) 21 MG PATCH 1 PATCH TRANSDERM (07:59)
[2021-02-11] MEDS: PANTOPRAZOLE SODIUM IV 40 MG VIAL IV PUSH (07:59)
[2021-02-11] MEDS: DEXAMETHASONE SOD PHOS INJ 4 MG/ML VIAL 6 MG IV PUSH (07:59)
[2021-02-11] MEDS: ENOXAPARIN 40 MG/0.4 ML SYRINGE SUB-Q (07:59)
--- NOTE | 2021-02-11 08:13 | P.PNNP_ITS ---
Progress Note: A&P Assessment and Plan (1) Hyponatremia: Code(s): E87.1 - Hypo-osmolality and hyponatremia Status: Acute Assessment and Plan: * he has hyponatremia. * TSH is okay. * Cortrosyn stim test was negative. * His electrophoresis is pending * Most likely this is excessive water drinking out stripping his free water excretory capacity. The pneumonia may be reducing is expiratory capacity with mild SIADH. * This sodium level dropped to 125. I talked with the patient about how dangerous low sodium can be. I asked him to cut back on fluids again. I told him that we were going to restrict his fluid to 6L intake to see if we can get that sodium coming up. * The patient understands the potential gravity of the situation. * Discussed with nursing and Dr. Gardner (2) Acute respiratory failure with hypoxia: Code(s): J96.01 - Acute respiratory failure with hypoxia Status: Acute Assessment and Plan: * due to bacterial versus viral pneumonia * on antibiotic therapy * follow cultures * supplemental oxygen * Oxygenation is better. Chest x-ray is marginally better. (3) Sepsis: Code(s): A41.9 - Sepsis, unspecified organism Status: Acute Assessment and Plan: * as noted by his presentation with leukocytosis, lactic acidosis, tachypnea, and tachycardia * follow cultures * on broad spectrum antibiotics * follow hemodynamics (BP stable at this time) (4) Pneumonia: Code(s): J18.9 - Pneumonia, unspecified organism Status: Acute Assessment and Plan: * bacterial versus viral? * HIV came back positive. Could this be PCP? * Infectious Disease consulted * follow-up on culture date (5) Suspected 2019 novel coronavirus infection: Code(s): Z20.822 - Contact with and (suspected) exposure to COVID-19 Status: Acute Assessment and Plan: * COVD-19 testing negative x 2 * follow inflammatory markes * remains on isolation Subjective Date/time seen: 02/11/21 08:13 Interval history: The patient feels a little better today. He is less short of breath. No chest pain. He is still drinking a lot of fluid. Yesterday he drink Gatorade, half a bottle each. He also has been drinking lots of water from the ice cups supplied by the hospital but also has his own supply of kiwi bottles that he has been drinking as well. His intake output is negative yet his sodium level dropped. Long discussion with the patient. His sodium level is down to 125. I suspect he is overwhelming is free water excretory capacity. The intake may not be accurate if the patient is drinking water on his own. Review of Systems Cardiovascular: Cardiovascular: Reports no additional cardiovascular complaints Respiratory: Respiratory: Reports no additional respiratory complaints Gastrointestinal: Gastrointestinal: Reports no additional gastrointestinal complaints Genitourinary: Genitourinary: Reports no additional male genitourinary complaints Exam Narrative: Exam Narrative: WDWN in NAD skin no rash head ncat lungs clear cor reg no rub abd BS+ nontender and soft ext no edema. Objective Data Vital Signs Vital Signs: Vital Signs - 24 hr 02/10/21 10:00 02/10/21 11:47 02/10/21 11:58 Temperature Pulse Rate 87 89 93 Respiratory Rate 27 H 16 16 Blood Pressure 105/72 Pulse Oximetry 94
--- NOTE | 2021-02-11 08:13 | PM.PNNEP ---
Progress Note: A&P Assessment and Plan (1) Hyponatremia: Code(s): E87.1 - Hypo-osmolality and hyponatremia Status: Acute Assessment and Plan: he has hyponatremia. TSH is okay. Cortrosyn stim test was negative. His electrophoresis is pending Most likely this is excessive water drinking out stripping his free water excretory capacity. The pneumonia may be reducing is expiratory capacity with mild SIADH. This sodium level dropped to 125. I talked with the patient about how dangerous low sodium can be. I asked him to cut back on fluids again. I told him that we were going to restrict his fluid to 6L intake to see if we can get that sodium coming up. The patient understands the potential gravity of the situation. Discussed with nursing and Dr. Gardner (2) Acute respiratory failure with hypoxia: Code(s): J96.01 - Acute respiratory failure with hypoxia Status: Acute Assessment and Plan: due to bacterial versus viral pneumonia on antibiotic therapy follow cultures supplemental oxygen Oxygenation is better. Chest x-ray is marginally better. (3) Sepsis: Code(s): A41.9 - Sepsis, unspecified organism Status: Acute Assessment and Plan: as noted by his presentation with leukocytosis, lactic acidosis, tachypnea, and tachycardia follow cultures on broad spectrum antibiotics follow hemodynamics (BP stable at this time) (4) Pneumonia: Code(s): J18.9 - Pneumonia, unspecified organism Status: Acute Assessment and Plan: bacterial versus viral? HIV came back positive. Could this be PCP? Infectious Disease consulted follow-up on culture date (5) Suspected 2019 novel coronavirus infection: Code(s): Z20.822 - Contact with and (suspected) exposure to COVID-19 Status: Acute Assessment and Plan: COVD-19 testing negative x 2 follow inflammatory markes remains on isolation Subjective Date/time seen: 02/11/21 08:13 Interval history: The patient feels a little better today. He is less short of breath. No chest pain. He is still drinking a lot of fluid. Yesterday he drink Gatorade, half a bottle each. He also has been drinking lots of water from the ice cups supplied by the hospital but also has his own supply of kiwi bottles that he has been drinking as well. His intake output is negative yet his sodium level dropped. Long discussion with the patient. His sodium level is down to 125. I suspect he is overwhelming is free water excretory capacity. The intake may not be accurate if the patient is drinking water on his own. Review of Systems Cardiovascular: Cardiovascular: Reports no additional cardiovascular complaints Respiratory: Respiratory: Reports no additional respiratory complaints Gastrointestinal: Gastrointestinal: Reports no additional gastrointestinal complaints Genitourinary: Genitourinary: Reports no additional male genitourinary complaints Exam Narrative: Exam Narrative: WDWN in NAD skin no rash head ncat lungs clear cor reg no rub abd BS+ nontender and soft ext no edema. Objective Data Vital Signs Vital Signs: Vital Signs - 24 hr 02/10/21 10:00 02/10/21 11:47 02/10/21 11:58 Temperature Pulse Rate 87 89 93 Respiratory Rate 27 H 16 16 Blood Pressure 105/72 Pulse Oximetry 94 02/10/21 12:00 02/10/21 14:00 02/10/21 16:00 Temperature 37.1 C 37.5 C Pulse Rate 97 89 92 Respiratory Rate 21 H 37 H 19 Blood Pressure 124/70 110/66 122/77 Pulse Oximetry 98 94 100 02/10/21 16:17 02/10/21 16:27 02/10/21 18:00 Temperature Pulse Rate 82 86 88 Respiratory Rate 20 20 36 H Blood Pressure 104/88 Pulse Oximetry 97 02/10/21 19:46 02/10/21 19:52 02/10/21 19:54 Temperature Pulse Rate 89 99 91 Respiratory Rate 29 H 22 H 23 H Blood Pressure Pulse Oximetry 95 96 02/10/21 20:00 02/10/21 20:10 02/10/21 22:00 Temperature 37.4 C Pulse Rate 88 8
--- NOTE | 2021-02-11 08:42 | WPDINTPN ---
Progress Note: A&P Assessment and Plan (1) Acute respiratory failure with hypoxia: Code(s): J96.01 - Acute respiratory failure with hypoxia Status: Acute Assessment and Plan: Acute respiratory failure secondary to pneumonia, possible COVID-19 but SARS-CoV-2 PCR has been negative x2 -repeat SARS-CoV-2 PCR negative x3 -patient is feeling better on Airvo 50 % FiO2 and 45 L flow rate -continue albuterol, Atrovent nebs, add pulmicort -continue vancomycin and Zosyn (initiated on 02/08/2021) for coverage of MRSA and Pseudomonas -infectious disease added azithromycin which was initiated on 02/10/2021 -chest x-ray continues to show bilateral diffuse infiltrates (2) Community acquired pneumonia: Qualifiers: Laterality: unspecified laterality Qualified Code(s): J18.9 - Pneumonia, unspecified organism Code(s): J18.9 - Pneumonia, unspecified organism Status: Acute Assessment and Plan: Bacterial versus viral pneumonia -continue antibiotics and bronchodilators the above -appreciate infectious disease evaluation and recommendation (3) Severe sepsis: Code(s): A41.9 - Sepsis, unspecified organism; R65.20 - Severe sepsis without septic shock Status: Acute Assessment and Plan: Patient presented with leukocytosis, lactic acidosis, tachypnea, tachycardia -likely source is the lungs -leukocytosis normalized -blood cultures negative x2 -sputum cultures inconclusive as the sputum sample was contaminated, sputum culture has been repeated -antibiotics as above -lactic acid has resolved (4) Hyponatremia: Code(s): E87.1 - Hypo-osmolality and hyponatremia Status: Acute Assessment and Plan: Patient with polydipsia, polyuria hypo natremia, could be related to SIADH due to severe pneumonia/infection, possible psychogenic polydipsia possible PJP pneumonia. Patient has been drinking fluids for a very long time -appreciate Nephrology evaluation recommendation -discontinue all IV fluids, patient has been asked to restrict his fluid intake -will continue to monitor -fluid restriction of 6 L has been ordered per Nephrology (5) Suspected 2019 novel coronavirus infection: Code(s): Z20.822 - Contact with and (suspected) exposure to COVID-19 Status: Acute Assessment and Plan: SARS-CoV-2 PCR PCR negative x2 -COVID-19 swab negative for the 3rd time --elevated inflammatory markers, continue to trend, - continue droplet, airborne and contact isolation/precautions (6) Tobacco dependence: Code(s): F17.200 - Nicotine dependence, unspecified, uncomplicated Status: Acute Assessment and Plan: Patient stop smoking about 12 days ago prior to which he was smoking 1 packet for 25 years -he is going to quit smoking (7) Dietary counseling and surveillance: Code(s): Z71.3 - Dietary counseling and surveillance Status: Acute Assessment and Plan: Continue heart healthy diet (8) DVT prophylaxis: Code(s): Z29.9 - Encounter for prophylactic measures, unspecified Status: Acute Assessment and Plan: Lovenox (9) HIV positive: Code(s): Z21 - Asymptomatic human immunodeficiency virus [HIV] infection status Status: Acute Assessment and Plan: Infectious disease tested patient for HIV which was positive -infectious disease following the patient closely -possible PJP pneumonia urine HIV-positive state, elevated LDH and radiographic findings Additional Plan Discussed with patient updated with his condition and plan of care. Answered all questions Code status: Full code Critical care time spent: 34 minutes This dictation may have been done utilizing a voice recognition system. Attempts have been made to correct errors. However, there may be uncorrected grammatical, spelling, and recognition errors present. Due to a high probability of clinically significant, life threatening deterioration, the patient require
[2021-02-11] MEDS: BUDESONIDE RESPULE NEB 0.5 MG/2 ML AMP INHALATION ×2 (08:56→20:12)
[2021-02-11] MEDS: POTASSIUM CHLORIDE 20 MEQ TABLET 40 MEQ PO (09:17)
--- NOTE | 2021-02-11 13:13 | PM.IMPN ---
Progress Note: A&P Assessment and Plan (1) Community acquired pneumonia: Qualifiers: Laterality: unspecified laterality Qualified Code(s): J18.9 - Pneumonia, unspecified organism Code(s): J18.9 - Pneumonia, unspecified organism Status: Acute Assessment and Plan: Patient on broad-spectrum antibiotics Unusually ground glass opacities on CT chest Covid test is negative. Pt is weaning off oxygen but is still spiking fevers today Pt has history of AIDS, AIDS related pneumonia. mycoplasma and legionella ordered (2) Acute respiratory failure with hypoxia: Code(s): J96.01 - Acute respiratory failure with hypoxia Status: Acute Assessment and Plan: Improving on 2 liters nasal cannulae (3) Hyponatremia: Code(s): E87.1 - Hypo-osmolality and hyponatremia Status: Acute Assessment and Plan: Likely combination of is IADH (4) Suspected 2019 novel coronavirus infection: Code(s): Z20.822 - Contact with and (suspected) exposure to COVID-19 Status: Acute Assessment and Plan: Patient has tested negative x2 (5) Tobacco dependence: Code(s): F17.200 - Nicotine dependence, unspecified, uncomplicated Status: Acute Assessment and Plan: Patient was a current everyday smoker Nicotine patch provided (6) HIV positive: Code(s): Z21 - Asymptomatic human immunodeficiency virus [HIV] infection status Status: Acute Assessment and Plan: HIV positive CD4 and viral load ordered Hepatitis panel ordered Subjective Date/time seen: 02/11/21 13:14 Interval history: 45-year-old male with no significant past medical history he smokes 1 pack per day of cigarettes patient presented to the emergency room the day before due to chills rigors cough dry nonproductive of sputum he was tested for COVID test results came back negative and he was discharged home on Tessalon Perles , Zithromax and albuterol inhaler. patient went home and returned to the emergency room due to worsening shortness of breath. Pt has been tested for covid twice and has been negative both times. Pt CT shows atypical pneumonia. Pt is weaning off oxygen presently on 2 liters on nasal cannulae. Pt can go to medical floor, pt awaiting medical transfer. Review of Systems Review of Systems: All systems reviewed & are unremarkable except as noted in HPI and below Exam Narrative: Exam Narrative: Pt sitting up in the bed Const: General: cooperative, comfortable, no acute distress, well developed, alert, awake, acute distress mild and respiratory, anxious and other (WELL-APPEARING) Nutritional Appearance: average body habitus Orientation/consciousness: patient oriented x3 Resp: Effort & Inspection: normal respiratory effort Neuro: General: patient oriented x3 and CN's II-XI intact bilaterally Cranial nerves: Yes CN's II-XII intact bilaterally and Yes Equal, round and reactive pupils present Cognition (Neuro): normal cognition Speech: normal speech Gait exam (Neuro): Normal gait present Motor exam (neuro): 5/5 motor strength present throughout Extrem: General: normal to inspection, full ROM, no joint enlargement and no pedal edema Objective Data Vital Signs Vital Signs: Vital Signs - 24 hr 02/10/21 14:00 02/10/21 16:00 02/10/21 16:17 Temperature 37.5 C Pulse Rate 89 92 82 Respiratory Rate 37 H 19 20 Blood Pressure 110/66 122/77 Pulse Oximetry 94 100 02/10/21 16:27 02/10/21 18:00 02/10/21 19:46 Temperature Pulse Rate 86 88 89 Respiratory Rate 20 36 H 29 H Blood Pressure 104/88 Pulse Oximetry 97 95 02/10/21 19:52 02/10/21 19:54 02/10/21 20:00 Temperature 37.4 C Pulse Rate 99 91 88 Respiratory Rate 22 H 23 H 19 Blood Pressure 122/71 Pulse Oximetry 96 99 02/10/21 20:10 02/10/21 22:00 02/10/21 23:26 Temperature Pulse Rate 89 89 82 Respiratory Rate 22 H 27 H 29 H Blood Pressure 122/65 Pulse Oximetry 96 98
[2021-02-11 16:17] LABS: Vancomycin Trough 6.1 ug/mL (10.0-20.0)
[2021-02-11 17:30] LABS: Sodium 130 mmol/L (137-145)
[2021-02-11 19:55] LABS: Pneumococcal Antigen Urine Not Detected (Not Detected)
[2021-02-12] VITALS (23 sets, daily range): BP systolic 108–125; BP diastolic 60–71; PULSE 96–113; RESP 18–26; TEMP 37.1–38.8; O2SAT 92–96
[2021-02-12] MEDS: ALBUTEROL SULFATE NEB 2.5 MG/0.5 ML INH 5 MG INHALATION ×6 (00:30→21:00)
[2021-02-12] MEDS: IPRATROPIUM BR 0.02% INH SOLN 0.5 MG/2.5 ML VIAL INHALATION ×6 (00:30→21:00)
[2021-02-12] MEDS: guaiFENesin/DEXTROMETHORPHAN 10 ML UDC 5 ML PO ×3 (01:08→15:07)
[2021-02-12] MEDS: ACETAMINOPHEN 325 MG TABLET 650 MG PO (03:29)
[2021-02-12 04:00] LABS: Add Urine Microscopic? YES; Appearance Urine Clear (Clear); Bacteria Urine Trace /hpf; Bilirubin Urine Negative (Negative); Blood Urine Negative (Negative); Color Urine Yellow (Yellow); Glucose Urine UA Negative (Negative); Ketones Urine Negative (Negative); Leukocyte Esterase Ur Negative LEU/UL (NEGATIVE); Nitrate Urine Negative (Negative); Protein Urine 1+ mg/dL (Negative); RBC Urine 0-2 /hpf (0-2); Urobilinogen Urine Negative mg/dL (<2.0); WBC Urine 0-3 /hpf (0-3)
[2021-02-12 04:57] LABS: Hemoglobin 10.7 g/dL (14.0-18.0); Mean Corpuscular HGB Conc 34.5 g/dl (32-36); Mean Corpuscular Hemoglobin 29.2 pg (26-34); Mean Corpuscular Volume 84.5 fl (80-100); Mean Platelet Volume 8.8 fl (7.4-10.4); Platelet Count Result 218 k/mm3 (150-375); Red Blood Count 3.67 M/mm3 (4.6-6.20); Red Cell Distribution Width 12.3 % (11.5-14.5); White Blood Count 9.5 K/mm3 (4.5-10.0)
[2021-02-12 05:10] LABS: Alanine Aminotransferase 98 U/L (4-50); Albumin Level 2.8 g/dL (3.5-5.1); Alkaline Phosphatase 146 U/L (38-126); Anion Gap 3 mmol/L (8-16); Aspartate Amino Transferase 124 U/L (17-59); Bilirubin,Total 0.6 mg/dL (0.2-1.3); Blood Urea Nitrogen 4 mg/dL (9-20); Calcium 7.7 mg/dL (8.4-10.2); Carbon Dioxide 29 mmol/L (22-30); Chloride 91 mmol/L (98-107); Estimated CRCL calculation 147 ml/min; Estimated Glomerular Filt Rate > 60; Glucose 106 mg/dL (75-110); Magnesium 1.6 mg/dL (1.6-2.3); Phosphorus 2.8 mg/dL (2.5-4.5); Potassium 3.5 mmol/L (3.4-5.0); Sodium 123 mmol/L (137-145)
[2021-02-12 07:31] LABS: Osmolality, Urine 203 mOsm/kg (50-1200)
[2021-02-12] MEDS: NICOTINE (*PBKC) 21 MG PATCH 1 PATCH TRANSDERM (07:52)
[2021-02-12] MEDS: PANTOPRAZOLE SODIUM IV 40 MG VIAL IV PUSH (07:54)
[2021-02-12] MEDS: DEXAMETHASONE SOD PHOS INJ 4 MG/ML VIAL 6 MG IV PUSH (07:54)
[2021-02-12] MEDS: ENOXAPARIN 40 MG/0.4 ML SYRINGE SUB-Q (07:54)
[2021-02-12] MEDS: BENZONATATE 100 MG CAPSULE PO ×2 (07:55→22:28)
[2021-02-12] MEDS: BUDESONIDE RESPULE NEB 0.5 MG/2 ML AMP INHALATION ×2 (07:57→21:00)
--- NOTE | 2021-02-12 12:34 | PCDIET ---
Weekly nutritional screen. Patient is tolerating current diet with adequate intake. Reports appetite has returned and is making do with the food. No questions or concerns at this time. No weight loss reported. No nutritional needs at this time.
[2021-02-12 14:10] LABS: Chloride Rand Ur 55 mmol/L (32-290); Chloride/Creatinine Rand Ur 167 (23-275); Creatinine Random Urine 33 mg/dL (20-320)
--- NOTE | 2021-02-12 14:31 | WPDINFPN2 ---
Progress Note: A&P Assessment and Plan (1) Pneumonia: Code(s): J18.9 - Pneumonia, unspecified organism Status: Acute Assessment and Plan: 1. Lung infiltrates and fever, suspect pneumonia 2. + HIV screen, he reports NR test 8 years ago. If this is a true infection: tattoos vs sexual contact. Total lymphocyte count on CBC repeatedly normal: argues against PJP but does not fully exclude. REC T cells and HIV quant RNA in process. Discussed with patient that his +result is not yet confirmatory for HIV infection. Nonetheless, add TMP-SMX to PipTazo and Azithro. Sputum and nasal screen are negative for MRSA, stop Vanc. Subjective Date/time seen: 02/12/21 14:31 Interval history: feels better. Minimal yellow sputum Exam Narrative: Exam Narrative: t max 38.8 Const: General: no acute distress Eyes: General: appearance normal, both eyes and all related structures Resp: Auscultation: rales, no wheezes and diminished lung sounds Other: vesicular Cardio: Rate: tachycardic Heart sounds: no gallops and no murmurs GI: Inspection: non-distended GI Palp: Yes Soft to palpation and No Tenderness to palpation present (GI) Objective Data Vital Signs Vital Signs: Vital Signs - 24 hr 02/11/21 15:14 02/11/21 15:15 02/11/21 16:15 Temperature 38.1 C H 38.1 C H 37.2 C Pulse Rate 100 Respiratory Rate 22 H Blood Pressure 110/73 Pulse Oximetry 94 02/11/21 16:36 02/11/21 16:43 02/11/21 19:29 Temperature 38.1 C H Pulse Rate 92 102 H Respiratory Rate 20 20 Blood Pressure Pulse Oximetry 95 02/11/21 19:48 02/11/21 20:12 02/11/21 20:16 Temperature Pulse Rate 97 96 105 H Respiratory Rate 21 H 20 Blood Pressure Pulse Oximetry 95 93 02/11/21 20:22 02/11/21 23:38 02/11/21 23:42 Temperature 38.5 C H 38.5 C H Pulse Rate 107 H 99 Respiratory Rate 22 H 28 H Blood Pressure 123/69 Pulse Oximetry 94 02/12/21 00:45 02/12/21 00:56 02/12/21 01:36 Temperature Pulse Rate 101 H 100 98 Respiratory Rate 25 H 26 H Blood Pressure Pulse Oximetry 94 02/12/21 01:39 02/12/21 03:29 02/12/21 04:58 Temperature 38.4 C H 38.8 C H Pulse Rate 97 Respiratory Rate 24 H Blood Pressure Pulse Oximetry 02/12/21 05:04 02/12/21 05:24 02/12/21 07:50 Temperature 37.6 C 37.4 C Pulse Rate 98 97 Respiratory Rate 24 H 22 H Blood Pressure 125/67 Pulse Oximetry 95 94 02/12/21 07:57 02/12/21 08:00 02/12/21 08:08 Temperature Pulse Rate 104 H 107 H Respiratory Rate 20 22 H Blood Pressure Pulse Oximetry 96 92 02/12/21 11:43 02/12/21 11:53 Temperature Pulse Rate 101 H 105 H Respiratory Rate 20 20 Blood Pressure Pulse Oximetry Intake/Output Intake/Output: Intake & Output 02/09/21 02/10/21 02/11/21 02/12/21 23:59 23:59 23:59 23:59 Intake Total 79725 8340 6900 3920 Output Total 41205 95282 6850 4400 [facility]9591 -1995 50 480 Meds/Results Medications: Active Medications Generic Name Dose Route Start Last Admin Trade Name Freq PRN Reason Stop Dose Admin Acetaminophen 650 mg 02/06/21 07:21 02/12/21 03:29 Acetaminophen 325 Mg Tablet PO 650 mg Q4H PRN Administration Mild Pain (1-3) or Fever Albuterol 2 puff 02/06/21 09:18 Albuterol Sulfate (*Sp) Aerosol 1 Puff INHALATION Q4-6H PRN shortness of breath or wheezing Albuterol 5 mg 02/06/21 12:00 02/12/21 11:42 Albuterol Sulfate Neb 2.5 Mg/0.5 Ml Inh INHALATION 5 mg Q4HRT JOHN Administration Benzonatate 100 mg 02/09/21 15:04 02/12/21 07:55 Benzonatate 100 Mg Capsule PO 100 mg TID PRN Administration cough Budesonide 0.5 mg 02/08/21 20:00 02/12/21 07:57 Budesonide Respule Neb 0.5 Mg/2 Ml Amp INHALATION 0.5 mg Q12HRT JOHN Administration Calcium Carbonate 200 mg 02/10/21 15:05 02/10/21 19:39 Calcium Carbonate (Tums) 500 Mg (200 Mg Elemental) PO 200 mg Q4H PRN Administration Indigestion Dexamethasone S
--- NOTE | 2021-02-12 14:39 | PM.IMPN ---
Progress Note: A&P Assessment and Plan (1) Community acquired pneumonia: Qualifiers: Laterality: unspecified laterality Qualified Code(s): J18.9 - Pneumonia, unspecified organism Code(s): J18.9 - Pneumonia, unspecified organism Status: Acute Assessment and Plan: Patient on broad-spectrum antibiotics Unusually ground glass opacities on CT chest Covid test is negative. Pt is weaning off oxygen but is still spiking fevers today Pt has history of AIDS, AIDS related pneumonia. mycoplasma and legionella ordered hivviral load pending (2) Acute respiratory failure with hypoxia: Code(s): J96.01 - Acute respiratory failure with hypoxia Status: Acute Assessment and Plan: Improving on 4 liters nasal cannulae (3) Hyponatremia: Code(s): E87.1 - Hypo-osmolality and hyponatremia Status: Acute Assessment and Plan: Likely combination of is IADH (4) Suspected 2019 novel coronavirus infection: Code(s): Z20.822 - Contact with and (suspected) exposure to COVID-19 Status: Acute Assessment and Plan: Patient has tested negative x2 (5) Tobacco dependence: Code(s): F17.200 - Nicotine dependence, unspecified, uncomplicated Status: Acute Assessment and Plan: Patient was a current everyday smoker Nicotine patch provided (6) HIV positive: Code(s): Z21 - Asymptomatic human immunodeficiency virus [HIV] infection status Status: Acute Assessment and Plan: HIV positive CD4 and viral load ordered Hepatitis panel ordered Subjective Date/time seen: 02/12/21 14:39 Interval history: 45-year-old male with no significant past medical history he smokes 1 pack per day of cigarettes patient presented to the emergency room the day before due to chills rigors cough dry nonproductive of sputum he was tested for COVID test results came back negative and he was discharged home on Tessalon Perles , Zithromax and albuterol inhaler. patient went home and returned to the emergency room due to worsening shortness of breath. Pt has been tested for covid twice and has been negative both times. Pt CT shows atypical pneumonia. Pt is weaning off oxygen presently on 4 liters on nasal cannulae. Pt can go to medical floor, pt awaiting medical transfer. Review of Systems Review of Systems: All systems reviewed & are unremarkable except as noted in HPI and below Exam Narrative: Exam Narrative: Pt sitting up in the bed Const: General: acute distress mild and respiratory HENMT: Head: normal to inspection, normocephalic and atraumatic Ears: hearing grossly normal bilaterally Face and sinus: normal facial exam Eyes: General: appearance normal, both eyes and all related structures Pupils: Equal, round and reactive pupils present EOM: EOMs intact bilaterally Neck: Neck: full ROM, no lymphadenopathy and no JVD Thyroid: thyroid normal Lymphatic: no lymphadenopathy noted Resp: Effort & Inspection: normal respiratory effort and able to speak in complete sentences Cardio: Jugular venous distension: no JVD Rate: regular rate Rhythm: regular rhythm Heart sounds: S1 normal heart sound present and S2 normal heart sound present Skin: Rashes: no rashes Wounds: no wounds Neuro: General: patient oriented x3 and CN's II-XI intact bilaterally Cranial nerves: Yes CN's II-XII intact bilaterally and Yes Equal, round and reactive pupils present Cognition (Neuro): normal cognition Speech: normal speech Gait exam (Neuro): Normal gait present Motor exam (neuro): 5/5 motor strength present throughout Extrem: General: normal to inspection, full ROM, no joint enlargement and no pedal edema Objective Data Vital Signs Vital Signs: Vital Signs - 24 hr 02/11/21 15:14 02/11/21 15:15 02/11/21 16:15 Temperature 38.1 C H 38.1 C H 37.2 C Pulse Rate 100 Respiratory Rate 22 H Blood Pressure 110/73 Pulse Oximetry 94 02/11/21 16:36 02/11/21
[2021-02-12 14:55] LABS: Legionella pneumophila Ag Ur Not Detected (Not Detected)
[2021-02-12 15:12] LABS: HIV 1 2 Ag Ab 4th Gen w Rflxs Non-reactive (Non-reactive)
--- NOTE | 2021-02-12 15:29 | P.PNNP_ITS ---
Progress Note: A&P Assessment and Plan (1) Hyponatremia: Code(s): E87.1 - Hypo-osmolality and hyponatremia Status: Acute Assessment and Plan: * he has hyponatremia. * TSH is okay. * Cortrosyn stim test was negative. * His electrophoresis is pending * His urine osmolality is 203. 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 Hormones are okay. Electrophoresis is pending. chest x-ray, chest CT do not show anything to suggest cancer. If this is still a problem 1 is lungs clear up consider further workup to look for cancer and or SPECIAL SERVICES COORDINATOR disease. * Most likely this is excessive water drinking out stripping his free water excretory capacity. * This sodium level Was 125 yesterday, marilou to 130 in the evening ( value was not called) but this morning down to 123. It is possibly to drink extra fluid overnight to bring the sodium level down. I reviewed with the nurse and with the patient again about the importance of fluid restriction. Will enhance the fluid restriction to4L per day. Repeat a sodium again at 4:00 p.m. today and the nurse will call this period * The patient understands the potential gravity of the situation. * Discussed with nursing and Dr. Gardner (2) Acute respiratory failure with hypoxia: Code(s): J96.01 - Acute respiratory failure with hypoxia Status: Acute Assessment and Plan: * due to bacterial versus viral pneumonia * on antibiotic therapy * follow cultures * supplemental oxygen * Oxygenation is better. Chest x-ray is marginally better. (3) Sepsis: Code(s): A41.9 - Sepsis, unspecified organism Status: Acute Assessment and Plan: * as noted by his presentation with leukocytosis, lactic acidosis, tachypnea, and tachycardia * follow cultures * on broad spectrum antibiotics * follow hemodynamics (BP stable at this time) (4) Pneumonia: Code(s): J18.9 - Pneumonia, unspecified organism Status: Acute Assessment and Plan: * bacterial versus viral? * HIV came back positive. Could this be PCP? TMP sulfa added. * Infectious Disease consulted * follow-up on culture date (5) Suspected 2019 novel coronavirus infection: Code(s): Z20.822 - Contact with and (suspected) exposure to COVID-19 Status: Acute Assessment and Plan: * COVD-19 testing negative x 2 * follow inflammatory markes * remains on isolation Subjective Date/time seen: 02/12/21 15:29 Interval history: The patient feels a little better today. He is less short of breath. No chest pain. He Seems to be drinking less fluid. Only about 6L of urine yesterday. Long discussion with the patient. His sodium level is down to 123. He understands the issues with the sodium level. Exam Narrative: Exam Narrative: WDWN in NAD skin no rash head ncat lungs clear cor reg no rub abd BS+ nontender and soft ext no edema. Objective Data Vital Signs Vital Signs: Vital Signs - 24 hr 02/11/21 16:15 02/11/21 16:36 02/11/21 16:43 Temperature 37.2 C Pulse Rate 92 102 H Respiratory Rate 20 20 Blood Pressure Pulse Oximetry 95 02/11/21 19:29 02/11/21 19:48 02/11/21 20:12 Temperature 38.1 C H Pulse Rate 97 96 Respiratory Rate 21 H 20
--- NOTE | 2021-02-12 15:29 | PM.PNNEP ---
Progress Note: A&P Assessment and Plan (1) Hyponatremia: Code(s): E87.1 - Hypo-osmolality and hyponatremia Status: Acute Assessment and Plan: he has hyponatremia. TSH is okay. Cortrosyn stim test was negative. His electrophoresis is pending His urine osmolality is 203. 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 The SIADH is most likely from his lung disease. Hormones are okay. Electrophoresis is pending. chest x-ray, chest CT do not show anything to suggest cancer. If this is still a problem 1 is lungs clear up consider further workup to look for cancer and or ANIMATION DIRECTOR disease. Most likely this is excessive water drinking out stripping his free water excretory capacity. This sodium level Was 125 yesterday, marilou to 130 in the evening ( value was not called) but this morning down to 123. It is possibly to drink extra fluid overnight to bring the sodium level down. I reviewed with the nurse and with the patient again about the importance of fluid restriction. Will enhance the fluid restriction to4L per day. Repeat a sodium again at 4:00 p.m. today and the nurse will call this period The patient understands the potential gravity of the situation. Discussed with nursing and Dr. Gardner (2) Acute respiratory failure with hypoxia: Code(s): J96.01 - Acute respiratory failure with hypoxia Status: Acute Assessment and Plan: due to bacterial versus viral pneumonia on antibiotic therapy follow cultures supplemental oxygen Oxygenation is better. Chest x-ray is marginally better. (3) Sepsis: Code(s): A41.9 - Sepsis, unspecified organism Status: Acute Assessment and Plan: as noted by his presentation with leukocytosis, lactic acidosis, tachypnea, and tachycardia follow cultures on broad spectrum antibiotics follow hemodynamics (BP stable at this time) (4) Pneumonia: Code(s): J18.9 - Pneumonia, unspecified organism Status: Acute Assessment and Plan: bacterial versus viral? HIV came back positive. Could this be PCP? TMP sulfa added. Infectious Disease consulted follow-up on culture date (5) Suspected 2019 novel coronavirus infection: Code(s): Z20.822 - Contact with and (suspected) exposure to COVID-19 Status: Acute Assessment and Plan: COVD-19 testing negative x 2 follow inflammatory markes remains on isolation Subjective Date/time seen: 02/12/21 15:29 Interval history: The patient feels a little better today. He is less short of breath. No chest pain. He Seems to be drinking less fluid. Only about 6L of urine yesterday. Long discussion with the patient. His sodium level is down to 123. He understands the issues with the sodium level. Exam Narrative: Exam Narrative: WDWN in NAD skin no rash head ncat lungs clear cor reg no rub abd BS+ nontender and soft ext no edema. Objective Data Vital Signs Vital Signs: Vital Signs - 24 hr 02/11/21 16:15 02/11/21 16:36 02/11/21 16:43 Temperature 37.2 C Pulse Rate 92 102 H Respiratory Rate 20 20 Blood Pressure Pulse Oximetry 95 02/11/21 19:29 02/11/21 19:48 02/11/21 20:12 Temperature 38.1 C H Pulse Rate 97 96 Respiratory Rate 21 H 20 Blood Pressure Pulse Oximetry 95 02/11/21 20:16 02/11/21 20:22 02/11/21 23:38 Temperature 38.5 C H Pulse Rate 105 H 107 H Respiratory Rate 22 H Blood Pressure Pulse Oximetry 93 02/11/21 23:42 02/12/21 00:45 02/12/21 00:56 Temperature 38.5 C H Pulse Rate 99 101 H 100 Respiratory Rate 28 H 25 H 26 H Blood Pressure 123/69 Pulse Oximetry 94 02/12/21 01:36 02/12/21 01:39 02/12/21 03:29 Temperature 38.4 C H 38.8 C H Pulse Rate 98 Respiratory Rate Blood Pressure Pulse Oximetry 94 02/12/21 04:58 02/12/21 05:04 02/12/21 05:24 Temperature 37.6 C Pu
[2021-02-12 16:14] LABS: Sodium 131 mmol/L (137-145)
--- NOTE | 2021-02-12 19:11 | PC.NURSE ---
This patient, Dakotah Christensen, was transferred to [[id number] ] on 02/12/21 at 1911. Personal belongings sent with patient. Report given to [HUMAIRA Britt @ [phone] ]. Appropriate documentation sent with patient.
[2021-02-12 20:36] LABS: Sodium 130 mmol/L (137-145)
[2021-02-13] VITALS (17 sets, daily range): BP systolic 94–104; BP diastolic 53–63; PULSE 84–117; RESP 20–28; TEMP 37–37.5; O2SAT 90–97
[2021-02-13] MEDS: IPRATROPIUM BR 0.02% INH SOLN 0.5 MG/2.5 ML VIAL INHALATION ×6 (00:09→19:47)
[2021-02-13] MEDS: ALBUTEROL SULFATE NEB 2.5 MG/0.5 ML INH 5 MG INHALATION ×6 (00:09→19:47)
[2021-02-13] MEDS: ACETAMINOPHEN 325 MG TABLET 650 MG PO (00:34)
[2021-02-13 01:31] LABS: Kappa\\Lambda Light Chains 0.34 (0.26-1.65); Lambda Light Chain 114.1 mg/L (5.7-26.3)
[2021-02-13 06:10] LABS: Hematocrit 32.2 % (42.0-52.0); Hemoglobin 11.1 g/dL (14.0-18.0); Mean Corpuscular HGB Conc 34.5 g/dl (32-36); Mean Corpuscular Hemoglobin 29.6 pg (26-34); Mean Corpuscular Volume 85.9 fl (80-100); Mean Platelet Volume 9.4 fl (7.4-10.4); Platelet Count Result 207 k/mm3 (150-375); Red Blood Count 3.75 M/mm3 (4.6-6.20); Red Cell Distribution Width 12.5 % (11.5-14.5); White Blood Count 8.8 K/mm3 (4.5-10.0)
[2021-02-13 06:28] LABS: D Dimer 1.92 ug/mL (<0.48)
[2021-02-13 06:37] LABS: Lactic Acid Reflex 1.2 mmol/L (0.7-2.1)
[2021-02-13 06:41] LABS: Alanine Aminotransferase 109 U/L (4-50); Alkaline Phosphatase 152 U/L (38-126); Anion Gap 5 mmol/L (8-16); Aspartate Amino Transferase 131 U/L (17-59); Bilirubin,Total 0.5 mg/dL (0.2-1.3); Blood Urea Nitrogen 7 mg/dL (9-20); Calcium 7.9 mg/dL (8.4-10.2); Carbon Dioxide 28 mmol/L (22-30); Chloride 94 mmol/L (98-107); Estimated CRCL calculation 130 ml/min; Estimated Glomerular Filt Rate > 60; Glucose 108 mg/dL (75-110); Lactate Dehydrogenase 1215 U/L (313-618); Magnesium 1.8 mg/dL (1.6-2.3); Potassium 3.4 mmol/L (3.4-5.0); Sodium 127 mmol/L (137-145)
[2021-02-13 06:53] LABS: Albumin 2.8 g/dL (3.8-4.8); Alpha 1 Globulin 0.5 g/dL (0.2-0.3); Alpha 2 Globulin 0.9 g/dL (0.5-0.9); Beta 1 Globulin 0.4 g/dL (0.4-0.6); Gamma Globulin 1.4 g/dL (0.8-1.7); Protein, Total 6.4 g/dL (6.1-8.1)
[2021-02-13 08:36] LABS: Ferritin > 2000.00 ng/mL (17.9-464)
[2021-02-13] MEDS: BUDESONIDE RESPULE NEB 0.5 MG/2 ML AMP INHALATION ×2 (09:07→19:47)
[2021-02-13] MEDS: guaiFENesin/DEXTROMETHORPHAN 10 ML UDC 5 ML PO ×2 (09:25→22:53)
[2021-02-13] MEDS: PANTOPRAZOLE SODIUM IV 40 MG VIAL IV PUSH (09:28)
[2021-02-13] MEDS: ENOXAPARIN 40 MG/0.4 ML SYRINGE SUB-Q (09:28)
[2021-02-13] MEDS: NICOTINE (*PBKC) 21 MG PATCH 1 PATCH TRANSDERM (09:29)
[2021-02-13] MEDS: DEXAMETHASONE SOD PHOS INJ 4 MG/ML VIAL 6 MG IV PUSH (09:29)
--- NOTE | 2021-02-13 10:40 | P.PNNP_ITS ---
Progress Note: A&P Assessment and Plan (1) Hyponatremia: Code(s): E87.1 - Hypo-osmolality and hyponatremia Status: Acute Assessment and Plan: * he has hyponatremia. * TSH is okay. * Cortrosyn stim test was negative. * His electrophoresis is pending * His urine osmolality is 203. 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 * Sodium levels: * 02/06 127 * 02/07 132 * 02/09 129 * 02/11 125 to 130 * 02/12 123 to 131 to 130 * 02/13 127 * continue 5L fluid restriction for now but restrict more if needed. (2) Acute respiratory failure with hypoxia: Code(s): J96.01 - Acute respiratory failure with hypoxia Status: Acute Assessment and Plan: * due to bacterial versus viral pneumonia * on antibiotic therapy * follow cultures * supplemental oxygen * Oxygenation is better. (3) Sepsis: Code(s): A41.9 - Sepsis, unspecified organism Status: Acute Assessment and Plan: * as noted by his presentation with leukocytosis, lactic acidosis, tachypnea, and tachycardia * follow cultures * on broad spectrum antibiotics * BP doing well (4) Pneumonia: Code(s): J18.9 - Pneumonia, unspecified organism Status: Acute Assessment and Plan: * bacterial versus viral? * HIV came back positive. Could this be PCP? TMP sulfa added. * Infectious Disease consulted * multiple cultures and serology pending. (5) Suspected 2019 novel coronavirus infection: Code(s): Z20.822 - Contact with and (suspected) exposure to COVID-19 Status: Acute Assessment and Plan: * COVD-19 testing negative x 2 * follow inflammatory markes * remains on isolation Subjective Date/time seen: 02/13/21 10:40 Interval history: The patient feels a little better today. He is less short of breath. he move out of the ICU. He is in an isolation room with negative pressure. Because of the negative pressure machine he feels like the room is very dry so was very thirsty last night. Review of Systems Cardiovascular: Cardiovascular: Reports no additional cardiovascular complaints Respiratory: Respiratory: Reports no additional respiratory complaints Gastrointestinal: Gastrointestinal: Reports no additional gastrointestinal complaints Genitourinary: Genitourinary: Reports no additional male genitourinary complaints Exam Narrative: Exam Narrative: WDWN in NAD skin no rash head ncat lungs By basilar crackles cor reg no rub abd BS+ nontender and soft ext no edema. Objective Data Vital Signs Vital Signs: Vital Signs - 24 hr 02/12/21 11:43 02/12/21 11:53 02/12/21 15:58 Temperature 37.1 C Pulse Rate 101 H 105 H 97 Respiratory Rate 20 20 24 H Blood Pressure 116/67 Pulse Oximetry 94 02/12/21 16:47 02/12/21 16:55 02/12/21 20:00 Temperature 37.7 C H Pulse Rate 96 103 H 108 H Respiratory Rate 20 20 20 Blood Pressure 108/60 Pulse Oximetry 92 02/12/21 21:05 02/12/21 21:10 02/12/21 21:25 Temperature Pulse Rate 96 96 103 H Respiratory Rate 20 20 Blood Pressure Pulse Oximetry 96 02/12/21 23:00 02/12/21 23:26 02/13/21 00:09
--- NOTE | 2021-02-13 10:40 | PM.PNNEP ---
Progress Note: A&P Assessment and Plan (1) Hyponatremia: Code(s): E87.1 - Hypo-osmolality and hyponatremia Status: Acute Assessment and Plan: he has hyponatremia. TSH is okay. Cortrosyn stim test was negative. His electrophoresis is pending His urine osmolality is 203. 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 Sodium levels: 02/06 127 /16 132 / 129 02/11 125 to 130 02/12 123 to 131 to 130 02/13 127 continue 5L fluid restriction for now but restrict more if needed. (2) Acute respiratory failure with hypoxia: Code(s): J96.01 - Acute respiratory failure with hypoxia Status: Acute Assessment and Plan: due to bacterial versus viral pneumonia on antibiotic therapy follow cultures supplemental oxygen Oxygenation is better. (3) Sepsis: Code(s): A41.9 - Sepsis, unspecified organism Status: Acute Assessment and Plan: as noted by his presentation with leukocytosis, lactic acidosis, tachypnea, and tachycardia follow cultures on broad spectrum antibiotics BP doing well (4) Pneumonia: Code(s): J18.9 - Pneumonia, unspecified organism Status: Acute Assessment and Plan: bacterial versus viral? HIV came back positive. Could this be PCP? TMP sulfa added. Infectious Disease consulted multiple cultures and serology pending. (5) Suspected 2019 novel coronavirus infection: Code(s): Z20.822 - Contact with and (suspected) exposure to COVID-19 Status: Acute Assessment and Plan: COVD-19 testing negative x 2 follow inflammatory markes remains on isolation Subjective Date/time seen: 02/13/21 10:40 Interval history: The patient feels a little better today. He is less short of breath. he move out of the ICU. He is in an isolation room with negative pressure. Because of the negative pressure machine he feels like the room is very dry so was very thirsty last night. Review of Systems Cardiovascular: Cardiovascular: Reports no additional cardiovascular complaints Respiratory: Respiratory: Reports no additional respiratory complaints Gastrointestinal: Gastrointestinal: Reports no additional gastrointestinal complaints Genitourinary: Genitourinary: Reports no additional male genitourinary complaints Exam Narrative: Exam Narrative: WDWN in NAD skin no rash head ncat lungs By basilar crackles cor reg no rub abd BS+ nontender and soft ext no edema. Objective Data Vital Signs Vital Signs: Vital Signs - 24 hr 04/21/21 11:43 02/12/21 11:53 02/12/21 15:58 Temperature 37.1 C Pulse Rate 101 H 105 H 97 Respiratory Rate 20 20 24 H Blood Pressure 116/67 Pulse Oximetry 94 02/12/21 16:47 02/12/21 16:55 02/12/21 20:00 Temperature 37.7 C H Pulse Rate 96 103 H 108 H Respiratory Rate 20 20 20 Blood Pressure 108/60 Pulse Oximetry 92 02/12/21 21:05 02/12/21 21:10 02/12/21 21:25 Temperature Pulse Rate 96 96 103 H Respiratory Rate 20 20 Blood Pressure Pulse Oximetry 96 02/12/21 23:00 02/12/21 23:26 02/13/21 00:09 Temperature 37.9 C H Pulse Rate 103 H 113 H 110 H Respiratory Rate 20 18 22 H Blood Pressure 120/71 Pulse Oximetry 93 92 02/13/21 00:23 02/13/21 03:54 02/13/21 04:00 Temperature 37.5 C Pulse Rate 117 H 91 92 Respiratory Rate 22 H 28 H 20 Blood Pressure 94/53 L Pulse Oximetry 90 02/13/21 04:05 02/13/21 09:08 02/13/21 09:25 Temperature Pulse Rate 94 106 H 104 H Respiratory Rate 26 H 24 H 22 H Blood Pressure Pulse Oximetry 93 Intake/Output Intake/Output: Intake & Output 02/10/21 02/11/21 02/12/21 02/13/21 23:59 23:59 23:59 23:59 Intake Total 8340 6900 6400 1200 Output Total 65171 6850 6800 Balance -2210 50 -400 1200 Meds/Results Medications: Active Medications Generic Name Dose Route Start Last Admin Trade Name Freq PRN Reason Stop Dose Admin
--- NOTE | 2021-02-13 17:13 | PM.IMPN ---
Progress Note: A&P Assessment and Plan (1) Community acquired pneumonia: Qualifiers: Laterality: unspecified laterality Qualified Code(s): J18.9 - Pneumonia, unspecified organism Code(s): J18.9 - Pneumonia, unspecified organism Status: Acute Assessment and Plan: Patient on broad-spectrum antibiotics Unusually ground glass opacities on CT chest Covid test is negative. Pt is weaning off oxygen but is still spiking fevers today Pt has history of AIDS, AIDS related pneumonia. mycoplasma and legionella ordered hivviral load pending pt being tested for TB ID consulted. (2) Acute respiratory failure with hypoxia: Code(s): J96.01 - Acute respiratory failure with hypoxia Status: Acute Assessment and Plan: Improvingwean off oxygen (3) Hyponatremia: Code(s): E87.1 - Hypo-osmolality and hyponatremia Status: Acute Assessment and Plan: Likely combination of is IADH (4) Suspected 2019 novel coronavirus infection: Code(s): Z20.822 - Contact with and (suspected) exposure to COVID-19 Status: Acute Assessment and Plan: Patient has tested negative x2 (5) Tobacco dependence: Code(s): F17.200 - Nicotine dependence, unspecified, uncomplicated Status: Acute Assessment and Plan: Patient was a current everyday smoker Nicotine patch provided (6) HIV positive: Code(s): Z21 - Asymptomatic human immunodeficiency virus [HIV] infection status Status: Acute Assessment and Plan: HIV positive CD4 and viral load ordered Hepatitis panel ordered Subjective Date/time seen: 02/13/21 17:13 Interval history: 45-year-old male with no significant past medical history he smokes 1 pack per day of cigarettes patient presented to the emergency room the day before due to chills rigors cough dry nonproductive of sputum he was tested for COVID test results came back negative and he was discharged home on Tessalon Perles , Zithromax and albuterol inhaler. patient went home and returned to the emergency room due to worsening shortness of breath. Pt has been tested for covid twice and has been negative both times. Pt CT shows atypical pneumonia. Pt is weaning off oxygen. Pt being teted for TB in a isolation room. Review of Systems Review of Systems: All systems reviewed & are unremarkable except as noted in HPI and below Exam Narrative: Exam Narrative: Pt sitting up in the bed Const: General: cooperative, comfortable, no acute distress, well developed, alert, awake, acute distress mild and respiratory, anxious and other (WELL-APPEARING) Nutritional Appearance: average body habitus Orientation/consciousness: patient oriented x3 HENMT: Head: normal to inspection, normocephalic and atraumatic Ears: hearing grossly normal bilaterally Face and sinus: normal facial exam Eyes: General: appearance normal, both eyes and all related structures Pupils: Equal, round and reactive pupils present EOM: EOMs intact bilaterally Neck: Neck: full ROM, no lymphadenopathy and no JVD Thyroid: thyroid normal Lymphatic: no lymphadenopathy noted Resp: Effort & Inspection: normal respiratory effort, able to speak in complete sentences and tachypneic Auscultation: clear to auscultation bilaterally and diminished lung sounds Cardio: Jugular venous distension: no JVD Rate: regular rate Rhythm: regular rhythm Heart sounds: S1 normal heart sound present and S2 normal heart sound present : General: Yes deferred Skin: Rashes: no rashes and other (tattos on arms ) Wounds: no wounds Neuro: General: patient oriented x3 and CN's II-XI intact bilaterally Cranial nerves: Yes CN's II-XII intact bilaterally and Yes Equal, round and reactive pupils present Cognition (Neuro): normal cognition Speech: normal speech Gait exam (Neuro): Normal gait present Motor exam (neuro): 5/5 motor strength present throughout Extrem: General: normal to inspection,
[2021-02-13 18:09] LABS: Sodium 128 mmol/L (137-145)
[2021-02-13] MEDS: BENZONATATE 100 MG CAPSULE PO (18:47)
[2021-02-14] VITALS (25 sets, daily range): BP systolic 99–116; BP diastolic 49–67; PULSE 91–109; RESP 20–22; TEMP 36.6–37.6; O2SAT 87–97
[2021-02-14] MEDS: ALBUTEROL SULFATE NEB 2.5 MG/0.5 ML INH 5 MG INHALATION ×6 (00:05→20:02)
[2021-02-14] MEDS: IPRATROPIUM BR 0.02% INH SOLN 0.5 MG/2.5 ML VIAL INHALATION ×6 (00:06→20:02)
[2021-02-14] MEDS: BENZONATATE 100 MG CAPSULE PO ×3 (00:12→19:53)
[2021-02-14] MEDS: ACETAMINOPHEN 325 MG TABLET 650 MG PO (04:09)
[2021-02-14] MEDS: guaiFENesin/DEXTROMETHORPHAN 10 ML UDC 5 ML PO ×3 (04:11→22:40)
[2021-02-14 05:55] LABS: Hematocrit 31.2 % (42.0-52.0); Hemoglobin 10.8 g/dL (14.0-18.0); Mean Corpuscular HGB Conc 34.6 g/dl (32-36); Mean Corpuscular Hemoglobin 29.8 pg (26-34); Mean Platelet Volume 9.3 fl (7.4-10.4); Platelet Count Result 215 k/mm3 (150-375); Red Blood Count 3.63 M/mm3 (4.6-6.20); Red Cell Distribution Width 12.7 % (11.5-14.5)
[2021-02-14 06:17] LABS: Alanine Aminotransferase 112 U/L (4-50); Albumin Level 2.9 g/dL (3.5-5.1); Alkaline Phosphatase 144 U/L (38-126); Anion Gap 5 mmol/L (8-16); Aspartate Amino Transferase 128 U/L (17-59); Bilirubin,Total 0.4 mg/dL (0.2-1.3); Blood Urea Nitrogen 6 mg/dL (9-20); Calcium 8.1 mg/dL (8.4-10.2); Carbon Dioxide 26 mmol/L (22-30); Chloride 96 mmol/L (98-107); Estimated CRCL calculation 117 ml/min; Estimated Glomerular Filt Rate > 60; Glucose 114 mg/dL (75-110); Phosphorus 3.6 mg/dL (2.5-4.5); Potassium 3.4 mmol/L (3.4-5.0); Sodium 127 mmol/L (137-145)
[2021-02-14] MEDS: BUDESONIDE RESPULE NEB 0.5 MG/2 ML AMP INHALATION ×2 (07:38→20:02)
[2021-02-14 08:10] LABS: HIV 1 RNA PCR <1.30 Log cps/mL; HIV 1 RNA PCR <20 Copies/mL
[2021-02-14] MEDS: NICOTINE (*PBKC) 21 MG PATCH 1 PATCH TRANSDERM (08:22)
[2021-02-14] MEDS: DEXAMETHASONE SOD PHOS INJ 4 MG/ML VIAL 6 MG IV PUSH (08:22)
[2021-02-14] MEDS: PANTOPRAZOLE SODIUM IV 40 MG VIAL IV PUSH (08:23)
[2021-02-14] MEDS: ENOXAPARIN 40 MG/0.4 ML SYRINGE SUB-Q (08:23)
--- NOTE | 2021-02-14 10:24 | P.PNNP_ITS ---
Progress Note: A&P Assessment and Plan (1) Hyponatremia: Code(s): E87.1 - Hypo-osmolality and hyponatremia Status: Acute Assessment and Plan: * he has hyponatremia. * TSH is okay. * Cortrosyn stim test was negative. * His electrophoresis is pending * His urine osmolality is 203. 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 * Sodium levels: * 02/06 127 * 02/07 132 * 02/09 129 * 02/11 125 to 130 * 02/12 123 to 131 to 130 * 02/13 127 to 128 * 02/14 127 * continue 5L fluid restriction for now. We are holding our own with the sodium at 127. He has such struggles restricting fluid and I feel it is a Victory just keeping him down to4L per day. Once the lungs clear up hopefully the SIADH component of his problem will improve and his sodium will improve. So will plan to just hold our own at this level of sodium is long as it is not getting worse. (2) Acute respiratory failure with hypoxia: Code(s): J96.01 - Acute respiratory failure with hypoxia Status: Acute Assessment and Plan: * due to bacterial versus viral pneumonia * on antibiotic therapy * follow cultures * supplemental oxygen * Oxygenation is better. Down to3L. (3) Sepsis: Code(s): A41.9 - Sepsis, unspecified organism Status: Acute Assessment and Plan: * as noted by his presentation with leukocytosis, lactic acidosis, tachypnea, and tachycardia * follow cultures * on broad spectrum antibiotics * BP doing well * Being tested for TB * (4) Pneumonia: Code(s): J18.9 - Pneumonia, unspecified organism Status: Acute Assessment and Plan: * bacterial versus viral? * HIV screening test came back positive. however confirmatory test is negative. * Infectious Disease consulted * multiple cultures and serology pending. (5) Suspected 2019 novel coronavirus infection: Code(s): Z20.822 - Contact with and (suspected) exposure to COVID-19 Status: Acute Assessment and Plan: * COVD-19 testing negative x 2 * follow inflammatory markes * remains on isolation Subjective Date/time seen: 02/14/21 10:24 Interval history: The patient feels about the same. Last night his oxygen decreased so his O2 was increased to5L. Now his oxygen is better so is on only 3L. He is in an isolation room with negative pressure While getting tested for TB. Review of Systems Cardiovascular: Cardiovascular: Reports no additional cardiovascular complaints Respiratory: Respiratory: Reports no additional respiratory complaints Gastrointestinal: Gastrointestinal: Reports no additional gastrointestinal complaints Genitourinary: Genitourinary: Reports no additional male genitourinary complaints Exam Narrative: Exam Narrative: WDWN in NAD skin no rash head ncat lungs decreased breath sounds at the bases. Fairly clear otherwise cor reg no rub Or gallop. abd BS+ nontender and soft ext no edema. Objective Data Vital Signs Vital Signs: Vital Signs - 24 hr 02/13/21 11:56 02/13/21 12:05 02/13/21 14:00 Temperature 37.2 C Pulse Rate 96 96 95 Respiratory Rate 24 H 22 H 20 Blood Pressure 98/54 L Pulse Oximetry 97 02/13/21 15:28 02/13/21 15:37 02/13/21 19:47 Temperature Pulse Rate 84 84 101 H
--- NOTE | 2021-02-14 10:24 | PM.PNNEP ---
Progress Note: A&P Assessment and Plan (1) Hyponatremia: Code(s): E87.1 - Hypo-osmolality and hyponatremia Status: Acute Assessment and Plan: he has hyponatremia. TSH is okay. Cortrosyn stim test was negative. His electrophoresis is pending His urine osmolality is 203. 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 Sodium levels: 02/06 127 /16 132 / 129 02/11 125 to 130 02/12 123 to 131 to 130 02/13 127 to 128 02/14 127 continue 5L fluid restriction for now. We are holding our own with the sodium at 127. He has such struggles restricting fluid and I feel it is a Victory just keeping him down to4L per day. Once the lungs clear up hopefully the SIADH component of his problem will improve and his sodium will improve. So will plan to just hold our own at this level of sodium is long as it is not getting worse. (2) Acute respiratory failure with hypoxia: Code(s): J96.01 - Acute respiratory failure with hypoxia Status: Acute Assessment and Plan: due to bacterial versus viral pneumonia on antibiotic therapy follow cultures supplemental oxygen Oxygenation is better. Down to3L. (3) Sepsis: Code(s): A41.9 - Sepsis, unspecified organism Status: Acute Assessment and Plan: as noted by his presentation with leukocytosis, lactic acidosis, tachypnea, and tachycardia follow cultures on broad spectrum antibiotics BP doing well Being tested for TB (4) Pneumonia: Code(s): J18.9 - Pneumonia, unspecified organism Status: Acute Assessment and Plan: bacterial versus viral? HIV screening test came back positive. however confirmatory test is negative. Infectious Disease consulted multiple cultures and serology pending. (5) Suspected 2019 novel coronavirus infection: Code(s): Z20.822 - Contact with and (suspected) exposure to COVID-19 Status: Acute Assessment and Plan: COVD-19 testing negative x 2 follow inflammatory markes remains on isolation Subjective Date/time seen: 02/14/21 10:24 Interval history: The patient feels about the same. Last night his oxygen decreased so his O2 was increased to5L. Now his oxygen is better so is on only 3L. He is in an isolation room with negative pressure While getting tested for TB. Review of Systems Cardiovascular: Cardiovascular: Reports no additional cardiovascular complaints Respiratory: Respiratory: Reports no additional respiratory complaints Gastrointestinal: Gastrointestinal: Reports no additional gastrointestinal complaints Genitourinary: Genitourinary: Reports no additional male genitourinary complaints Exam Narrative: Exam Narrative: WDWN in NAD skin no rash head ncat lungs decreased breath sounds at the bases. Fairly clear otherwise cor reg no rub Or gallop. abd BS+ nontender and soft ext no edema. Objective Data Vital Signs Vital Signs: Vital Signs - 24 hr 02/13/21 11:56 02/13/21 12:05 02/13/21 14:00 Temperature 37.2 C Pulse Rate 96 96 95 Respiratory Rate 24 H 22 H 20 Blood Pressure 98/54 L Pulse Oximetry 97 02/13/21 15:28 02/13/21 15:37 02/13/21 19:47 Temperature Pulse Rate 84 84 101 H Respiratory Rate 22 H 22 H 20 Blood Pressure Pulse Oximetry 02/13/21 19:55 02/13/21 20:00 02/13/21 20:08 Temperature Pulse Rate 97 Respiratory Rate 20 Blood Pressure Pulse Oximetry 92 92 02/13/21 22:00 02/14/21 00:10 02/14/21 00:22 Temperature 37.0 C Pulse Rate 96 91 98 Respiratory Rate 20 20 20 Blood Pressure 104/63 Pulse Oximetry 93 02/14/21 01:53 02/14/21 01:54 02/14/21 04:09 Temperature 37.6 C H Pulse Rate Respiratory Rate Blood Pressure Pulse Oximetry 87 L 92 02/14/21 04:35 02/14/21 04:38 02/14/21 04:49 Temperature Pulse Rate 105 H 109 H Respiratory Rate 22 H 22 H Blood Pressure Pulse Oximetry
--- NOTE | 2021-02-14 13:41 | PM.IMPN ---
Progress Note: A&P Assessment and Plan (1) Community acquired pneumonia: Qualifiers: Laterality: unspecified laterality Qualified Code(s): J18.9 - Pneumonia, unspecified organism Code(s): J18.9 - Pneumonia, unspecified organism Status: Acute Assessment and Plan: Patient on broad-spectrum antibiotics Unusually ground glass opacities on CT chest Covid test is negative. Pt is weaning off oxygen, no fever today. Mycoplasma and legionella is negative HIV is negative ID consulted. (2) Acute respiratory failure with hypoxia: Code(s): J96.01 - Acute respiratory failure with hypoxia Status: Acute Assessment and Plan: Improving wean off oxygen, sodium is 127 (3) Hyponatremia: Code(s): E87.1 - Hypo-osmolality and hyponatremia Status: Acute Assessment and Plan: Likely combination of is IADH (4) Suspected 2019 novel coronavirus infection: Code(s): Z20.822 - Contact with and (suspected) exposure to COVID-19 Status: Acute Assessment and Plan: Patient has tested negative x2 (5) Tobacco dependence: Code(s): F17.200 - Nicotine dependence, unspecified, uncomplicated Status: Acute Assessment and Plan: Patient was a current everyday smoker Nicotine patch provided (6) HIV positive: Code(s): Z21 - Asymptomatic human immunodeficiency virus [HIV] infection status Status: Inactive Subjective Date/time seen: 02/14/21 13:41 Interval history: 45-year-old male with no significant past medical history he smokes 1 pack per day of cigarettes patient presented to the emergency room the day before due to chills rigors cough dry nonproductive of sputum he was tested for COVID test results came back negative and he was discharged home on Tessalon Perles , Zithromax and albuterol inhaler. patient went home and returned to the emergency room due to worsening shortness of breath. Pt has been tested for covid twice and has been negative both times. Pt CT shows atypical pneumonia. Pt is weaning off oxygen. Doing well. Review of Systems Review of Systems: All systems reviewed & are unremarkable except as noted in HPI and below Exam Narrative: Exam Narrative: Pt sitting up in the bed Const: General: comfortable and other (WELL-APPEARING) Nutritional Appearance: average body habitus Orientation/consciousness: patient oriented x3 HENMT: Head: normal to inspection, normocephalic and atraumatic Ears: hearing grossly normal bilaterally Face and sinus: normal facial exam Eyes: General: appearance normal, both eyes and all related structures Pupils: Equal, round and reactive pupils present EOM: EOMs intact bilaterally Neck: Neck: full ROM, no lymphadenopathy and no JVD Thyroid: thyroid normal Lymphatic: no lymphadenopathy noted Resp: Effort & Inspection: normal respiratory effort, able to speak in complete sentences and tachypneic Auscultation: clear to auscultation bilaterally and diminished lung sounds Cardio: Jugular venous distension: no JVD Rate: regular rate Rhythm: regular rhythm Heart sounds: S1 normal heart sound present and S2 normal heart sound present Skin: Rashes: no rashes and other (tattos on arms ) Wounds: no wounds Neuro: General: patient oriented x3 and CN's II-XI intact bilaterally Cranial nerves: Yes CN's II-XII intact bilaterally and Yes Equal, round and reactive pupils present Cognition (Neuro): normal cognition Speech: normal speech Gait exam (Neuro): Normal gait present Motor exam (neuro): 5/5 motor strength present throughout Extrem: General: normal to inspection, full ROM, no joint enlargement and no pedal edema Objective Data Vital Signs Vital Signs: Vital Signs - 24 hr 02/13/21 14:00 02/13/21 15:28 02/13/21 15:37 Temperature 37.2 C Pulse Rate 95 84 84 Respiratory Rate 20 22 H 22 H Blood Pressure 98/54 L Pulse Oximetry 97 02/13/21 19:47 02/13/21 19:55 02/13/21 20:00 Te
--- NOTE | 2021-02-14 16:34 | WPDINFPN2 ---
Progress Note: A&P Assessment and Plan (1) Pneumonia: Code(s): J18.9 - Pneumonia, unspecified organism Status: Acute Assessment and Plan: 1. Lung infiltrates and fever, suspect pneumonia. No + micro, improving though still O2 dependent 2. + HIV screen, with p24 Ag, but Ab and viral load NR. Conclusion: false + screen, and he needs no further evaluation. REC Stop TMP-SMX. IV PipTazo and Azithro for another 2-3 days depending on his oxygenation. Subjective Date/time seen: 02/14/21 16:34 Interval history: some cough. desat to 92 % RA. No dyspnea on 3 l Exam Narrative: Exam Narrative: t max 37.9 Const: General: no acute distress Other: looks better Resp: Effort & Inspection: normal respiratory effort Auscultation: clear to auscultation bilaterally Cardio: Rate: regular rate Rhythm: regular rhythm Heart sounds: no murmurs GI: Inspection: non-distended GI Palp: Yes Soft to palpation and No Tenderness to palpation present (GI) Skin: General skin exam: normal color and no rashes or lesions noted Objective Data Vital Signs Vital Signs: Vital Signs - 24 hr 02/13/21 19:47 02/13/21 19:55 02/13/21 20:00 Temperature Pulse Rate 101 H Respiratory Rate 20 Blood Pressure Pulse Oximetry 92 92 02/13/21 20:08 02/13/21 22:00 02/14/21 00:10 Temperature 37.0 C Pulse Rate 97 96 91 Respiratory Rate 20 20 20 Blood Pressure 104/63 Pulse Oximetry 93 02/14/21 00:22 02/14/21 01:53 02/14/21 01:54 Temperature Pulse Rate 98 Respiratory Rate 20 Blood Pressure Pulse Oximetry 87 L 92 02/14/21 04:09 02/14/21 04:35 02/14/21 04:38 Temperature 37.6 C H Pulse Rate 105 H Respiratory Rate 22 H Blood Pressure Pulse Oximetry 88 L 02/14/21 04:49 02/14/21 05:05 02/14/21 05:50 Temperature 36.8 C 36.8 C Pulse Rate 109 H 103 H Respiratory Rate 22 H 20 Blood Pressure 113/49 L Pulse Oximetry 95 02/14/21 06:40 02/14/21 07:39 02/14/21 07:49 Temperature Pulse Rate 102 H Respiratory Rate 20 Blood Pressure Pulse Oximetry 91 92 02/14/21 08:00 02/14/21 12:40 02/14/21 13:00 Temperature Pulse Rate 104 H Respiratory Rate 20 Blood Pressure Pulse Oximetry 92 94 02/14/21 14:00 02/14/21 15:03 02/14/21 16:11 Temperature 36.6 C Pulse Rate 96 96 Respiratory Rate 22 H 20 Blood Pressure 99/54 L Pulse Oximetry 97 96 Intake/Output Intake/Output: Intake & Output 02/11/21 02/12/21 02/13/21 02/14/21 23:59 23:59 23:59 23:59 Intake Total 6900 6400 3550 1940 Output Total 6850 6800 1125 1000 Balance 50 -400 2425 940 Meds/Results Medications: Active Medications Generic Name Dose Route Start Last Admin Trade Name Freq PRN Reason Stop Dose Admin Acetaminophen 650 mg 02/06/21 07:21 02/14/21 04:09 Acetaminophen 325 Mg Tablet PO 650 mg Q4H PRN Administration Mild Pain (1-3) or Fever Albuterol 2 puff 02/06/21 09:18 Albuterol Sulfate (*Sp) Aerosol 1 Puff INHALATION Q4-6H PRN shortness of breath or wheezing Albuterol 5 mg 02/06/21 12:00 02/14/21 16:10 Albuterol Sulfate Neb 2.5 Mg/0.5 Ml Inh INHALATION 5 mg Q4HRT JOHN Administration Benzonatate 100 mg 02/09/21 15:04 02/14/21 08:23 Benzonatate 100 Mg Capsule PO 100 mg TID PRN Administration cough Budesonide 0.5 mg 02/08/21 20:00 02/14/21 07:38 Budesonide Respule Neb 0.5 Mg/2 Ml Amp INHALATION 0.5 mg Q12HRT PENDING SALE TO [facility] Administration Calcium Carbonate 200 mg 02/10/21 15:05 02/10/21 19:39 Calcium Carbonate (Tums) 500 Mg (200 Mg Elemental) PO 200 mg Q4H PRN Administration Indigestion Dexamethasone Sodium Phosphate 6 mg 02/07/21 09:00 02/14/21 08:22 Dexamethasone Sod Phos Inj 4 Mg/Ml Vial IV PUSH 02/16/21 09:01 6 mg DAILY JOHN Administration Enoxaparin Sodium 40 mg 02/09/21 09:00 02/14/21 08:23 Enoxaparin 40 Mg/0.4 Ml Syringe SUB-Q 40 mg DAILY JOHN Administration Guaifenesin/D
[2021-02-14 18:12] LABS: Sodium 128 mmol/L (137-145)
[2021-02-15] VITALS (25 sets, daily range): BP systolic 100–114; BP diastolic 53–63; PULSE 86–116; RESP 18–22; TEMP 36.1–37.9; O2SAT 87–98
[2021-02-15] MEDS: IPRATROPIUM BR 0.02% INH SOLN 0.5 MG/2.5 ML VIAL INHALATION ×6 (00:09→20:06)
[2021-02-15] MEDS: ALBUTEROL SULFATE NEB 2.5 MG/0.5 ML INH 5 MG INHALATION ×6 (00:09→20:06)
[2021-02-15] MEDS: BENZONATATE 100 MG CAPSULE PO ×4 (00:39→23:51)
[2021-02-15] MEDS: ACETAMINOPHEN 325 MG TABLET 650 MG PO ×2 (02:00→13:08)
[2021-02-15 06:18] LABS: CRP 4.9 mg/dL (<1.0); Lactate Dehydrogenase 1084 U/L (313-618)
[2021-02-15 06:22] LABS: D Dimer 3.92 ug/mL (<0.48)
[2021-02-15] MEDS: BUDESONIDE RESPULE NEB 0.5 MG/2 ML AMP INHALATION ×2 (08:19→20:06)
[2021-02-15] MEDS: guaiFENesin/DEXTROMETHORPHAN 10 ML UDC 5 ML PO (08:59)
[2021-02-15] MEDS: ENOXAPARIN 40 MG/0.4 ML SYRINGE SUB-Q (08:59)
[2021-02-15] MEDS: PANTOPRAZOLE SODIUM IV 40 MG VIAL IV PUSH (08:59)
[2021-02-15] MEDS: DEXAMETHASONE SOD PHOS INJ 4 MG/ML VIAL 6 MG IV PUSH (09:01)
[2021-02-15 09:05] LABS: Anion Gap 4 mmol/L (8-16); Blood Urea Nitrogen 8 mg/dL (9-20); Calcium 8.4 mg/dL (8.4-10.2); Carbon Dioxide 26 mmol/L (22-30); Chloride 97 mmol/L (98-107); Estimated CRCL calculation 106 ml/min; Estimated Glomerular Filt Rate > 60; Glucose 100 mg/dL (75-110); Potassium 3.7 mmol/L (3.4-5.0); Sodium 127 mmol/L (137-145)
--- NOTE | 2021-02-15 09:45 | P.PNNP_ITS ---
Progress Note: A&P Assessment and Plan (1) Hyponatremia: Code(s): E87.1 - Hypo-osmolality and hyponatremia Status: Acute Assessment and Plan: * he has hyponatremia. * TSH is okay. * Cortrosyn stim test was negative. * His electrophoresis is pending * His urine osmolality is 203. 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 * Sodium levels: * 02/06 127 * 02/07 132 * 02/09 129 * 02/11 125 to 130 * 02/12 123 to 131 to 130 * 02/13 127 to 128 * 02/14 127 to 128 * 02/15 127 * continue 5L fluid restriction for now. Pulmonary situation seems to be improving. Hopefully the component of SIADH will improve as well and he will be able to tolerate more fluid intake. (2) Acute respiratory failure with hypoxia: Code(s): J96.01 - Acute respiratory failure with hypoxia Status: Acute Assessment and Plan: * due to bacterial versus viral pneumonia * on antibiotic therapy * follow cultures * supplemental oxygen * Oxygenation is about the same. He is on 3L nasal cannula. (3) Sepsis: Code(s): A41.9 - Sepsis, unspecified organism Status: Acute Assessment and Plan: * as noted by his presentation with leukocytosis, lactic acidosis, tachypnea, and tachycardia * follow cultures * on broad spectrum antibiotics * BP doing well * Off isolation now. * ID on the case. * (4) Pneumonia: Code(s): J18.9 - Pneumonia, unspecified organism Status: Acute Assessment and Plan: * bacterial versus viral? * HIV screening test came back positive. however confirmatory test is negative. * Infectious Disease consulted * multiple cultures and serology pending. (5) Suspected 2019 novel coronavirus infection: Code(s): Z20.822 - Contact with and (suspected) exposure to COVID-19 Status: Acute Assessment and Plan: * COVD-19 testing negative x 2 Subjective Date/time seen: 02/15/21 09:45 Interval history: The patient feels about the same. He coughed a lot last night. He still drinking 4L of fluid but was very thirsty last night after he coughed. Review of Systems Cardiovascular: Cardiovascular: Reports no additional cardiovascular complaints Respiratory: Respiratory: Reports no additional respiratory complaints Gastrointestinal: Gastrointestinal: Reports no additional gastrointestinal complaints Genitourinary: Genitourinary: Reports no additional male genitourinary complaints Exam 2 Narrative: Exam Narrative: WDWN in NAD skin no rash or subcu nodules head ncat lungs decreased breath sounds at the bases. Fairly clear otherwise cor reg no rub or gallop. abd BS+ nontender and soft ext no edema or cyanosis Objective Data Vital Signs Vital Signs: Vital Signs - 24 hr 02/14/21 12:40 02/14/21 13:00 02/14/21 14:00 Temperature 36.6 C Pulse Rate 104 H 96 Respiratory Rate 20 22 H Blood Pressure 99/54 L Pulse Oximetry 94 97 02/14/21 15:03 02/14/21 16:11 02/14/21 18:15 Temperature Pulse Rate 96 Respiratory Rate 20 Blood Pressure Pulse Oximetry 96 93 02/14/21 20:00 02/14/21 20:02 02/14/21 20:06 Temperature Pulse Rate 104 H 104 H Respiratory Rate 20 Bl
--- NOTE | 2021-02-15 09:45 | PM.PNNEP ---
Progress Note: A&P Assessment and Plan (1) Hyponatremia: Code(s): E87.1 - Hypo-osmolality and hyponatremia Status: Acute Assessment and Plan: he has hyponatremia. TSH is okay. Cortrosyn stim test was negative. His electrophoresis is pending His urine osmolality is 203. 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 Sodium levels: 02/06 127 /16 132 /18 129 / 125 to 130 02/12 123 to 131 to 130 02/13 127 to 128 02/14 127 to 128 02/15 127 continue 5L fluid restriction for now. Pulmonary situation seems to be improving. Hopefully the component of SIADH will improve as well and he will be able to tolerate more fluid intake. (2) Acute respiratory failure with hypoxia: Code(s): J96.01 - Acute respiratory failure with hypoxia Status: Acute Assessment and Plan: due to bacterial versus viral pneumonia on antibiotic therapy follow cultures supplemental oxygen Oxygenation is about the same. He is on 3L nasal cannula. (3) Sepsis: Code(s): A41.9 - Sepsis, unspecified organism Status: Acute Assessment and Plan: as noted by his presentation with leukocytosis, lactic acidosis, tachypnea, and tachycardia follow cultures on broad spectrum antibiotics BP doing well Off isolation now. ID on the case. (4) Pneumonia: Code(s): J18.9 - Pneumonia, unspecified organism Status: Acute Assessment and Plan: bacterial versus viral? HIV screening test came back positive. however confirmatory test is negative. Infectious Disease consulted multiple cultures and serology pending. (5) Suspected 2019 novel coronavirus infection: Code(s): Z20.822 - Contact with and (suspected) exposure to COVID-19 Status: Acute Assessment and Plan: COVD-19 testing negative x 2 Subjective Date/time seen: 02/15/21 09:45 Interval history: The patient feels about the same. He coughed a lot last night. He still drinking 4L of fluid but was very thirsty last night after he coughed. Review of Systems Cardiovascular: Cardiovascular: Reports no additional cardiovascular complaints Respiratory: Respiratory: Reports no additional respiratory complaints Gastrointestinal: Gastrointestinal: Reports no additional gastrointestinal complaints Genitourinary: Genitourinary: Reports no additional male genitourinary complaints Exam Narrative: Exam Narrative: WDWN in NAD skin no rash or subcu nodules head ncat lungs decreased breath sounds at the bases. Fairly clear otherwise cor reg no rub or gallop. abd BS+ nontender and soft ext no edema or cyanosis Objective Data Vital Signs Vital Signs: Vital Signs - 24 hr 02/14/21 12:40 02/14/21 13:00 02/14/21 14:00 Temperature 36.6 C Pulse Rate 104 H 96 Respiratory Rate 20 22 H Blood Pressure 99/54 L Pulse Oximetry 94 97 02/14/21 15:03 02/14/21 16:11 02/14/21 18:15 Temperature Pulse Rate 96 Respiratory Rate 20 Blood Pressure Pulse Oximetry 96 93 02/14/21 20:00 02/14/21 20:02 02/14/21 20:06 Temperature Pulse Rate 104 H 104 H Respiratory Rate 20 Blood Pressure Pulse Oximetry 96 92 02/14/21 20:15 02/14/21 22:00 02/15/21 00:10 Temperature 37.4 C Pulse Rate 101 H 101 H 101 H Respiratory Rate 20 20 20 Blood Pressure 116/67 Pulse Oximetry 94 02/15/21 00:21 02/15/21 00:22 02/15/21 00:48 Temperature Pulse Rate 98 101 H Respiratory Rate 20 Blood Pressure Pulse Oximetry 87 L 95 02/15/21 02:00 02/15/21 04:40 02/15/21 04:51 Temperature 37.7 C H Pulse Rate 105 H 116 H Respiratory Rate 22 H 20 Blood Pressure Pulse Oximetry 90 02/15/21 05:28 02/15/21 06:00 02/15/21 07:45 Temperature 36.4 C 36.3 C L Pulse Rate 102 H 110 H Respiratory Rate 22 H 20 Blood Pressure 106/57 L 110/60 Pulse Oximetry 93 96 02/15/21 08:20 02/15/21 08:33 Temperature Pul
[2021-02-15 10:04] LABS: Ferritin > 2000.00 ng/mL (17.9-464)
--- NOTE | 2021-02-15 12:59 | PM.IMPN ---
Progress Note: A&P Assessment and Plan (1) Community acquired pneumonia: Qualifiers: Laterality: unspecified laterality Qualified Code(s): J18.9 - Pneumonia, unspecified organism Code(s): J18.9 - Pneumonia, unspecified organism Status: Acute Assessment and Plan: Patient on broad-spectrum antibiotics zosyn and azithromycin Unusual ground glass opacities on CT chest on admission will repeat today ctchest Covid test is negative. legionella is negative HIV is negative ID consulted. TB test not ordered MYcoplasm is high in keeping with atypical pneumonia, pt is being treated with IV azithromycin. I will consult pulmology for recommendations Tessalricardo abdalla wit codeine given for cough Breathing treatment given for cough (2) Acute respiratory failure with hypoxia: Code(s): J96.01 - Acute respiratory failure with hypoxia Status: Acute Assessment and Plan: Improving wean off oxygen, sodium is 127 (3) Hyponatremia: Code(s): E87.1 - Hypo-osmolality and hyponatremia Status: Acute Assessment and Plan: Likely combination of is IAD (4) Suspected 2019 novel coronavirus infection: Code(s): Z20.822 - Contact with and (suspected) exposure to COVID-19 Status: Acute Assessment and Plan: Patient has tested negative x2 (5) Tobacco dependence: Code(s): F17.200 - Nicotine dependence, unspecified, uncomplicated Status: Acute Assessment and Plan: Patient was a current everyday smoker Nicotine patch provided Subjective Date/time seen: 02/15/21 12:59 Interval history: 45-year-old male with no significant past medical history he smokes 1 pack per day of cigarettes patient presented to the emergency room the day before due to chills rigors cough dry nonproductive of sputum he was tested for COVID test results came back negative and he was discharged home on Tessalon Perles , Zithromax and albuterol inhaler. patient went home and returned to the emergency room due to worsening shortness of breath. Pt has been tested for covid twice and has been negative both times. Pt CT shows atypical pneumonia. Pt does not feel well today coughing alot. HR is high, pt having low grade fever, will reorder blood culture, And CT chest. Pt seen by ID and nephrology. Review of Systems Review of Systems: All systems reviewed & are unremarkable except as noted in HPI and below Exam Narrative: Exam Narrative: Pt sitting up in the bed, younger man coughing alot looks tired Const: Nutritional Appearance: average body habitus Orientation/consciousness: patient oriented x3 HENMT: Head: normal to inspection, normocephalic and atraumatic Ears: hearing grossly normal bilaterally Eyes: General: appearance normal, both eyes and all related structures Pupils: Equal, round and reactive pupils present EOM: EOMs intact bilaterally Neck: Neck: full ROM, no lymphadenopathy and no JVD Thyroid: thyroid normal Lymphatic: no lymphadenopathy noted Resp: Effort & Inspection: able to speak in complete sentences Auscultation: clear to auscultation bilaterally and diminished lung sounds Cardio: Jugular venous distension: no JVD Rate: regular rate Rhythm: regular rhythm Heart sounds: S1 normal heart sound present and S2 normal heart sound present Skin: Rashes: no rashes and other (tattos on arms ) Wounds: no wounds Neuro: General: patient oriented x3 and CN's II-XI intact bilaterally Cranial nerves: Yes CN's II-XII intact bilaterally and Yes Equal, round and reactive pupils present Cognition (Neuro): normal cognition Speech: normal speech Gait exam (Neuro): Normal gait present Motor exam (neuro): 5/5 motor strength present throughout Extrem: General: normal to inspection, full ROM, no joint enlargement and no pedal edema Objective Data Vital Signs Vital Signs: Vital Signs - 24 hr 02/14/21 13:00 02/14/21 14:00 02/14/21 15:03 Temperature
--- NOTE | 2021-02-15 14:33 | PM.CNPUL ---
Assessment and Plan Assessment and plan (1) Atypical pneumonia: Code(s): J18.9 - Pneumonia, unspecified organism Status: Acute Assessment and Plan: This patient has atypical pneumonia and the differential includes diffuse alveolar hemorrhage, eosinophilic pneumonia, atypical fungal infection such as blastomycosis sees, Histoplasma is less likely but still possible as well as other atypical bacteria and viruses. His PCR for COVID-19 is negative. He did get some days of systemic corticosteroids which may have led to some clinical improvement but the diagnosis is still invasive at this point. My recommendation is he have a bronchoscopy with bronchial alveolar lavage as well as possible transbronchial biopsies. This can be done early next week and the patient is in agreement. Otherwise I have no further recommendations at this time. (2) Acute respiratory failure with hypoxia: Code(s): J96.01 - Acute respiratory failure with hypoxia Status: Acute History of Present Illness History of Present Illness Consult date: 02/15/21 Chief complaint: pneumonia,hypoxia Narrative: this is a very pleasant 45-year-old male who presents with symptoms of nonproductive cough, fevers, chills and diffuse weakness. He also began to have shortness of breath. He recently presented to the emergency department and was sent home on antibiotics. He did not get well and in fact got worse and presented to the emergency department with hypoxemic respiratory failure. He was originally admitted to the intensive care unit and was placed on noninvasive ventilation for short brief period but later improved. But his x-rays showed worsening pneumonia over the days since his admission. He had an HIV test which was originally positive but is now deemed to be a false-positive and so he does not have HIV as assessed by Infectious Diseases. He denies illicit drug use and denies any risk factors for HIV. He did start smoking cigarettes again approximately 2-3 weeks prior to his illness. He denies any recent exposure to birds or exotic animals, denies any recent travel or recent sick contacts, denies any exposure to mold. He has been smoking cigarettes on and off for multiple years. He has no prior history of lung disease. He did have oral or dental surgery about a month or 2 ago. Since his admission he has been on multiple antibiotics and is currently on azithromycin plus Zosyn. His COVID test was negative and corticosteroids were discontinued. A CT scan of the chest done this admission shows bilateral symmetric ground-glass opacities that are centrally based rather than peripheral. This picture can be consistent with diffuse alveolar hemorrhage sometimes And only about 2/3 of the patient's present with hemoptysis leaving a 3rd with no hemoptysis symptoms. He does have a consistent drop in his hemoglobin from about 13 on admission to about 10 currently. He did have leukocytosis on admission which has resolved. Review of Systems Review of Systems: All systems reviewed & are unremarkable except as noted in HPI and below PMFSH Past Medical History Medical History (Updated 02/15/21 @ 14:40 by Nicho Lozano MD) HIV positive False Positive Test No active medical problems Social History Social History Years smoked: 15 Smoking status: Former smoker Smoking end date: 01/31/21 Alcohol intake: never Substance use: never Gender identity (if verbalized by the patient): Male Spiritual care concerns: No Meds Home Medications and Allergies Home Medications Medication Instructions Recorded Confirmed Type albuterol sulfate 2 inh INHALATION Q4-6H PRN #1 ea 02/04/21 02/06/21 Rx azithromycin See Rx Instructions .ROUTE 02/04/21 02/06/21 Rx .COMPLEX #6 tablet benzonatate [Tessalon Perles] 100 mg PO BID PRN #10 cap 02/04/21 02/06/21 Rx Allergies Allerg
[2021-02-15] MEDS: guaiFENesin/CODEINE (*CRX) 200/20 MG 10 ML SYRUP PO ×2 (15:36→20:51)
[2021-02-16] VITALS (17 sets, daily range): BP systolic 96–112; BP diastolic 51–68; PULSE 76–119; RESP 20–24; TEMP 36.4–38; O2SAT 92–95
[2021-02-16] MEDS: ALBUTEROL SULFATE NEB 2.5 MG/0.5 ML INH 5 MG INHALATION ×6 (00:16→19:54)
[2021-02-16] MEDS: IPRATROPIUM BR 0.02% INH SOLN 0.5 MG/2.5 ML VIAL INHALATION ×3 (00:16→08:45)
[2021-02-16] MEDS: BENZONATATE 100 MG CAPSULE PO (04:57)
[2021-02-16 06:19] LABS: Hematocrit 31.9 % (42.0-52.0); Hemoglobin 10.8 g/dL (14.0-18.0); Mean Corpuscular HGB Conc 33.9 g/dl (32-36); Mean Corpuscular Hemoglobin 29.4 pg (26-34); Mean Corpuscular Volume 86.9 fl (80-100); Mean Platelet Volume 9.4 fl (7.4-10.4); Platelet Count Result 226 k/mm3 (150-375); Red Blood Count 3.67 M/mm3 (4.6-6.20); Red Cell Distribution Width 12.7 % (11.5-14.5); White Blood Count 11.5 K/mm3 (4.5-10.0)
[2021-02-16 06:31] LABS: Anion Gap 3 mmol/L (8-16); Blood Urea Nitrogen 6 mg/dL (9-20); Calcium 7.9 mg/dL (8.4-10.2); Carbon Dioxide 29 mmol/L (22-30); Chloride 93 mmol/L (98-107); Estimated CRCL calculation 117 ml/min; Estimated Glomerular Filt Rate > 60; Glucose 103 mg/dL (75-110); Potassium 3.8 mmol/L (3.4-5.0); Sodium 125 mmol/L (137-145)
--- NOTE | 2021-02-16 08:33 | P.PNNP_ITS ---
Progress Note: A&P Assessment and Plan (1) Hyponatremia: Code(s): E87.1 - Hypo-osmolality and hyponatremia Status: Acute Assessment and Plan: * he has hyponatremia. * TSH is okay. * Cortrosyn stim test was negative. * His electrophoresis is pending * His urine osmolality is 203. 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 * Sodium levels: * 02/06 127 * 02/07 132 * 02/09 129 * 02/11 125 to 130 * 02/12 123 to 131 to 130 * 02/13 127 to 128 * 02/14 127 to 128 * 02/15 127 * 02/16 125 * continue 4L fluid restriction for now. I reiterated to the patient that he should not be sneaking fluid. Said it would be okay to turn off the water in his bathroom to decrease his temptation. I talked with the nurse but she told me the problem is the extra water his brings in. She discussed with the as well. * Will check another sodium this afternoon. (2) Acute respiratory failure with hypoxia: Code(s): J96.01 - Acute respiratory failure with hypoxia Status: Acute Assessment and Plan: * due to bacterial versus viral pneumonia * on antibiotic therapy * follow cultures * supplemental oxygen * Oxygenation is about the same. He is on 3L nasal cannula. (3) Sepsis: Code(s): A41.9 - Sepsis, unspecified organism Status: Acute Assessment and Plan: * as noted by his presentation with leukocytosis, lactic acidosis, tachypnea, and tachycardia * follow cultures * on broad spectrum antibiotics * BP doing well * Off isolation now. * ID and pulmonary on the case. * (4) Pneumonia: Code(s): J18.9 - Pneumonia, unspecified organism Status: Acute Assessment and Plan: * bacterial versus viral? * HIV screening test came back positive. however confirmatory test is negative. * Infectious Disease consulted * multiple cultures and serology pending. (5) Suspected 2019 novel coronavirus infection: Code(s): Z20.822 - Contact with and (suspected) exposure to COVID-19 Status: Acute Assessment and Plan: * COVD-19 testing negative x 2 Subjective Date/time seen: 02/16/21 08:33 Interval history: The patient feels about the same. He coughed a lot last night. Patient was frustrated yesterday about his slow recovery. Eager to get more testing done. He still drinking 4L of fluid on paper, however his brings large containers of fluid when she visits. Review of Systems Cardiovascular: Cardiovascular: Reports no additional cardiovascular complain ts Respiratory: Respiratory: Reports no additional respiratory complaints Gastrointestinal: Gastrointestinal: Reports no additional gastrointestinal complaints Genitourinary: Genitourinary: Reports no additional male genitourinary complaints Exam Narrative: Exam Narrative: WDWN in NAD skin no rash or subcu nodules head ncat lungs decreased breath sounds at the bases. Fairly clear otherwise cor reg no rub or gallop. abd BS+ nontender and soft ext no edema or cyanosis Objective Data Vital Signs Vital Signs: Vital Signs - 24 hr 02/15/21 12:00 02/15/21 12:39 02/15/21 12:52 Temperature 37.9 C H Pulse Rate 94 97 100 Respiratory Rate 20 20 20 Blood Pressure 106/63 Pulse Oximetry 97 02/15/21 13:08 02/15/21 14:05 02/15/21
--- NOTE | 2021-02-16 08:33 | PM.PNNEP ---
Progress Note: A&P Assessment and Plan (1) Hyponatremia: Code(s): E87.1 - Hypo-osmolality and hyponatremia Status: Acute Assessment and Plan: he has hyponatremia. TSH is okay. Cortrosyn stim test was negative. His electrophoresis is pending His urine osmolality is 203. 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 Sodium levels: 02/06 127 / 132 / 129 02/11 125 to 130 02/12 123 to 131 to 130 02/13 127 to 128 02/14 127 to 128 02/15 127 02/16 125 continue 4L fluid restriction for now. I reiterated to the patient that he should not be sneaking fluid. Said it would be okay to turn off the water in his bathroom to decrease his temptation. I talked with the nurse but she told me the problem is the extra water his brings in. She discussed with the as well. Will check another sodium this afternoon. (2) Acute respiratory failure with hypoxia: Code(s): J96.01 - Acute respiratory failure with hypoxia Status: Acute Assessment and Plan: due to bacterial versus viral pneumonia on antibiotic therapy follow cultures supplemental oxygen Oxygenation is about the same. He is on 3L nasal cannula. (3) Sepsis: Code(s): A41.9 - Sepsis, unspecified organism Status: Acute Assessment and Plan: as noted by his presentation with leukocytosis, lactic acidosis, tachypnea, and tachycardia follow cultures on broad spectrum antibiotics BP doing well Off isolation now. ID and pulmonary on the case. (4) Pneumonia: Code(s): J18.9 - Pneumonia, unspecified organism Status: Acute Assessment and Plan: bacterial versus viral? HIV screening test came back positive. however confirmatory test is negative. Infectious Disease consulted multiple cultures and serology pending. (5) Suspected 2019 novel coronavirus infection: Code(s): Z20.822 - Contact with and (suspected) exposure to COVID-19 Status: Acute Assessment and Plan: COVD-19 testing negative x 2 Subjective Date/time seen: 02/16/21 08:33 Interval history: The patient feels about the same. He coughed a lot last night. Patient was frustrated yesterday about his slow recovery. Eager to get more testing done. He still drinking 4L of fluid on paper, however his brings large containers of fluid when she visits. Review of Systems Cardiovascular: Cardiovascular: Reports no additional cardiovascular complaints Respiratory: Respiratory: Reports no additional respiratory complaints Gastrointestinal: Gastrointestinal: Reports no additional gastrointestinal complaints Genitourinary: Genitourinary: Reports no additional male genitourinary complaints Exam Narrative: Exam Narrative: WDWN in NAD skin no rash or subcu nodules head ncat lungs decreased breath sounds at the bases. Fairly clear otherwise cor reg no rub or gallop. abd BS+ nontender and soft ext no edema or cyanosis Objective Data Vital Signs Vital Signs: Vital Signs - 24 hr 02/15/21 12:00 02/15/21 12:39 02/15/21 12:52 Temperature 37.9 C H Pulse Rate 94 97 100 Respiratory Rate 20 20 20 Blood Pressure 106/63 Pulse Oximetry 97 02/15/21 13:08 02/15/21 14:05 02/15/21 14:20 Temperature 37.9 C H 36.6 C 36.1 C L Pulse Rate Respiratory Rate Blood Pressure Pulse Oximetry 02/15/21 16:00 02/15/21 16:06 02/15/21 16:17 Temperature 36.6 C Pulse Rate 93 103 H 102 H Respiratory Rate 18 20 20 Blood Pressure 114/60 Pulse Oximetry 97 02/15/21 20:00 02/15/21 20:06 02/15/21 20:21 Temperature Pulse Rate 86 91 Respiratory Rate 20 20 Blood Pressure Pulse Oximetry 98 98 02/15/21 21:46 02/16/21 00:16 02/16/21 00:25 Temperature 36.3 C L Pulse Rate 86 98 95 Respiratory Rate 18 22 H 24 H Blood Pressure 100/53 L Pulse Oximetry 98 02/16/21 04:37 02/16/21 04:49 02/16/21 06:00 Temper
[2021-02-16] MEDS: BUDESONIDE RESPULE NEB 0.5 MG/2 ML AMP INHALATION ×2 (08:46→19:54)
[2021-02-16] MEDS: DORNASE ALFA INH SOLN 1 MG/ML 2.5 ML AMP 2.5 MG INHALATION ×2 (08:53→19:55)
[2021-02-16] MEDS: NICOTINE (*PBKC) 21 MG PATCH 1 PATCH TRANSDERM (09:57)
[2021-02-16] MEDS: PANTOPRAZOLE SODIUM IV 40 MG VIAL IV PUSH (09:58)
--- NOTE | 2021-02-16 10:33 | PM.IMPN ---
Progress Note: A&P Assessment and Plan (1) Community acquired pneumonia: Qualifiers: Laterality: unspecified laterality Qualified Code(s): J18.9 - Pneumonia, unspecified organism Code(s): J18.9 - Pneumonia, unspecified organism Status: Acute Assessment and Plan: Patient on broad-spectrum antibiotics zosyn and azithromycin Unusual ground glass opacities on CT chest on admission will repeat today ctchest Covid test is negative. legionella is negative HIV is negative ID consulted. TB test not ordered MYcoplasm is high in keeping with atypical pneumonia, pt is being treated with IV azithromycin. I will consult pulmonology for recommendations pulmonology recommends bronchoscopy as ct chest looked worse since admission Bc and sputum cultures are pending Tessalon Perles, Robitussin wit codeine given for cough Breathing treatment given for cough (2) Acute respiratory failure with hypoxia: Code(s): J96.01 - Acute respiratory failure with hypoxia Status: Acute Assessment and Plan: Improving wean off oxygen, sodium is 125 (3) Hyponatremia: Code(s): E87.1 - Hypo-osmolality and hyponatremia Status: Acute Assessment and Plan: Likely combination of is IADH (4) Suspected 2019 novel coronavirus infection: Code(s): Z20.822 - Contact with and (suspected) exposure to COVID-19 Status: Acute Assessment and Plan: Patient has tested negative x2 (5) Tobacco dependence: Code(s): F17.200 - Nicotine dependence, unspecified, uncomplicated Status: Acute Assessment and Plan: Patient was a current everyday smoker Nicotine patch provided Subjective Date/time seen: 02/16/21 10:33 Interval history: 45-year-old male with no significant past medical history he smokes 1 pack per day of cigarettes patient presented to the emergency room the day before due to chills rigors cough dry nonproductive of sputum he was tested for COVID test results came back negative and he was discharged home on Tessalon Perles, Zithromax and albuterol inhaler. patient went home and returned to the emergency room due to worsening shortness of breath. Pt has been tested for covid twice and has been negative both times. Pt CT shows atypical pneumonia. Pt appears slightly better today. No fever, Pt is frustrated that his ct chest is worse when he feels better, wants to talk more to Pulmonology, explained that his pneumonia is atypical and bronchoscopy will give us better idea of the cause of the pneumonia. No obvious risks apart from starting smoking recently Review of Systems Review of Systems: All systems reviewed & are unremarkable except as noted in HPI and below Exam Narrative: Exam Narrative: Pt sitting up in the bed, younger man coughing alot looks tired Const: General: other (WELL-APPEARING) HENMT: Head: normal to inspection, normocephalic and atraumatic Resp: Effort & Inspection: able to speak in complete sentences Auscultation: clear to auscultation bilaterally and diminished lung sounds Cardio: Jugular venous distension: no JVD Rate: regular rate Rhythm: regular rhythm Heart sounds: S1 normal heart sound present and S2 normal heart sound present Skin: Rashes: no rashes and other (tattos on arms ) Wounds: no wounds Neuro: General: patient oriented x3 and CN's II-XI intact bilaterally Cranial nerves: Yes CN's II-XII intact bilaterally and Yes Equal, round and reactive pupils present Cognition (Neuro): normal cognition Speech: normal speech Gait exam (Neuro): Normal gait present Motor exam (neuro): 5/5 motor strength present throughout Extrem: General: normal to inspection, full ROM, no joint enlargement and no pedal edema Objective Data Vital Signs Vital Signs: Vital Signs - 24 hr 02/15/21 12:00 02/15/21 12:39 02/15/21 12:52 Temperature 37.9 C H Pulse Rate 94 97 100 Respiratory Rate 20 20 20 Blood Pressure 106/63 Pulse Oximetry
--- NOTE | 2021-02-16 12:46 | PM.PNPUL ---
Progress Note: A&P Assessment and Plan (1) Atypical pneumonia: Code(s): J18.9 - Pneumonia, unspecified organism Status: Acute Assessment and Plan: This patient has atypical pneumonia and the differential includes diffuse alveolar hemorrhage, eosinophilic pneumonia, atypical fungal infection such as blastomycosis sees, Histoplasma is less likely but still possible as well as other atypical bacteria and viruses. His PCR for COVID-19 is negative. He did get some days of systemic corticosteroids which may have led to some clinical improvement but the diagnosis is still invasive at this point. My recommendation is he have a bronchoscopy with bronchial alveolar lavage as well as possible transbronchial biopsies. This can be done early next week and the patient is in agreement. Otherwise I have no further recommendations at this time. Subjective Date/time seen: 02/16/21 12:46 Interval history: the patient has no changes since yesterday. I reviewed his CT Of the chest that was repeated yesterday. The central bilateral opacities have of Ultmann and have become more interstitial and peribronchial whereas the ground-glass opacities have move more peripheral. The differential remains the same and his diagnosis remains elusive. Review of Systems Review of Systems: All systems reviewed & are unremarkable except as noted in HPI and below Exam Narrative: Exam Narrative: Pt sitting up in the bed, younger man coughing alot looks tired Const: Nutritional Appearance: average body habitus Orientation/consciousness: patient oriented x3 HENMT: Head: normal to inspection, normocephalic and atraumatic Ears: hearing grossly normal bilaterally Eyes: General: appearance normal, both eyes and all related structures Pupils: Equal, round and reactive pupils present EOM: EOMs intact bilaterally Neck: Neck: full ROM, no lymphadenopathy and no JVD Thyroid: thyroid normal Lymphatic: no lymphadenopathy noted Resp: Effort & Inspection: normal respiratory effort and able to speak in complete sentences Auscultation: clear to auscultation bilaterally and diminished lung sounds Cardio: Jugular venous distension: no JVD Rate: regular rate Rhythm: regular rhythm Heart sounds: S1 normal heart sound present and S2 normal heart sound present Skin: Rashes: no rashes and other (tattos on arms ) Wounds: no wounds Neuro: General: patient oriented x3 and CN's II-XI intact bilaterally Cranial nerves: Yes CN's II-XII intact bilaterally and Yes Equal, round and reactive pupils present Cognition (Neuro): normal cognition Speech: normal speech Gait exam (Neuro): Normal gait present Motor exam (neuro): 5/5 motor strength present throughout Extrem: General: normal to inspection, full ROM, no joint enlargement and no pedal edema Objective Data Vital Signs Vital Signs: Vital Signs - 24 hr 02/15/21 12:52 02/15/21 13:08 02/15/21 14:05 Temperature 37.9 C H 36.6 C Pulse Rate 100 Respiratory Rate 20 Blood Pressure Pulse Oximetry 02/15/21 14:20 02/15/21 16:00 02/15/21 16:06 Temperature 36.1 C L 36.6 C Pulse Rate 93 103 H Respiratory Rate 18 20 Blood Pressure 114/60 Pulse Oximetry 97 02/15/21 16:17 02/15/21 20:00 02/15/21 20:06 Temperature Pulse Rate 102 H 86 Respiratory Rate 20 20 Blood Pressure Pulse Oximetry 98 98 02/15/21 20:21 02/15/21 21:46 02/16/21 00:16 Temperature 36.3 C L Pulse Rate 91 86 98 Respiratory Rate 20 18 22 H Blood Pressure 100/53 L Pulse Oximetry 98 02/16/21 00:25 02/16/21 04:37 02/16/21 04:49 Temperature Pulse Rate 95 91 97 Respiratory Rate 24 H 20 20 Blood Pressure Pulse Oximetry 02/16/21 06:00 02/16/21 08:48 02/16/21 09:10 Temperature 36.4 C Pulse Rate 103 H 76 78 Respiratory Rate 20 20 20 Blood Pressure 112/68 Pulse Oximetry 95 93 02/16/21 12:32 Temperature Pulse Rate 104 H Respiratory Rate 20 Blood Pressure Pulse Oximetry
[2021-02-16] MEDS: guaiFENesin/CODEINE (*CRX) 200/20 MG 10 ML SYRUP PO ×2 (12:53→20:29)
[2021-02-16] MEDS: SODIUM CHLORIDE 0.9% IV 1,000 ML 70 ML IV CONT (12:53)
[2021-02-16 16:11] LABS: Sodium 127 mmol/L (137-145)
[2021-02-16] MEDS: ACETAMINOPHEN 325 MG TABLET 650 MG PO (20:29)
[2021-02-17] VITALS (18 sets, daily range): BP systolic 102–107; BP diastolic 53–68; PULSE 94–113; RESP 16–20; TEMP 36.8–37.7; O2SAT 91–98
[2021-02-17] MEDS: ALBUTEROL SULFATE NEB 2.5 MG/0.5 ML INH 5 MG INHALATION ×6 (00:42→20:06)
[2021-02-17 01:46] LABS: Absolute CD4 Count 1129 cells/uL (490-1740); Lymphocytes, Absolute 2712 cells/uL (850-3900); Percent CD4 Cells 42 % (30-61)
[2021-02-17 06:02] LABS: Creatinine, Random Urine 14 mg/dL (20-320)
[2021-02-17 06:18] LABS: Hematocrit 33.3 % (42.0-52.0); Hemoglobin 11.5 g/dL (14.0-18.0); Mean Corpuscular HGB Conc 34.5 g/dl (32-36); Mean Corpuscular Hemoglobin 29.6 pg (26-34); Mean Corpuscular Volume 85.6 fl (80-100); Mean Platelet Volume 9.4 fl (7.4-10.4); Platelet Count Result 228 k/mm3 (150-375); Red Blood Count 3.89 M/mm3 (4.6-6.20); Red Cell Distribution Width 12.5 % (11.5-14.5)
[2021-02-17 06:26] LABS: Anion Gap 4 mmol/L (8-16); Blood Urea Nitrogen 6 mg/dL (9-20); Calcium 7.6 mg/dL (8.4-10.2); Carbon Dioxide 26 mmol/L (22-30); Chloride 95 mmol/L (98-107); Estimated CRCL calculation 130 ml/min; Estimated Glomerular Filt Rate > 60; Glucose 111 mg/dL (75-110); Phosphorus 3.1 mg/dL (2.5-4.5); Potassium 3.8 mmol/L (3.4-5.0); Sodium 125 mmol/L (137-145)
[2021-02-17] MEDS: SODIUM CHLORIDE 0.9% IV 1,000 ML 70 ML IV CONT ×2 (07:34→23:13)
[2021-02-17] MEDS: NICOTINE (*PBKC) 21 MG PATCH 1 PATCH TRANSDERM (08:24)
[2021-02-17] MEDS: DORNASE ALFA INH SOLN 1 MG/ML 2.5 ML AMP 2.5 MG INHALATION ×2 (08:39→20:06)
[2021-02-17] MEDS: BUDESONIDE RESPULE NEB 0.5 MG/2 ML AMP INHALATION ×2 (08:39→20:05)
--- NOTE | 2021-02-17 09:20 | PM.PNPUL ---
Progress Note: A&P Assessment and Plan (1) Atypical pneumonia: Code(s): J18.9 - Pneumonia, unspecified organism Status: Acute Assessment and Plan: Patient improving clinically and now on RA. CXR today has improved as well. We discussed benefits and risks of bronchoscopy with biopsies and at this time given his clinical improvement he wishes to defer on bronchoscopy. OWTN-Bckbp-0 negative, Flu swab negative, Urine legionella negative, urine strept negative. I sent blasto antibody and urine histo antigen today. I will send RF, MITRA extended autoimmune panel, ANCA and hypersensitivity assay looking for additional etiologies of pulmonary infiltrates. Continue zosyn (started 02/08) and azithromycin (started 02/10) for now. Also recieved ceftriaxone, vanco and septra during this hospitalization. Will follow with you. Subjective Date/time seen: 02/17/21 09:20 Interval history: Patient states he is better today and near normal, some MONTIEL, no rest SOB, slept well last night, Currently on 1 L sats 95% and I turned to RA and sats 93%. CXR improved bilateral infiltrates. WBC 13.0K. Review of Systems Review of Systems: All systems reviewed & are unremarkable except as noted in HPI and below Eyes: Eyes: Reports no additional eye complaints ENT: Reports system reviewed and no additional complaints, except as documented and Reports sinus pressure Cardiovascular: Cardiovascular: Reports no additional cardiovascular complaints Respiratory: Respiratory: Reports as per HPI, Reports no additional respiratory complaints, Denies dyspnea and Reports dyspnea on exertion Gastrointestinal: Gastrointestinal: Reports no additional gastrointestinal complaints Musculoskeletal: Musculoskeletal: Reports no additional musculoskeletal complaints Integumentary/Breasts: Skin/Breast: Reports system reviewed and no additional complaints, except as docu Neurologic: Reports system reviewed and no additional complaints, except as documented Psychiatric: Psychiatric: Reports no additional psychiatric complaints Endocrine: Endocrine: Reports no additional endocrine complaints Exam Const: General: cooperative and healthy appearing Orientation/consciousness: oriented to person, oriented to place and oriented to time HENMT: Head: normal to inspection Ears: hearing grossly normal bilaterally Mouth: Yes Normal oral and palatal mucosa present Throat: tonsils absent Eyes: General: appearance normal, both eyes and all related structures Neck: Neck: normal visual inspection Chest: Chest palpation & inspection: normal inspection of the chest Resp: Effort & Inspection: normal respiratory effort Auscultation: no crackles, no rales, no rhonchi and no wheezes Cardio: Jugular venous distension: no JVD GI: Inspection: normal to inspection Skin: General skin exam: normal color Neuro: General: oriented to person, oriented to place and oriented to time Extrem: General: normal to inspection Psych: Appearance: grossly normal Objective Data Vital Signs Vital Signs: Vital Signs - 24 hr 02/16/21 12:32 02/16/21 12:47 02/16/21 14:00 Temperature 37.1 C Pulse Rate 104 H 98 108 H Respiratory Rate 20 20 20 Blood Pressure 108/67 Pulse Oximetry 92 02/16/21 16:20 02/16/21 16:29 02/16/21 19:54 Temperature Pulse Rate 99 99 105 H Respiratory Rate 20 Blood Pressure Pulse Oximetry 93 02/16/21 20:00 02/16/21 20:12 02/16/21 20:29 Temperature 38.0 C H Pulse Rate 101 H Respiratory Rate 20 Blood Pressure Pulse Oximetry 94 02/16/21 22:00 02/17/21 00:00 02/17/21 00:42 Temperature 38.0 C H 36.9 C Pulse Rate 119 H 96 97 Respiratory Rate 20 20 20 Blood Pressure 96/51 L 102/64 Pulse Oximetry 94 92 02/17/21 00:51 02/17/21 04:44 02/17/21 04:55 Temperature Pulse Rate 94 95 100 Respiratory Rate 20 20 20 Blood Pressure Pulse Oximetry 02/17/21 06:00 02/17/21 07:45 02/17/21 08:39 Temperat
[2021-02-17 10:24] LABS: Rheumatoid Factor 73.4 IU/ML (<12)
--- NOTE | 2021-02-17 12:38 | WPDINFPN2 ---
Progress Note: A&P Assessment and Plan (1) Pneumonia: Code(s): J18.9 - Pneumonia, unspecified organism Status: Acute Assessment and Plan: 1. Lung infiltrates and fever, suspect pneumonia.Improving status, though WBC up slightly. 2. + HIV screen, false +. CD4 panel is normal. REC IV PipTazo #10, Azithro #7. Stop and place on 4 days more therapy orally. F/U CXR in several weeks with club lounge attendant. Call if Qs. Subjective Date/time seen: 02/17/21 12:38 Interval history: no dyspnea at rest, minimal dyspnea (get anxious ) with exertion. +cough with sputum. Chest pain only when coughs Exam Narrative: Exam Narrative: t max 38.0 Const: General: no acute distress Eyes: General: appearance normal, both eyes and all related structures Resp: Effort & Inspection: normal respiratory effort Auscultation: clear to auscultation bilaterally and lung sounds not diminished Cardio: Rate: regular rate Rhythm: regular rhythm Heart sounds: no murmurs and no rubs GI: Inspection: non-distended GI Palp: Yes Soft to palpation and No Tenderness to palpation present (GI) Objective Data Vital Signs Vital Signs: Vital Signs - 24 hr 02/16/21 12:47 02/16/21 14:00 02/16/21 16:20 Temperature 37.1 C Pulse Rate 98 108 H 99 Respiratory Rate 20 20 Blood Pressure 108/67 Pulse Oximetry 92 02/16/21 16:29 02/16/21 19:54 02/16/21 20:00 Temperature Pulse Rate 99 105 H Respiratory Rate 20 Blood Pressure Pulse Oximetry 93 94 02/16/21 20:12 02/16/21 20:29 02/16/21 22:00 Temperature 38.0 C H 38.0 C H Pulse Rate 101 H 119 H Respiratory Rate 20 20 Blood Pressure 96/51 L Pulse Oximetry 94 02/17/21 00:00 02/17/21 00:42 02/17/21 00:51 Temperature 36.9 C Pulse Rate 96 97 94 Respiratory Rate 20 20 20 Blood Pressure 102/64 Pulse Oximetry 92 02/17/21 04:44 02/17/21 04:55 02/17/21 06:00 Temperature 37.7 C H Pulse Rate 95 100 111 H Respiratory Rate 20 20 20 Blood Pressure 107/53 L Pulse Oximetry 98 02/17/21 07:45 02/17/21 08:39 02/17/21 08:43 Temperature Pulse Rate 112 H 112 H Respiratory Rate 20 18 Blood Pressure Pulse Oximetry 96 93 02/17/21 08:49 Temperature Pulse Rate 112 H Respiratory Rate 20 Blood Pressure Pulse Oximetry Intake/Output Intake/Output: Intake & Output 02/14/21 02/15/21 02/16/21 02/17/21 23:59 23:59 23:59 23:59 Intake Total 3990 2970 3050 2800 Output Total 2150 594 199 9957 Balance 1840 2320 2550 1000 Meds/Results Medications: Active Medications Generic Name Dose Route Start Last Admin Trade Name Freq PRN Reason Stop Dose Admin Acetaminophen 650 mg 02/06/21 07:21 02/16/21 20:29 Acetaminophen 325 Mg Tablet PO 650 mg Q4H PRN Administration Mild Pain (1-3) or Fever Albuterol 2 puff 02/06/21 09:18 Albuterol Sulfate (*Sp) Aerosol 1 Puff INHALATION Q4-6H PRN shortness of breath or wheezing Albuterol 5 mg 02/06/21 12:00 02/17/21 08:39 Albuterol Sulfate Neb 2.5 Mg/0.5 Ml Inh INHALATION 5 mg Q4HRT JOHN Administration Benzonatate 100 mg 02/09/21 15:04 02/16/21 04:57 Benzonatate 100 Mg Capsule PO 100 mg TID PRN Administration cough Budesonide 0.5 mg 02/08/21 20:00 02/17/21 08:39 Budesonide Respule Neb 0.5 Mg/2 Ml Amp INHALATION 0.5 mg Q12HRT JOHN Administration Calcium Carbonate 200 mg 02/10/21 15:05 02/10/21 19:39 Calcium Carbonate (Tums) 500 Mg (200 Mg Elemental) PO 200 mg Q4H PRN Administration Indigestion Dornase Adrian 2.5 mg 02/16/21 08:00 02/16/21 19:55 Dornase Adrian Inh Soln 1 Mg/Ml 2.5 Ml Amp INHALATION 2.5 mg Q12HRT JOHN Administration Guaifenesin/Codeine Phosphate 10 ml 02/15/21 12:43 02/16/21 20:29 Guaifenesin/Codeine (*Crx) 200/20 Mg 10 Ml Syrup PO 10 ml Q4H PRN Administration Cough Piperacillin Sod/Tazobactam Sod 4.5 gm in 100 mls @ 200 mls/hr 02/08/21 12:00 02/17/21 12:24 Zosyn 4.5 Gm/D5w 100
[2021-02-17] MEDS: ACETAMINOPHEN 325 MG TABLET 650 MG PO (15:12)
[2021-02-17] MEDS: guaiFENesin/CODEINE (*CRX) 200/20 MG 10 ML SYRUP PO ×2 (15:13→23:21)
--- NOTE | 2021-02-17 15:17 | PM.IMPN ---
Progress Note: A&P Assessment and Plan (1) Community acquired pneumonia: Qualifiers: Laterality: unspecified laterality Qualified Code(s): J18.9 - Pneumonia, unspecified organism Code(s): J18.9 - Pneumonia, unspecified organism Status: Acute Assessment and Plan: Patient on broad-spectrum antibiotics zosyn and azithromycin Unusual ground glass opacities on CT chest on admission will repeat today ct chest Covid test is negative. legionella is negative HIV is negative ID consulted. TB test not ordered MYcoplasm is high in keeping with atypical pneumonia, pt is being treated with IV azithromycin. I will consult pulmonology for recommendations pulmonology recommends bronchoscopy as ct chest looked worse since admission Bc and sputum cultures are pending Kade Padillaitussun with codeine given for cough Breathing treatment given for cough Pt is seen by ID and pulmology pt had histo and blasto serum tests sent today. Pt does not want to have bronchoscopy. (2) Acute respiratory failure with hypoxia: Code(s): J96.01 - Acute respiratory failure with hypoxia Status: Acute Assessment and Plan: Improving wean off oxygen, sodium is 125 (3) Hyponatremia: Code(s): E87.1 - Hypo-osmolality and hyponatremia Status: Acute Assessment and Plan: Likely combination of is IADH (4) Suspected 2019 novel coronavirus infection: Code(s): Z20.822 - Contact with and (suspected) exposure to COVID-19 Status: Acute Assessment and Plan: Patient has tested negative x2 (5) Tobacco dependence: Code(s): F17.200 - Nicotine dependence, unspecified, uncomplicated Status: Acute Assessment and Plan: Patient was a current everyday smoker Nicotine patch provided Subjective Date/time seen: 02/17/21 15:17 Interval history: 45-year-old male with no significant past medical history he smokes 1 pack per day of cigarettes patient presented to the emergency room the day before due to chills rigors cough dry nonproductive of sputum he was tested for COVID test results came back negative and he was discharged home on Tessalon Perles, Zithromax and albuterol inhaler. patient went home and returned to the emergency room due to worsening shortness of breath. Pt has been tested for covid twice and has been negative both times. Pt CT shows atypical pneumonia. Pt appears slightly better today. No fever. Pt is seen by ID and pulmology pt had histo and blasto serum tests sent today. Pt does not want to have bronchoscopy. Review of Systems Review of Systems: All systems reviewed & are unremarkable except as noted in HPI and below Exam Narrative: Exam Narrative: Pt sitting up in the bed, wet cough ongoing Const: General: other (WELL-APPEARING) Nutritional Appearance: average body habitus Orientation/consciousness: patient oriented x3 HENMT: Head: normocephalic Neck: Neck: full ROM, no lymphadenopathy and no JVD Thyroid: thyroid normal Lymphatic: no lymphadenopathy noted Resp: Effort & Inspection: able to speak in complete sentences Auscultation: clear to auscultation bilaterally and diminished lung sounds Cardio: Jugular venous distension: no JVD Rate: regular rate Rhythm: regular rhythm Heart sounds: S1 normal heart sound present and S2 normal heart sound present Skin: Rashes: no rashes and other (tattos on arms ) Wounds: no wounds Neuro: General: patient oriented x3 and CN's II-XI intact bilaterally Cranial nerves: Yes CN's II-XII intact bilaterally and Yes Equal, round and reactive pupils present Cognition (Neuro): normal cognition Speech: normal speech Gait exam (Neuro): Normal gait present Motor exam (neuro): 5/5 motor strength present throughout Extrem: General: normal to inspection, full ROM, no joint enlargement and no pedal edema Objective Data Vital Signs Vital Signs: Vital Signs - 24 hr 02/16/21 16:20 02/16/21 16:29
--- NOTE | 2021-02-17 16:40 | P.PNNP_ITS ---
Progress Note: A&P Assessment and Plan (1) Hyponatremia: Code(s): E87.1 - Hypo-osmolality and hyponatremia Status: Acute Assessment and Plan: * due to mild SIADH from respiratory issues coupled with baseline excessive free water/fluid drinking/intake * evaluation to date: - TSH okay - cortisol lowish but cosyntropin stimulation test negative - SPEP with a faint restricted band (M-spike) migrating in the gamma globulin region but UPEP negative * continue 4L fluid restriction for now * complicated by patient sneaking fluid intake and reportedly bringing in extra water/fluid * follow trend of sodium but suspect this will continue to fluctuate...particularly after discharge (2) Acute respiratory failure with hypoxia: Code(s): J96.01 - Acute respiratory failure with hypoxia Status: Acute Assessment and Plan: * resolving and due to pneumonia * on antibiotic therapy * follow cultures * supplemental oxygen PRN * serological testing penidng * Pulmonary following with recommendations noted (3) Sepsis: Code(s): A41.9 - Sepsis, unspecified organism Status: Acute Assessment and Plan: * as noted by his presentation with leukocytosis, lactic acidosis, tachypnea, and tachycardia * follow cultures * on broad spectrum antibiotics * BP doing well * ID and pulmonary on the case. (4) Pneumonia: Code(s): J18.9 - Pneumonia, unspecified organism Status: Acute Assessment and Plan: * bacterial versus viral? * HIV screening test came back positive -- however confirmatory test is negative * Infectious Disease following * multiple cultures and serology pending Will continue to follow. Subjective Date/time seen: 02/17/21 16:40 Chart reviewed since last seen -- clinically better with regard to his respiratory status; sodium remains low but relatively stable; no other acute events/issues overnight or earlier this AM. Exam Narrative: Exam Narrative: General: WD/WN male in NAD Heart: normal S1 and S2; no rub Lungs: clear anteriorly Abdomen: soft, nontender, nondistended, positive bowel sounds Extremities: no cyanosis or clubbing; no edema Skin: warm and dry Objective Data Vital Signs Vital Signs: Vital Signs Temp Pulse Resp BP Pulse Ox 02/17/21 14:00 37.3 C 112 H 16 104/68 93 02/17/21 13:42 100 20 02/17/21 13:32 100 20 02/17/21 08:49 112 H 20 04/26/21 08:43 112 H 18 93 02/17/21 08:39 112 H 20 02/17/21 07:45 96 02/17/21 06:00 37.7 C H 111 H 20 107/53 L 98 02/17/21 04:55 100 20 02/17/21 04:44 95 20 02/17/21 00:51 94 20 02/17/21 00:42 97 20 02/17/21 00:00 36.9 C 96 20 102/64 92 02/16/21 22:00 38.0 C H 119 H 20 96/51 L 94 02/16/21 20:29 38.0 C H 02/16/21 20:12 101 H 20 02/16/21 20:00 94 02/16/21 19:54 105 H 20 93 Intake/Output Intake/Output: Intake & Output 02/14/21 02/15/21 02/16/21 02/17/21 23:59 23:59 23:59 23:59 Intake Total 3990 2970 3050 3840 Output Total 2150 289 802 2587 Balance 1840 2320 2550 840 Meds/Results Medications: Active Medications
--- NOTE | 2021-02-17 16:40 | PM.PNNEP ---
Progress Note: A&P Assessment and Plan (1) Hyponatremia: Code(s): E87.1 - Hypo-osmolality and hyponatremia Status: Acute Assessment and Plan: due to mild SIADH from respiratory issues coupled with baseline excessive free water/fluid drinking/intake evaluation to date: - TSH okay - cortisol lowish but cosyntropin stimulation test negative - SPEP with a faint restricted band (M-spike) migrating in the gamma globulin region but UPEP negative continue 4L fluid restriction for now complicated by patient sneaking fluid intake and reportedly bringing in extra water/fluid follow trend of sodium but suspect this will continue to fluctuate...particularly after discharge (2) Acute respiratory failure with hypoxia: Code(s): J96.01 - Acute respiratory failure with hypoxia Status: Acute Assessment and Plan: resolving and due to pneumonia on antibiotic therapy follow cultures supplemental oxygen PRN serological testing penidng Pulmonary following with recommendations noted (3) Sepsis: Code(s): A41.9 - Sepsis, unspecified organism Status: Acute Assessment and Plan: as noted by his presentation with leukocytosis, lactic acidosis, tachypnea, and tachycardia follow cultures on broad spectrum antibiotics BP doing well ID and pulmonary on the case. (4) Pneumonia: Code(s): J18.9 - Pneumonia, unspecified organism Status: Acute Assessment and Plan: bacterial versus viral? HIV screening test came back positive -- however confirmatory test is negative Infectious Disease following multiple cultures and serology pending Will continue to follow. Subjective Date/time seen: 02/17/21 16:40 Chart reviewed since last seen -- clinically better with regard to his respiratory status; sodium remains low but relatively stable; no other acute events/issues overnight or earlier this AM. Exam Narrative: Exam Narrative: General: WD/WN male in NAD Heart: normal S1 and S2; no rub Lungs: clear anteriorly Abdomen: soft, nontender, nondistended, positive bowel sounds Extremities: no cyanosis or clubbing; no edema Skin: warm and dry Objective Data Vital Signs Vital Signs: Vital Signs Temp Pulse Resp BP Pulse Ox 02/17/21 14:00 37.3 C 112 H 16 104/68 93 02/17/21 13:42 100 20 02/17/21 13:32 100 20 02/17/21 08:49 112 H 20 02/17/21 08:43 112 H 18 93 02/17/21 08:39 112 H 20 02/17/21 07:45 96 02/17/21 06:00 37.7 C H 111 H 20 107/53 L 98 02/17/21 04:55 100 20 02/17/21 04:44 95 20 02/17/21 00:51 94 20 02/17/21 00:42 97 20 02/17/21 00:00 36.9 C 96 20 102/64 92 02/16/21 22:00 38.0 C H 119 H 20 96/51 L 94 02/16/21 20:29 38.0 C H 02/16/21 20:12 101 H 20 02/16/21 20:00 94 02/16/21 19:54 105 H 20 93 Intake/Output Intake/Output: Intake & Output 02/14/21 02/15/21 02/16/21 02/17/21 23:59 23:59 23:59 23:59 Intake Total 3990 2970 3050 3840 Output Total 2150 427 421 8447 Balance 1840 2320 2550 840 Meds/Results Medications: Active Medications Generic Name Dose Route Start Last Admin Trade Name Freq PRN Reason Stop Dose Admin Acetaminophen 650 mg 02/06/21 07:21 02/17/21 15:12 Acetaminophen 325 Mg Tablet PO 650 mg Q4H PRN Administration Mild Pain (1-3) or Fever Albuterol 2 puff 02/06/21 09:18 Albuterol Sulfate (*Sp) Aerosol 1 Puff INHALATION Q4-6H PRN shortness of breath or wheezing Albuterol 5 mg 02/06/21 12:00 02/17/21 17:28 Albuterol Sulfate Neb 2.5 Mg/0.5 Ml Inh INHALATION 5 mg Q4HRT JOHN Administration Benzonatate 100 mg 02/09/21 15:04 02/16/21 04:57 Benzonatate 100 Mg Capsule PO 100 mg TID PRN Administration cough Budesonide 0.5 mg 02/08/21 20:00 02/17/21 08:39 Budesonide Respule Neb 0.5 Mg/2 Ml Amp INHALATION 0
[2021-02-17] MEDS: DOXYCYCLINE HYCLATE 100 MG TABLET PO (20:28)
[2021-02-18] MEDS: ALBUTEROL SULFATE NEB 2.5 MG/0.5 ML INH 5 MG INHALATION ×2 (00:06→07:50)
[2021-02-18 00:09] VITALS: PULSE 111; RESP 18
[2021-02-18 00:20] VITALS: PULSE 117; RESP 18
[2021-02-18 06:00] VITALS: BP 116/61; PULSE 103; RESP 16; TEMP 36.4; O2SAT 91
[2021-02-18 06:21] LABS: Hematocrit 33.1 % (42.0-52.0); Hemoglobin 11.3 g/dL (14.0-18.0); Mean Corpuscular HGB Conc 34.1 g/dl (32-36); Mean Corpuscular Hemoglobin 29.9 pg (26-34); Mean Corpuscular Volume 87.6 fl (80-100); Mean Platelet Volume 9.4 fl (7.4-10.4); Platelet Count Result 224 k/mm3 (150-375); Red Blood Count 3.78 M/mm3 (4.6-6.20); Red Cell Distribution Width 12.8 % (11.5-14.5); White Blood Count 11.1 K/mm3 (4.5-10.0)
[2021-02-18 06:36] LABS: Anion Gap 1 mmol/L (8-16); Blood Urea Nitrogen 5 mg/dL (9-20); Calcium 7.5 mg/dL (8.4-10.2); Carbon Dioxide 29 mmol/L (22-30); Chloride 97 mmol/L (98-107); Estimated CRCL calculation 147 ml/min; Estimated Glomerular Filt Rate > 60; Glucose 105 mg/dL (75-110); Potassium 3.7 mmol/L (3.4-5.0); Sodium 127 mmol/L (137-145)
[2021-02-18 07:50] VITALS: PULSE 101; RESP 18; O2SAT 92
[2021-02-18] MEDS: BUDESONIDE RESPULE NEB 0.5 MG/2 ML AMP INHALATION (07:50)
[2021-02-18] MEDS: DORNASE ALFA INH SOLN 1 MG/ML 2.5 ML AMP 2.5 MG INHALATION (07:50)
--- NOTE | 2021-02-18 08:07 | PM.PNPUL ---
Progress Note: A&P Assessment and Plan (1) Atypical pneumonia: Code(s): J18.9 - Pneumonia, unspecified organism Status: Acute Assessment and Plan: 02/17 Patient improving clinically and now on RA. CXR today has improved as well. We discussed benefits and risks of bronchoscopy with biopsies and at this time given his clinical improvement he wishes to defer on bronchoscopy. PUMG-Sisxh-4 negative, Flu swab negative, Urine legionella negative, urine strept negative. I sent blasto antibody and urine histo antigen today. I will send RF, MITRA extended autoimmune panel, ANCA and hypersensitivity assay looking for additional etiologies of pulmonary infiltrates. Continue zosyn (started 02/08) and azithromycin (started 02/10) for now. Also recieved ceftriaxone, vanco and septra during this hospitalization. 02/18 Continues to improve clinically. On RA with sats 91-93%. Changed to doxycycline by ID on 02/17. WBC 11.1 and afebrile. I will DC nebulizers today. RF elevated at 73.4 with remainder of serologies pending. Patient with no clinical history of arthritis, sore joints, rashes. Would refer to rheumatology as outpatient. Ready for discharge from pulmonary perspective. doxycycline 100 BID and levaquin 500 Qday per ID recommendations of 3 more days to complete 14 days antibiotics. Oxygen per Home O2 assessment (I have ordered this morning) Smoking cessation and avoidance of second hand smoke discussed with patient Follow up in pulmonary clinic in 3 weeks with CXR beforehand. I gave patient our business card to call and informed our engine watchman. Will need repeat CT scan in about 6 weeks as well. Left message with Dr. Francisco. Call with questions. Subjective Date/time seen: 02/18/21 08:07 Interval history: 02/15 new consult 45-year-old male who presents with symptoms of nonproductive cough, fevers, chills and diffuse weakness. He also began to have shortness of breath. He recently presented to the emergency department and was sent home on antibiotics. He did not get well and in fact got worse and presented to the emergency department with hypoxemic respiratory failure. He was originally admitted to the intensive care unit and was placed on noninvasive ventilation for short brief period but later improved. But his x-rays showed worsening pneumonia over the days since his admission. He had an HIV test which was originally positive but is now deemed to be a false-positive and so he does not have HIV as assessed by Infectious Diseases. He denies illicit drug use and denies any risk factors for HIV. He did start smoking cigarettes again approximately 2-3 weeks prior to his illness. He denies any recent exposure to birds or exotic animals, denies any recent travel or recent sick contacts, denies any exposure to mold. He has been smoking cigarettes on and off for multiple years. He has no prior history of lung disease. He did have oral or dental surgery about a month or 2 ago. Since his admission he has been on multiple antibiotics and is currently on azithromycin plus Zosyn. His COVID test was negative and corticosteroids were discontinued. A CT scan of the chest done this admission shows bilateral symmetric ground-glass opacities that are centrally based rather than peripheral. This picture can be consistent with diffuse alveolar hemorrhage sometimes And only about 2/3 of the patient's present with hemoptysis leaving a 3rd with no hemoptysis symptoms. He does have a consistent drop in his hemoglobin from about 13 on admission to about 10 currently. He did have leukocytosis on admission which has resolved. 02/17 Patient states he is better today and near normal, some MONTIEL, no rest SOB, slept well last night, Currently on 1 L sats 95% and I turned to RA and sats 93%. CXR improved bilateral infiltrates. WBC 13.0K. Later in day zosyn and azithro changed to levaquin and doxycycline by ID. 02/18 Continues to improve, minimal cough and minimal phlegm
[2021-02-18 08:11] VITALS: PULSE 109; RESP 18
[2021-02-18] MEDS: DOXYCYCLINE HYCLATE 100 MG TABLET PO (08:41)
[2021-02-18] MEDS: NICOTINE (*PBKC) 21 MG PATCH 1 PATCH TRANSDERM (08:41)
--- NOTE | 2021-02-18 10:16 | PM.DS ---
DS: Admitting Diagnosis Admitting Diagnosis Admitting Diagnosis: 1) Community acquired pneumonia: (2) Acute respiratory failure with hypoxia: (3) Tobacco dependence: DS: Discharge Diagnosis Discharge Diagnosis (1) Atypical pneumonia: Code(s): J18.9 - Pneumonia, unspecified organism Status: Acute Assessment and Plan: PATIENT WILL COMPLETE 3 MORE DAYS OF LEVOFLOXACIN AND DOXYCYCLINE IN THE OUTPATIENT SETTING (2) Hyponatremia: Code(s): E87.1 - Hypo-osmolality and hyponatremia Status: Acute Assessment and Plan: PATIENT DRINKS LARGE AMOUNTS OF PLAIN WATER DAILY ALSO A COMPONENT OF SIADH IT IS VERY POSSIBLE DUE TO PNEUMONIA PATIENT GIVEN EDUCATION REGARDING CONSUMPTION OF PLAIN WATER (3) Suspected 2019 novel coronavirus infection: Code(s): Z20.822 - Contact with and (suspected) exposure to COVID-19 Status: Acute Assessment and Plan: WAS RULED OUT X2 (4) Tobacco dependence: Code(s): F17.200 - Nicotine dependence, unspecified, uncomplicated Status: Acute Assessment and Plan: ENCOURAGED TOBACCO CESSATION PATIENT STATED THAT HE HAS QUIT (5) Acute respiratory failure with hypoxia: Code(s): J96.01 - Acute respiratory failure with hypoxia Status: Acute Assessment and Plan: RESOLVED SECONDARY TO PNEUMONIA (6) Sepsis: Code(s): A41.9 - Sepsis, unspecified organism Status: Acute Assessment and Plan: SECONDARY TO PNEUMONIA DS: Summary Hospital Course Reason for hospitalization: SHORTNESS OF BREATH Hospital Course: THIS IS A 45-YEAR-OLD MALE WITH KNOWN SIGNIFICANT PAST MEDICAL HISTORY HE SMOKES A PACK PER DAY FOR 30 YEARS ACTIVE CURRENT DAY EVERY DAY SMOKER HE PRESENTED TO THE EMERGENCY ROOM DUE TO SHORTNESS OF BREATH HE WAS TESTED FOR COVID AND SENT HOME ON Z-EASTON AND DEXAMETHASONE PATIENT CAME BACK THE NEXT DAY WITH WORSENING SHORTNESS OF BREATH HE WAS FOUND TO HAVE EXTENSIVE LUNG INFILTRATES HE WAS RULED OUT FOR COVID A 2ND TIME AND HE REQUIRE HIGH-FLOW NASAL CANNULA DUE TO LOW SATURATIONS AND HYPOXIC RESPIRATORY FAILURE PATIENT WAS ALSO PLACED IN ISOLATION HE HAD EXTENSIVE WORKUP FOR INFECTIOUS ETIOLOGIES DUE TO A TYPICAL PRESENTATION OF HIS PNEUMONIA AND RESPIRATORY FAILURE. PATIENT WAS ALSO RULED OUT FOR TB PATIENT HAD A POSITIVE REACTIVE HIV SCREEN WITH A NEGATIVE CONFIRMATION IT WAS DEEMED TO BE A FALSE POSITIVE BY INFECTIOUS DISEASE. CONSULTS OBTAINED: CRITICAL CARE PHARMACY TECHNICIAN INFUSION, AGRICULTURAL TECHNICAL OFFICER, INFECTIOUS DISEASE. PROCEDURES PERFORMED: NO PROCEDURES. AGRICULTURAL TECHNICAL OFFICER SUGGESTED TO HAVE A BRONCHOSCOPY BUT PATIENT DECLINED. HE WILL FOLLOW-UP IN OUTPATIENT SETTING WITH PULMONOLOGY. PLEASE SEE CONSULTATIONS NOTES ELSEWHERE IN THIS CHART Status at Discharge Cognitive/behavioral status at discharge: AAOX3 Functional status at discharge: independent ambulation Time Spent with Patient Time attestation: Total time spent providing and/or coordinating discharge services: Exam Narrative: Exam Narrative: PATIENT IS SITTING IN THE CHAIR Const: General: comfortable, no acute distress, well developed, alert and awake Nutritional Appearance: average body habitus Orientation/consciousness: patient oriented x3 HENMT: Head: normal to inspection, normocephalic and atraumatic Ears: hearing grossly normal bilaterally Face and sinus: normal facial exam Eyes: General: appearance normal, both eyes and all related structures Pupils: Equal, round and reactive pupils present EOM: EOMs intact bilaterally Neck: Neck: full ROM, no lymphadenopathy and no JVD Thyroid: thyroid normal Lymphatic: no lymphadenopathy noted Resp: Effort & Inspection: normal respiratory effort and able to speak in complete sentences Auscultation: clear to auscultation bilaterally Cardio: Jugular venous distension: no JVD Rate: regular rate Rhythm: regular rhythm Heart sounds: S1 normal heart sound present and S2 normal heart sound pr
[2021-02-21 14:37] LABS: Blastomyces Antibody Negative (Negative)
[2021-02-22 01:25] LABS: ANCA Screen Negative (Negative)
== END 2021-02-18 10:50 | disposition home or self-care (01) | DRG 720 ==
LOC: ANHED 07:27 → ANH3MEDSUR 07:44 → ANHIMU 18:57 → ANHICU 02-08 11:21 → ANH3MEDSUR 02-14 09:49 → ANHICU 02-19 10:41
PROVIDERS: Internal Medicine; Internal Medicine Infectious Disease; Internal Medicine Nephrology; Internal Medicine Pulmonary Disease; Admitting Provider Internal Medicine; Emergency Provider Emergency Medicine; Visit Provider Family Medicine
DX: A41.9 Sepsis, unspecified organism (principal); J18.9 Pneumonia, unspecified organism; J96.01 Acute respiratory failure with hypoxia; F17.210 Nicotine dependence, cigarettes, uncomplicated; R65.20 Severe sepsis without septic shock; Z20.822 Contact with and (suspected) exposure to COVID-19; E22.2 Syndrome of inappropriate secretion of antidiuretic hormone
CPT/HCPCS: 36415; 36430; 36600; 71045; 71275; 76705; 80048; 80053; 80069; 80074; 80202; 81001; 82436; 82533; 82565; 82570; 82728; 82805; 83036; 83605; 83615; 83735; 83880; 83883; 83930; 83935; 84100; 84133; 84155; 84156; 84165; 84166; 84295; 84300; 84443; 84460; 84484; 85025; 85027; 85380; 85610; 85730; 86021; 86038; 86140; 86331; 86361; 86430; 86606; 86609; 86612; 86703; 86738; 86900; 86901; 87040; 87070; 87081; 87205; 87385; 87389; 87449; 87536; 87804; 87899; 93005; 94002; 94003; 94640; 94667; 96365; 96367; 96375; 99285; A9270; C8929; C9113; C9803; G0432; J0456; J0696; J0834; J1100; J1650; J2405; J2543; J2930; J3370; J7030; J7050; P9059; Q9957; Q9967; U0003; U0005

== ENCOUNTER 2021-02-27 14:46 | Outpatient (CLI) | payer SELFPAY ==
--- NOTE | ~2021-02-27 | XR_ITS ---
EXAMINATION: XR chest 2V DATE: 02/27/2021 15:14 INDICATION: Pneumonia. Cough and shortness of breath. TECHNIQUE: Frontal and lateral views of the chest were obtained. COMPARISON: Chest single view 02/17/2021, chest CT 02/15/2021 FINDINGS: There are airspace opacities in all right lung zones and in left mid and lower lung zones w ith a right hilar prominence. No pleural effusion or pneumothorax. The heart size is normal. IMPRESSION: 1. Diffuse lung disease with interval improvement, consistent with pneumonia. Reviewed, dictated and finalized at location A.
== END 2021-02-27 14:47 | disposition home or self-care (01) ==
PROVIDERS: Visit Provider Internal Medicine Pulmonary Disease
DX: J18.9 Pneumonia, unspecified organism (principal)
CPT/HCPCS: 71046